=== PATIENT | female | born 1970 ===

== ENCOUNTER 2019-09-08 08:52 | Outpatient (RCR) | payer BC ==
[~2019-09-08] VITALS: Ht 167.4 cm; Wt 115.9 kg
[~2019-09-08 08:52] MED LIST: CETI10TA21 PO; MONT10TA21 PO
[2019-09-14] MEDS ORDERED: IBUP-844 PO (12:52)
[2019-09-14] MEDS ORDERED: DOCU-143 PO (12:52)
[2019-09-14] MEDS ORDERED: TRZ50T PO (12:52)
[2019-09-14] MEDS ORDERED: ACET-93 PO (12:52)
[2019-09-14] MEDS ORDERED: OXYC5TAB96 PO (12:52)
[2019-09-14] MEDS ORDERED: SIME80TA16 PO (12:52)
== END 2019-09-08 14:42 | disposition home or self-care (01) ==
LOC: PREOP 08:52
PROVIDERS: ATTEND Obstetrics & Gynecology
DX: Z01.818 Encounter for other preprocedural examination (principal); Z11.59 Encounter for screening for other viral diseases
CPT/HCPCS: 87635

== ENCOUNTER 2019-09-12 09:15 | Inpatient (IN) | payer BC ==
[~2019-09-12] VITALS: Ht 167 cm; Wt 115.9 kg
[2019-09-12] VITALS (10 sets, daily range): BP systolic 119–156; BP diastolic 79–95
[2019-09-12] MEDS ORDERED: metroNIDAZOLE 500MG/100ML IVPB 100 ML IV ONE (09:30)
[2019-09-12] MEDS ORDERED: ceFAZolin INJECTION 1,000 MG in WATER (STERILE) FOR INJECTION 10 ML IV ONE (09:30)
[2019-09-12 09:41] LABS: BILIRUBIN,URINE NEGATIVE (NEGATIVE); CLARITY,URINE CLEAR; COLOR,URINE YELLOW; GLUCOSE, URINE (UA) NEGATIVE (NEGATIVE); KETONES,URINE 1+ (NEGATIVE); LEUKOCYTE ESTERASE ,URINE NEGATIVE (NEGATIVE); NITRITE,URINE NEGATIVE (NEGATIVE); PROTEIN,URINE NEGATIVE (NEGATIVE)
--- OUTSIDE RECORDS SUMMARY | 2019-09-12 09:47 | XMS REPORT ---
Author Author Ana Pinto Organization [facility] Address [address] [place], [place] [id number] Care Team Providers Care Rehab Assistant Name Role Phone Sondra Pinto PCP Sondra Pinto PreferredProvider Allergies and Adverse Reactions Name Reaction Notes PENICILLINS hives Bactrim DS Plan of Treatment Not available. Medications Active Name Start Date Estimated Completion Date SIG Co mments cetirizine 10 mg oral tablet 03/08/2019 danyelle e 1 tablet (10 mg) by oral route once daily montelukast 10 mg oral tablet 03/08/2019 ta ke 1 tablet (10 mg) by oral route once daily in the evening Symbicort 160-4.5 mcg/actuation inhalation HFA aerosol inhal er 07/10/2019 09/08/2019 inhale1 puffs by inhalation route 4 clara es per day AND RINSE THROAT AFTER USING Name Start Date Expiration Date SIG Comments Keflex 500 mg oral capsule 07/19/2009 07/26/2009 take 1 capsule (500 mg) by oral route every 12 hours for 7 days Flagyl 500 mg oral tablet 09/30/2010 10/05/2010 take 1 tablet (500 mg) by oral route every 8 hours for 5 days Cipro 500 mg oral tablet 09/30/2010 10/05/2010 take 1 tablet (500 mg) by oral route every 12 hours for 5 days Zithromax Z-Javier 250 mg oral tablet 08/07/2011 08/12/2011 take 2 tablets (500 mg) by oral route once daily for 1 day then 1 tablet (250 mg) by oral route once daily for 4 days Levaquin 500 mg oral tablet 08/26/2011 09/09/2011 take 1 tablet (500 mg) by oral route once daily for 7 days benzonatate 200 mg oral capsule 03/01/2012 03/11/2012 TAKE 1 CAPSULE BY MOUTH THREE TIMES DAILY NEEDED Zithromax Z-Javier 250 mg oral tablet 06/01/2012 06/06/2012 take 2 tablets (500 mg) by oral route once daily for 1 day then 1 tablet (250 mg) by oral route once daily for 4 days Cipro 500 mg oral tablet 03/06/2014 03/13/2014 take 1 tablet (500 mg) by oral route every 12 hours for 7 days doxycycline hyclate 100 mg oral capsule 06/04/2014 5 take 1 capsule (100 mg) by oral route 2 times per day for 7 days Zithromax Z-Javier 250 mg oral tablet 10/16/2014 10/26/2014 take 2 tablets (500 mg) by oral route once daily for 1 day then 1 tablet (250 mg) by oral route once daily for 4 days Contrave 8-90 mg oral tablet extended release 10/23/2014 take 2 tablets by oral route 2 times per day in the morning and evening for 30 days azithromycin 250 mg oral tablet 03/28/2016 04/02/2016 take 2 tablets (500 mg) by oral route once daily for 1 day then 1 tablet (250 mg) by oral route once daily for 4 days prednisone 20 mg oral tablet 03/28/2016 04/03/2016 Danyelle e 3 tabs x 2 days; then 2 tabs x 2 days; then 1 tab x 2 days Vibramycin 100 mg oral capsule 05/25/2017 06/04/2017 1 CAP BID FOR 10 DAYS Symbicort 160-4.5 mcg/actuation inhalation HFA aerosol inhal er 05/25/2017 06/24/2017 inhale1 puff by inhalation route 4 times per day AND THEN RINSE THROAT Medrol (Javier) 4 mg oral tablets,dose pack 06/04/2017 take as directed 6<5<4,3<2,>1 Zithromax 250 mg oral tablet 12/23/2017 12/28/2017 danyelle e 2 tablets (500 mg) by oral route once daily for 1 day then 1 tablet (250 mg) by oral route once daily for 4 days Medrol (Javier) 4 mg oral tablets,dose pack 12/23/2017 12/30/19 18 take 6 today then 5>4>3>2>1 lovastatin 10 mg oral tablet 03/07/2018 09/03/2018 danyelle e 1 tablet (10 mg) by oral route once daily with the evening meal ON Wednesday AND WEDNESDAY doxycycline hyclate 100 mg oral capsule 05/05/2018 9 take 1 capsule (100 mg) by oral route 2 times per day for 7 days prednisone 20 mg oral tablet 05/05/2018 danyelle e 2 tablet (40 mg) po x 3 days and then 1 tab (20 MG) po x 4 days Cipro 500 mg oral tablet 07/27/2018 08/06/2018 take 1 tablet (500 mg) by oral route every 12 hours for 10 days Zithromax 250 mg oral tablet 02/08/2019 02/13/2019 danyelle e 2 tablets (500 mg) by oral route once daily for 1 day then 1 tablet (250 mg) by oral route once daily for 4 days Tamiflu 75 mg oral capsule 05/24/2019 06/03/2019 take 1 capsule (75 mg) by oral route once daily for 10 days Zithromax 250 mg oral tablet 06/19/2019 06/30/2019 danyelle e 2 tablets (500 mg) by oral route once daily for 1 day then 1 tablet (250 mg) by oral route once daily for 10 days Discontinued Name Start Date Discontinued Date SIG Comments nystatin 100,000 unit/gram topical cream 011 apply to the affected area(s) by topical route 3 times per day DEJON (28) 3-0.02 mg oral tablet 02/03/2010 02/07/2010 t mehreen 1 tablet by oral route once daily for 28 days Too expensive Microgestin FE 05/08 () 1 mg-20 mcg (21)/75 mg (7) oral tab let 02/07/2010 01/30/2011 take 1 tablet by oral route once daily WelChol 625 mg oral tablet 09/30/2010 01/30/2011 take 3 tablets (1,875 mg) by oral route 2 times per day with meals and liquid Medrol (Javier) 4 mg oral tablets,dose pack 01/30/2011 04/24/2011 take as directed prednisone 20 mg oral tablet 06/04/2014 06/04/2014 Danyelle e 2 tabs PO x 2 days, then 1 tab PO x 2 days Lexapro 10 mg oral tablet 12/05/2015 04/21/2017 take 1 tablet (10 mg) by oral route once daily nystatin 100,000 unit/gram topical powder 07/21/2016 04/21/19 18 apply to the affected area(s) by topical route 3 times per day Zithromax 250 mg oral tablet 04/21/2017 05/04/2017 danyelle e 2 tablets (500 mg) by oral route once daily for 1 day then 1 tablet (250 mg) by oral route once daily for 4 days cyclobenzaprine 10 mg oral tablet 05/04/2017 05/25/201704/20 to 1 tablet at bedtime for muscle spasms and headaches montelukast 10 mg oral tablet 12/29/2017 02/22/2018 ta ke 1 tablet (10 mg) by oral route once daily in the evening for 30 days Skelaxin 800 mg oral tablet 07/22/2018 01/30/2019 take 1 tablet (800 mg) by oral route 3 times per day as needed cyclobenzaprine 5 mg oral tablet 07/22/2018 01/30/2019 take 1 tablet (5 mg) by oral route daily at HS PRN Problem List Description Status Onset Mixed hyperlipidemia Active 03/07/2018 [place] (nonalcoholic steatohepatitis) Active 02/17 Vital Signs Date Time BP-Sys(mm[Hg] BP-Sweta(mm[Hg]) HR(bpm) RR(rpm) Temp WT HT HC BMI BSA BMI Percentile O2 Sat(%) 07/10/2019 2:21:00 PM 144 mm[Hg] 90 mm[Hg] 78 {beats}/min 18 rpm 98.2 F 263 lbs 66 in 42.4489 kg/m2 2.3569 m2 94 % 06/19/2019 10:00:00 AM 132 mm[Hg] 86 mm[Hg] 80 {beats}/min 18 rpm 98.2 F 251 lbs 66 in 40.51 kg/m2 2.30 m2 96 % 06/05/2019 10:05:00 AM 110 mm[Hg] 70 mm[Hg] 72 {beats}/min 18 rpm 98.8 F 254.5 lbs 66 in 41.077 kg/m2 2.3185 m2 96 % 04/18/2019 3:15:00 PM 138 mm[Hg] 88 mm[Hg] 78 {beats}/min 18 rpm 98.8 F 264 lbs 66 in 42.61 kg/m2 2.36 m2 96 % 02/08/2019 10:42:00 AM 142 mm[Hg] 92 mm[Hg] 88 {beats}/min 18 rpm 98.8 F 255 lbs 66 in 41.1577 kg/m2 2.3208 m2 96 % 01/30/2019 8:09:00 AM 138 mm[Hg] 86 mm[Hg] 78 {beats}/min 18 rpm 98.1 F 255 lbs 66 in 41.16 kg/m2 2.32 m2 98 % 08/24/2018 3:27:00 PM 148 mm[Hg] 88 mm[Hg] 93 {beats}/min 18 rpm 97.9 F 248 lbs 66 in 40.0278 kg/m2 2.2887 m2 98 % 08/01/2018 10:13:00 AM 138 mm[Hg] 78 mm[Hg] 104 {beats}/min 18 rpm 241 lbs 66 in 38.90 kg/m2 2.26 m2 96 % 07/27/2018 2:15:00 PM 148 mm[Hg] 80 mm[Hg] 112 {beats}/min 18 rpm 99.5 F 246.375 lbs 66 in 39.77 kg/m2 2.28 m2 94 % 07/22/2018 3:38:00 PM 158 mm[Hg] 96 mm[Hg] 86 {beats}/min 16 rpm 97.9 F 248.125 lbs 66 in 40.048 kg/m2 2.2893 m2 98 % 05/05/2018 2:02:00 PM 160 mm[Hg] 98 mm[Hg] 105 {beats}/min 18 rpm 98.8 F 244 lbs 66 in 39.38 kg/m2 2.27 m2 95 % 03/28/2018 7:56:00 AM 128 mm[Hg] 86 mm[Hg] 82 {beats}/min 18 rpm 98.1 F 241.25 lbs 66 in 38.9384 kg/m2 2.2574 m2 97 % 02/22/2018 3:18:00 PM 128 mm[Hg] 78 mm[Hg] 68 {beats}/min 18 rpm 98.1 F 239 lbs 66 in 38.58 kg/m2 2.25 m2 99 % 12/23/2017 2:00:00 PM 126 mm[Hg] 78 mm[Hg] 88 {beats}/min 18 rpm 98.2 F 242.125 lbs 66 in 39.0796 kg/m2 2.2615 m2 98 % 06/07/2017 9:00:00 AM 124 mm[Hg] 74 mm[Hg] 98 {beats}/min 18 rpm 98.3 F 249 lbs 66 in 40.19 kg/m2 2.29 m2 97 % 05/25/2017 1:44:00 PM 132 mm[Hg] 88 mm[Hg] 104 {beats}/min 18 rpm 98.4 F 257 lbs 66 in 41.4805 kg/m2 2.3299 m2 97 % 05/04/2017 3:44:00 PM 132 mm[Hg] 88 mm[Hg] 82 {beats}/min 18 rpm 98.6 F 258 lbs 66 in 41.64 kg/m2 2.33 m2 97 % 04/21/2017 1:54:00 PM 122 mm[Hg] 84 mm[Hg] 90 {beats}/min 18 rpm 98.8 F 255.375 lbs 66 in 41.2182 kg/m2 2.3225 m2 97 % 05/10/2016 3:45:00 PM 138 mm[Hg] 88 mm[Hg] 99 {beats}/min 18 rpm 96.8 F 255 lbs 66 in 41.16 kg/m2 2.32 m2 97 % 03/28/2016 1:16:00 PM 140 mm[Hg] 84 mm[Hg] 106 {beats}/min 18 rpm 100.9 F 259 lbs 66 in 41.8033 kg/m2 2.339 m2 97 % 12/05/2015 10:20:00 AM 152 mm[Hg] 83 mm[Hg] 87 {beats}/min 98.8 F 259 lbs 66 in 41.80 kg/m2 2.34 m2 04/08/2015 9:19:00 AM 145 mm[Hg] 90 mm[Hg] 83 {beats}/min 16 rpm 97.6 F 256 lbs 66 in 41.3191 kg/m2 2.3254 m2 97 % 03/07/2015 7:36:00 PM 144 mm[Hg] 84 mm[Hg] 79 {beats}/min 18 rpm 98.6 F 257.125 lbs 66 in 41.50 kg/m2 2.33 m2 98 % 10/23/2014 9:09:00 AM 160 mm[Hg] 78 mm[Hg] 96 {beats}/min 16 rpm 98.3 F 251 lbs 66 in 40.512 kg/m2 2.3025 m2 98 % 10/16/2014 10:36:00 AM 140 mm[Hg] 90 mm[Hg] 92 {beats}/min 16 rpm 98.4 F 250 lbs 77 in 29.65 kg/m2 2.48 m2 97 % 06/07/2014 2:50:00 PM 162 mm[Hg] 80 mm[Hg] 78 {beats}/min 18 rpm 98.8 F 252.5 lbs 66 in 40.7541 kg/m2 2.3094 m2 99 % 06/04/2014 2:21:00 PM 150 mm[Hg] 80 mm[Hg] 92 {beats}/min 18 rpm 99.3 F 247 lbs 66 in 39.87 kg/m2 2.28 m2 96 % 05/22/2014 1:36:00 PM 152 mm[Hg] 88 mm[Hg] 64 {beats}/min 16 rpm 98.1 F 250 lbs 66 in 40.3506 kg/m2 2.298 m2 03/06/2014 2:00:00 PM 140 mm[Hg] 80 mm[Hg] 104 {beats}/min 18 rpm 98.2 F 240 lbs 66 in 38.74 kg/m2 2.25 m2 96 % 08/01/2013 8:50:00 AM 155 mm[Hg] 81 mm[Hg] 76 {beats}/min 99.1 F 22 4 lbs 66 in 36.1542 kg/m2 2.1752 m2 06/15/2012 3:17:00 PM 133 mm[Hg] 82 mm[Hg] 94 {beats}/min 97.9 F 24 3 lbs 66 in 39.22 kg/m2 2.27 m2 06/01/2012 11:27:00 AM 132 mm[Hg] 64 mm[Hg] 66 {beats}/min 18 rpm 98 F 239 lbs 66 in 38.5752 kg/m2 2.2468 m2 01/27/2012 1:32:00 PM 124 mm[Hg] 66 mm[Hg] 66 {beats}/min 18 rpm 97 F 236.25 lbs 66 in 38.13 kg/m2 2.23 m2 08/26/2011 9:46:00 AM 120 mm[Hg] 72 mm[Hg] 68 {beats}/min 18 rpm 98.4 F 228 lbs 66 in 36.7998 kg/m2 2.1945 m2 05/08/2011 9:44:00 AM 122 mm[Hg] 64 mm[Hg] 66 {beats}/min 18 rpm 97.5 F 221 lbs 66 in 35.67 kg/m2 2.16 m2 04/24/2011 3:12:00 PM 133 mm[Hg] 88 mm[Hg] 92 {beats}/min 98.8 F 220 lbs 66 in 35.5086 kg/m2 2.1557 m2 01/30/2011 3:00:00 PM 130 mm[Hg] 60 mm[Hg] 84 {beats}/min 18 rpm 98.4 F 221 lbs 98 % 09/30/2010 10:08:00 AM 154 mm[Hg] 84 mm[Hg] 112 {beats}/min 20 rpm 99.5 F 200 lbs 04/16/2010 9:28:00 AM 150 mm[Hg] 90 mm[Hg] 105 {beats}/min 97.4 F 240 lbs 66 in 38.7366 kg/m2 2.2515 m2 02/03/2010 2:48:00 PM 145 mm[Hg] 81 mm[Hg] 85 {beats}/min 97.9 F 238 lbs 66 in 38.41 kg/m2 2.24 m2 07/17/2009 9:09:00 AM 130 mm[Hg] 78 mm[Hg] 88 {beats}/min 20 rpm 98.3 F 249 lbs 66 in 40.1892 kg/m2 2.2934 m2 Social History Name Description Comments denies smoking denies alcohol 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 Tobacco Never smoker History of Procedures Date Ordered Description Order Status 03/13/2015 12:00 AM X-RAY EXAM OF KNEE 3 Reviewed 03/07/2015 12:00 AM TDAP VACCINE 7 YRS/> IM Reviewed 03/07/2015 12:00 AM THER/PROPH/DIAG INJ SC/IM Reviewed 04/08/2015 12:00 AM Employment Physical Reviewed 01/30/2011 12:00 AM X-RAY EXAM SACRUM TAILBONE Reviewed 04/24/2011 12:00 AM CYTOPATH C/V MANUAL Reviewed 04/24/2011 12:00 AM SPECIMEN HANDLING OFFICE-LAB Reviewed 04/24/2011 12:00 AM CHLAMYDIA CULTURE Reviewed 04/24/2011 12:00 AM N.GONORRHOEAE DNA AMP PROB Reviewed 04/24/2011 12:00 AM HIV-1ANTIBODY Reviewed 04/24/2011 12:00 AM HEPATITIS B SURFACE AG EIA Reviewed 04/24/2011 12:00 AM HEPATITIS C AB TEST Reviewed 04/24/2011 12:00 AM SYPHILIS TEST NON-TREP QUAL Reviewed 05/08/2011 12:00 AM THER/PROPH/DIAG INJ SC/IM Reviewed 05/08/2011 12:00 AM Decadron 1 mg ND#[id number] (Eva) Reviewed 05/08/2011 12:00 AM Depo-Medrol 80 mg NDC#[id number] te Reviewed 12/11/2015 12:00 AM Screening mammography, bilateral Reviewe d 12/05/2015 12:00 AM SPECIMEN HANDLING OFFICE-LAB Reviewed 12/05/2015 12:00 AM CYTOPATH C/V THIN LAYER Reviewed 07/17/2009 12:00 AM URINE CULTURE/COLONY COUNT Reviewed 07/17/2009 12:00 AM URINE TEST Reviewed 07/17/2009 12:00 AM URINALYSIS AUTO W/O SCOPE Reviewed 04/21/2017 2:24 PM INFLUENZA A/B AG EIA Reviewed 04/06/2012 12:00 AM MAMMOGRAM SCREENING Reviewed 05/04/2017 12:00 AM THER/PROPH/DIAG INJ SC/IM Reviewed 05/04/2017 12:00 AM Decadron 4mg Injection Reviewed 05/04/2017 12:00 AM Depo-Medrol 40mg Injection Reviewed 04/21/2017 12:00 AM INFLUENZA A/B AG EIA Reviewed 06/07/2017 12:00 AM MAMMOGRAPHY SCREENING, DIGITAL Reviewed 06/24/2017 12:00 AM ROUTINE VENIPUNCTURE Reviewed 06/24/2017 12:00 AM LIPID PANEL Reviewed 06/24/2017 12:00 AM COMPREHEN METABOLIC PANEL Reviewed 06/24/2017 12:00 AM COMPLETE CBC W/AUTO DIFF WBC Reviewed 06/01/2012 12:00 AM INFLUENZA A/B AG EIA Reviewed 06/01/2012 12:00 AM Phenergan, Up to 50 Mg ND#1195-0280-30 Reviewed 06/01/2012 12:00 AM Toradol 60 Mg ND#[id number] Reviewed 06/01/2012 12:00 AM THER/PROPH/DIAG INJ SC/IM Reviewed 06/15/2012 12:00 AM CYTOPATH C/V MANUAL Reviewed 06/15/2012 12:00 AM SPECIMEN HANDLING OFFICE-LAB Reviewed 03/28/2018 12:00 AM ALLERGEN SPECIFIC IGE Reviewed 03/28/2018 12:00 AM ALLERGEN SPECIFIC IGE Reviewed 02/22/2018 12:00 AM COMPLETE CBC W/AUTO DIFF WBC Reviewed 02/22/2018 12:00 AM COMPREHEN METABOLIC PANEL Reviewed 02/22/2018 12:00 AM ASSAY OF AMYLASE Reviewed 02/22/2018 12:00 AM ASSAY OF LIPASE Reviewed 02/22/2018 12:00 AM US EXAM ABDOM COMPLETE Reviewed 07/27/2018 12:00 AM INFLUENZA A/B AG EIA Reviewed 07/27/2018 12:00 AM THER/PROPH/DIAG INJ SC/IM Reviewed 07/27/2018 12:00 AM Decadron 4mg Injection Reviewed 07/27/2018 12:00 AM Depo-Medrol 40mg Injection Reviewed 07/27/2018 2:47 PM INFLUENZA A/B AG EIA Reviewed 08/01/2018 12:00 AM RADEX SPINE CERVICAL 2 OR 3 VIEWS Return ed 08/01/2018 12:00 AM RADEX SPINE THORACIC 2 VIEWS Returned 07/22/2018 12:00 AM ELECTROCARDIOGRAM TRACING Returned 07/22/2018 12:00 AM COMPLETE CBC W/AUTO DIFF WBC Reviewed 07/22/2018 12:00 AM COMPREHEN METABOLIC PANEL Reviewed 07/22/2018 12:00 AM ASSAY OF TROPONIN QUANT Reviewed 07/22/2018 12:00 AM Norflex 60mg Injection Reviewed 02/08/2019 12:00 AM THER/PROPH/DIAG INJ SC/IM Reviewed 02/08/2019 12:00 AM Decadron 4mg Injection Reviewed 02/08/2019 12:00 AM Depo-Medrol 40mg Injection Reviewed 02/08/2019 11:07 AM FALL RISK ASSESSMENT DOCD Reviewed 02/08/2019 11:07 AM SCREEN DEPRESSION PERFORMED Reviewed 01/30/2019 12:00 AM COMPREHEN METABOLIC PANEL Reviewed 01/30/2019 12:00 AM CYTOPATH C/V THIN LAYER Reviewed 01/30/2019 12:00 AM BREAST TOMOSYNTHESIS BI Reviewed 02/08/2019 11:13 AM FALL RISK ASSESSMENT DOCD Reviewed 02/08/2019 11:13 AM SCREEN DEPRESSION PERFORMED Reviewed 08/01/2013 12:00 AM CYTOPATH C/V MANUAL Reviewed 08/01/2013 12:00 AM SPECIMEN HANDLING OFFICE-LAB Reviewed 08/01/2013 12:00 AM MAMMOGRAM BOTH BREASTS Reviewed 04/18/2019 3:47 PM FALL RISK ASSESSMENT DOCD Reviewed 04/18/2019 3:47 PM SCREEN DEPRESSION PERFORMED Reviewed 06/05/2019 12:[address] ABD & PELV W/CONTRAST Reviewed 06/05/2019 8:24 PM FALL RISK ASSESSMENT DOCD Reviewed 06/05/2019 8:24 PM SCREEN DEPRESSION PERFORMED Reviewed 06/19/2019 10:34 AM FALL RISK ASSESSMENT DOCD Reviewed 06/19/2019 10:34 AM SCREEN DEPRESSION PERFORMED Reviewed 07/10/2019 3:42 PM FALL RISK ASSESSMENT DOCD Reviewed 07/10/2019 3:42 PM SCREEN DEPRESSION PERFORMED Reviewed 06/07/2019 12:00 AM Kenalog 40mg Injection Reviewed 06/07/2019 12:00 AM THER/PROPH/DIAG INJ SC/IM Reviewed 06/07/2019 12:00 AM US EXAM PELVIC COMPLETE Reviewed 02/03/2010 12:00 AM CYTOPATH C/V MANUAL Reviewed 02/03/2010 12:00 AM SPECIMEN HANDLING OFFICE-LAB Reviewed 02/03/2010 12:00 AM MAMMOGRAM BOTH BREASTS Reviewed 04/16/2010 12:00 AM BIOPSY OF UTERUS LINING Reviewed 04/16/2010 12:00 AM SPECIMEN HANDLING OFFICE-LAB Reviewed 04/16/2010 12:00 AM CYTOPATH TBS C/V MANUAL Reviewed 03/06/2014 12:00 AM THER/PROPH/DIAG INJ SC/IM Reviewed 03/06/2014 12:00 AM Depo-Medrol 80 mg NDC#[address]-16 Revi ewed 03/06/2014 12:00 AM Decadron, Per 1 Mg NDC# [address]-46 Re viewed 06/04/2014 12:00 AM THER/PROPH/DIAG INJ SC/IM Reviewed 06/04/2014 12:00 AM Depo-Medrol 80 mg NDC#[address]-69 Revi ewed 06/04/2014 12:00 AM Decadron, Per 1 Mg NDC# [address]-36 Re viewed 10/16/2014 12:00 AM THER/PROPH/DIAG INJ SC/IM Reviewed 10/16/2014 12:00 AM Decadron 8 mg NDC# [address]-24 Reviewe d 10/16/2014 12:00 AM Depo-Medrol 80 mg [facility]#[address]-18 Revi ewed 10/23/2014 12:00 AM RADEX SPINE LUMBOSACRAL 2/3 VIEWS Review ed Results Summary Date and Description Results 07/17/2009 9:36 AM TEST UR NEGATIVE P REGNANCY TEST UR NEGATIVE 06/01/2012 12:00 PM INFLUENZA A & B NO INFLUENZA A OR B DETECTED 04/21/2017 2:24 PM Influenza A negative Influen za B negative 06/24/2017 4:13 PM WBC 5.2 RBC 4.96 HGB 13.80 g /dLHCT 42.90 %MCV 87.0 fLMCH 27.80 pgMCHC 32.20 g/dLRDW SD 46 RDW CV 14.60 %MPV 12.40 fLPLT 259 NRBC# 0.00 NRBC% 0.0 %NEUT 54.60 %%LYMP 33.80 %%MONO 8.10 %%EOS 2.90 %%BASO 0.60 %#NEUT 2.82 #LYMP 1.75 #MONO 0.42 #EOS 0.15 #BASO 0.03 MANUAL DIFF NOT IND TRIGLYCERIDES 234.0 mg/dLCHOLESTEROL 221.0 mg/dLHDL 52.0 mg/dLTOT CHOL/HDL 4.3 LDL (CALC) 122.0 mg/dLGLUCOSE 106.0 mg/dLSODIUM 141.0 mmol/LPOTASSIUM 4.10 mmol/LCHLORIDE 107.0 mmol/LCO2 26.0 mmol/LBUN 11.0 mg/dLCREATININE 0.70 mg/dLSGOT/AST 10.0 IU/LSGPT/ALT 18.0 IU/LALK PHOS 84.0 IU/LTOTAL PROTEIN 7.50 g/dLALBUMIN 4.30 g/dLTOTAL BILI 0.40 mg/dLCALCIUM 9.0 mg/dLAGE 46 GFR NonAA 90 GFR AA 109 eGFR >60 mL/min/1.73 m2eGFR AA* >60 02/22/2018 4:00 PM WBC 8.0 RBC 4.94 HGB 13.90 g /dLHCT 43.0 %MCV 87.0 fLMCH 28.10 pgMCHC 32.30 g/dLRDW SD 46 fLRDW CV 14.60 %MPV 10.90 fLPLT 376 NRBC# 0.00 NRBC% 0.0 %NEUT 59.8 %LYMP 28.1 %MONO 8.0 %EOS 3.5 %BASO 0.3 #NEUT 4.77 #LYMP 2.24 #MONO 0.64 #EOS 0.28 #BASO 0.02 MANUAL DIFF NOT IND GLUCOSE 115 SODIUM 140 POTASSIUM 3.8 CHLORIDE 105.0 mmol/LCO2 25 BUN 10.0 mg/dLCREATININE 0.70 mg/dLSGOT/AST 13 SGPT/ALT 14 ALK PHOS 84 TOTAL PROTEIN 8.2 ALBUMIN 4.6 TOTAL BILI 0.4 CALCIUM 9.90 mg/dLAGE 47 GFR NonAA 89 GFR AA 108 eGFR 89 eGFR AA* >60 mL/min/1.73 [id number] IU/LLIPASE 20 03/28/2018 8:30 AM Class Description COMMENT D0 01-IgE D pteronyssinus 6.54 D002- IgE D farinae 3.24 K296-AsL Cat Dander 0.16 C175-JbN Dog Dander 0.10 J759-CsJ [place] Grass <0.10 W424-YaM Bluegrass,[place] healthy <0.10 O095-AxW Immanuel Grass <0.10 N333-WcQ Cockroach,[place]an 0.18 W032-FtO Penicilliumchrysogen <0.10 M002- IgE Cladosporiumherbarum <0.10 J916-JvB Aspergillusfumigatus <0.10 S233-BnU Mucor racemosus <0.10 N792-DmC Alternariaalternata 1.49 G098-QwA Stemphyliumherbarum <0.10 G727-ZaM Maple/[place] <0.10 W538-DjM [place], White <0.10 P472-KlF Elm, [place]an <0.10 A548-NcN [place] <0.10 S669-XgB Magnus, White 0.11 R802-VcN Maple LeafSycamore <0.10 Q430-DaR White [place] <0.10 L246-CiG Ragweed, Short 23.10 V258-KsI [place] 1.43 Y888-InZ Plantain,Turkish 0.11 W011- IgE Thistle, Citizen Of [place] <0.10 U725-QiT Pigweed, Common <0.10 Z445-AoL Sheep [place] <0.10 Class Description COMMENT H425-DlA Milk <0.10 O751-HlA Wheat <0.10 F008- IgE [place] <0.10 O657-SgR Peanut <0.10 V027-DqY Soybean <0.10 X189-EsF Pork <0.10 K014-NlR Beef 0.25 CI24-NwF Food Mix(Seafoods) Negative P626-ThL Egg, Whole <0.10 X938-XvV Chocolate/[place] <0.10 04/15/2018 12:42 PM Falls in last 6 months? No U nsteady or worry about falling? No Fall Risk Assessment Not At Risk During the past month, have you been feeling depressed? No During the past month, have you lost interest in usual activity? No 07/22/2018 5:00 PM WBC 9.2 RBC 4.78 HGB 13.70 g /dLHCT 40.50 %MCV 85.0 fLMCH 28.70 pgMCHC 33.80 g/dLRDW SD 44 fLRDW CV 14.20 %MPV 10.10 fLPLT 322 NRBC# 0.00 NRBC% 0.0 %NEUT 61.0 %LYMP 29.3 %MONO 6.2 %EOS 2.8 %BASO 0.4 #NEUT 5.61 #LYMP 2.70 #MONO 0.57 #EOS 0.26 #BASO 0.04 MANUAL DIFF NOT IND TROPONIN-I AD <0.04 GLUCOSE 89 SODIUM 139 POTASSIUM 3.5 CHLORIDE 107.0 mmol/LCO2 22 BUN 10.0 mg/dLCREATININE 0.70 mg/dLSGOT/AST 10 SGPT/ALT 12 ALK PHOS 90 TOTAL PROTEIN 7.6 ALBUMIN 4.4 TOTAL BILI 0.3 CALCIUM 9.50 mg/dLAGE 47 GFR NonAA 89 GFR AA 108 eGFR 89 eGFR AA* >60 mL/min/1.73 m2 07/27/2018 2:47 PM Falls in last 6 months? No U nsteady or worry about falling? No Fall Risk Assessment Not At Risk During the past month, have you been feeling depressed? No During the past month, have you lost interest in usual activity? No Influenza A NEGATIVE Influenza B NEGATIVE 01/30/2019 8:45 AM GLUCOSE 106 SODIUM 143 POTAS SIUM 4.2 CHLORIDE 106.0 mmol/LCO2 28 BUN 9.0 mg/dLCREATININE 0.690 mg/dLSGOT/AST 15 SGPT/ALT 18 ALK PHOS 81 TOTAL PROTEIN 7.5 ALBUMIN 4.4 TOTAL BILI 0.4 CALCIUM 9.40 mg/dLAGE 48 GFR NonAA 90 GFR AA 109 eGFR 90 mL/min/1.73meGFR AA* >60 mL/min/1.73m 02/08/2019 11:07 AM Falls in last 6 months? No U nsteady or worry about falling? No Fall Risk Assessment Not At Risk During the past month, have you been feeling depressed? No During the past month, have you lost interest in usual activity? No 02/08/2019 11:13 AM Falls in last 6 months? No U nsteady or worry about falling? No Fall Risk Assessment Not At Risk During the past month, have you been feeling depressed? No During the past month, have you lost interest in usual activity? No 04/18/2019 3:47 PM Falls in last 6 months? No U nsteady or worry about falling? No Fall Risk Assessment Not At Risk During the past month, have you been feeling depressed? No During the past month, have you lost interest in usual activity? No 06/05/2019 8:24 PM Falls in last 6 months? No U nsteady or worry about falling? No Fall Risk Assessment Not At Risk During the past month, have you been feeling depressed? No During the past month, have you lost interest in usual activity? No 06/19/2019 10:34 AM Falls in last 6 months? No U nsteady or worry about falling? No Fall Risk Assessment Not At Risk During the past month, have you been feeling depressed? No During the past month, have you lost interest in usual activity? No 07/10/2019 3:42 PM Falls in last 6 months? No U nsteady or worry about falling? No Fall Risk Assessment Not At Risk During the past month, have you been feeling depressed? No During the past month, have you lost interest in usual activity? No History Of Immunizations Name Date Admin Mfg Name Mfg Code Trade Name Lot# Route Inj Vis Given Vis Pub CVX Tdap 03/07/2015 [employer] SKB BOOSTRIX [id number] Intramuscula r Left Deltoid 03/07/2015 08/25/2012 115 History of Past Illness Name Date of Onset Comments NO SIGNIFICANT MEDICAL HX GIVEN Acute cystitis Jul 17 2009 9:16AM Menorrhagia Feb 03 2010 2:55PM Family history of malignant neoplasm; genital organs; other Feb 03 2010 2:55PM Menorrhagia Apr 16 2010 10:07AM Menorrhagia Apr 16 2010 9:31AM Colitis Sep 30 2010 10:10AM Sinusitis Sep 30 2010 10:10AM Coccyx pain Jan 30 2011 2:58PM Mixed hyperlipidemia 03/07/2018 [place] (nonalcoholic steatohepatitis) 03/07/2018 Routine gynecological examination Apr 24 2011 3:16PM Special screening examination for bacter ial and spirochetal diseases; venereal disease Apr 24 2011 3:16PM Sinusitis, Acute May 08 2011 9:46AM Sinusitis Aug 26 2011 9:50AM General Medical Exam, Adult Jan 27 2012 1:37PM Screening Mammogram Apr 06 2012 2:10PM Upper Respiratory Infections Jun 01 2012 11:30AM Sinusitis, Acute Jun 01 2012 11:30AM Routine gynecological examination Jun 15 2012 3:20PM Routine gynecological examination Aug 01 2013 8:55AM Screening Mammogram Aug 01 2013 11:02AM Sinusitis Mar 06 2014 2:02PM General Medical Exam, Adult Jun 07 2014 2:55PM Sinusitis Jun 04 2014 2:23PM Sinusitis Oct 16 2014 10:38AM Low Back Pain Oct 23 2014 9:11AM BMI 40.0-44.9, adult Oct 23 2014 9:11AM Elevated blood pressure Oct 23 2014 9:11AM Knee pain, right Mar 13 2015 12:43PM Right knee pain Mar 07 2015 7:38PM Abrasions of multiple sites Mar 07 2015 7:38PM Pre-employment examination Apr 08 2015 9:21AM Encounter for screening mammogram for breast cancer Dec 04 2 016 10:34AM Routine gynecological examination Dec 05 2015 10:26AM Yeast dermatitis Dec 05 2015 10:26AM Depression Dec 05 2015 10:26AM Upper respiratory infection Mar 28 2016 1:19PM Gastroenteritis May 10 2016 3:47PM Diarrhea May 10 2016 3:47PM Parotiditis Apr 21 2017 1:57PM Lymphadenopathy Apr 21 2017 1:57PM Viral gastroenteritis Apr 21 2017 1:57PM Arthralgia, unspecified joint Apr 21 2017 1:57PM Muscle spasm May 04 2017 3:45PM Torticollis, acute May 04 2017 3:45PM Tension headache May 04 2017 3:45PM Acute pharyngitis, unspecified etiology May 25 2017 1:47PM Acute non-recurrent maxillary sinusitis May 25 2017 1:47PM Pneumonia of both lower lobes due to Mycoplasma pneumoniae F 2017 1:47PM Auditory tube disorder, bilateral May 25 2017 1:47PM General medical examination; routine gen eral medical examination at a health care facility Jun 07 2017 9:03AM Screening Mammogram For High Risk Patient Jun 07 2017 9:03A M Fibrocystic breast determined by biopsy Jun 07 2017 9:03AM Family history of uterine cancer Jun 07 2017 9:03AM Cystocele, midline Jun 07 2017 9:03AM Urinary incontinence, urge Jun 07 2017 9:03AM Adult general medical exam Jun 24 2017 7:56AM Acute suppurative otitis media of left e ar without spontaneous rupture of tympanic membrane, recurrence not specified Dec 23 2017 2:03PM Acute non-recurrent pansinusitis Dec 23 2017 2:03PM Right upper quadrant abdominal pain Feb 22 2018 3:20PM Family history of fatty liver Feb 22 2018 3:20PM Nausea and vomiting, intractability of v omiting not specified, unspecified vomiting type Feb 22 2018 3:20PM Hypertriglyceridemia Feb 22 2018 3:20PM Mixed hyperlipidemia Mar 07 2018 12:35PM [place] (nonalcoholic steatohepatitis) Mar 07 2018 12:35PM Non-seasonal allergic rhinitis, unspecified trigger Mar 28 2 018 7:58AM Fatty liver disease, nonalcoholic Mar 28 2018 7:58AM Nausea Mar 28 2018 7:58AM Acute frontal sinusitis, recurrence not specified May 05 201 9 2:06PM Right arm pain Jul 22 2018 3:41PM Right arm numbness Jul 22 2018 3:41PM Non-seasonal allergic rhinitis, unspecified trigger Jul 27 2 019 2:20PM Acute bronchitis, unspecified organism Jul 27 2018 2:20PM Cough Jul 27 2018 2:20PM Body aches Jul 27 2018 2:20PM Bursitis of right shoulder Jul 27 2018 2:20PM Neck pain Aug 01 2018 10:14AM Thoracic back pain Aug 01 2018 10:14AM Back Pain Aug 01 2018 10:14AM Neck pain Aug 24 2018 3:32PM Thoracic back pain Aug 24 2018 3:32PM Paraspinal muscle spasm Aug 24 2018 3:32PM General medical examination; routine gen eral medical examination at a health care facility Jan 30 2019 8:12AM Screening Mammogram For High Risk Patient Jan 30 2019 8:12A M Pap Smear Jan 30 2019 8:12AM Hyperlipidemia Jan 30 2019 8:12AM Acute non-recurrent pansinusitis Feb 08 2019 10:43AM Purulent rhinitis Feb 08 2019 10:43AM Acute pharyngitis, unspecified etiology Feb 08 2019 10:43AM Obstructive sleep apnea (adult) (pediatric) Apr 18 2019 3:1 7PM Dependence on other enabling machines and devices Apr 18 201 9 3:17PM [place] (nonalcoholic steatohepatitis) Apr 18 2019 3:17PM Left upper quadrant pain Jun 05 2019 10:07AM Fatty liver disease, nonalcoholic Jun 05 2019 10:07AM Nausea and vomiting, intractability of v omiting not specified, unspecified vomiting type Jun 05 2019 10:07AM Left upper quadrant abdominal mass Jun 05 2019 10:07AM Enteritis, bacterial Jun 07 2019 12:17PM Abnormal CT scan, pelvis Jun 07 2019 12:17PM Amenorrhea Jun 07 2019 12:17PM Acute mucoid otitis media of both ears Jun 19 2019 10:02AM Mycoplasma pneumoniae pneumonia Jun 19 2019 10:02AM [place] (nonalcoholic steatohepatitis) Jun 19 2019 10:02AM Allergic asthma Jul 10 2019 2:22PM Cough Jul 10 2019 2:22PM Payers Insurance Name Company Name Plan Name Plan Number Policy Number Henry cy Group Number Start Date BCBS Bcbs [facility] [id number] N/ A [place] Medical [facility] [id number] Friday, 2008 BCBS [place] [id number] [facility] [id number] 2 December [facility] [id number] Wednesday, 2010 [facility] Med Occupational Medicine [id number] Friday, January 27, 2012 BCBS B[place]bs [place] [id number] We April 18, 2014 [employer] [id number] N/A USD 506 [facility] 506 [id number] N/A BCBS [facility] [id number] We February 27, 2015 [facility] [id number] N/ A History of Encounters Visit Date Visit Type Provider 07/10/2019 Office visit Sondra Pinto A PRN 06/19/2019 Office visit Sondra Pinto A PRN 06/07/2019 Office visit Sondra Pinto A PRN 06/05/2019 Office visit Sondra Pinto A PRN 06/03/2019 Hospital Sharon Noriega MD 04/18/2019 Office visit Sondra Pinto A PRN 02/08/2019 Office visit Sondra Pinto A PRN 01/30/2019 Office visit Sondra Pinto A PRN 08/24/2018 Office visit Amna Marion MOLD CAR PUSHER 08/01/2018 Office visit Amna Marion MOLD CAR PUSHER 07/27/2018 Office visit Sondra Pinto A PRN 07/22/2018 Office visit Christal Gamez APR N 07/22/2018 Hospital Sharon Noriega MD 05/05/2018 Office visit Christal Gamez APR N 03/28/2018 Office visit Sondra Pinto A PRN 02/22/2018 Office visit Sondra Pinto A PRN 12/23/2017 Office visit Sondra Pinto A PRN 06/24/2017 Laboratory Sondra Pinto A PRN 06/07/2017 Office visit Sondra Pinto A PRN 05/25/2017 Office visit Sondra Pinto A PRN 05/04/2017 Office visit Sondra Pinto A PRN 04/21/2017 Office visit Sondra Pinto A PRN 05/10/2016 Office visit Alli Iniguez NP 03/28/2016 Office visit Yoli Slade MOLD CAR PUSHER 12/05/2015 Office visit Mica Sloan DO 04/08/2015 Office visit Daniel Acosta APR N 03/07/2015 Office visit Daniel Acosta APR N 10/23/2014 Office visit Reggie Foy MD 10/16/2014 Office visit Reggie Foy MD 06/07/2014 Office visit Reggie Foy MD 06/04/2014 Office visit Daniel Acosta APR N 05/22/2014 Voided Reggie Foy MD 03/06/2014 Office visit Daniel Acosta APR N 08/01/2013 Office visit iLa PowersSally pfeiffer MOLD CAR PUSHER 06/15/2012 Office visit Danilo Cantu MD 06/01/2012 Office visit Amna Marion MOLD CAR PUSHER 01/27/2012 Office visit Amna Marion MOLD CAR PUSHER 08/26/2011 Office visit Reggie Foy MD 05/08/2011 Office visit Amna Marion MOLD CAR PUSHER 04/24/2011 Office visit Danilo Cantu MD 01/30/2011 Office visit Amna Marion MOLD CAR PUSHER 09/30/2010 Office visit Reggie Foy MD 04/16/2010 Office visit Danilo Cantu MD 02/03/2010 Office visit Danilo Cantu MD 07/17/2009 Office visit Ivania MONDRAGON 01/28/2009 Nurse visit Reggie Foy MD 01/10/2009 Office visit Reggie Foy MD 12/26/2008 Office visit Alexys Schultz MD
--- OUTSIDE RECORDS SUMMARY | 2019-09-12 09:48 | XMS REPORT ---
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 Name Role Phone Sondra Pinto PCP Sondra [...] oral route once daily in the evening Name Start Date Expiration Date SIG Comments [...] days cyclobenzaprine 10 mg oral tablet 05/04/2017 05/25/2017 12 to 1 tablet at bedtime for muscle [...] HC BMI BSA BMI Percentile O2 Sat(%) 06/19/2019 10:00:00 AM 132 mm[Hg] 86 mm[Hg] 80 {beats}/min 18 rpm 98.2 F 251 lbs 66 in 40.512 kg/m2 2.3025 m2 96 % 06/05/2019 10:05:00 AM 110 mm[Hg] 70 mm[Hg] 72 {beats}/min 18 rpm 98.8 F 254.5 lbs 66 in 41.08 kg/m2 2.32 m2 96 % 04/18/2019 3:15:00 PM 138 mm[Hg] 88 mm[Hg] 78 {beats}/min 18 rpm 98.8 F 264 lbs 66 in 42.6103 kg/m2 2.3614 m2 96 % 02/08/2019 10:42:00 AM 142 mm[Hg] 92 mm[Hg] 88 {beats}/min 18 rpm 98.8 F 255 lbs 66 in 41.16 kg/m2 2.32 m2 96 % 01/30/2019 8:09:00 AM 138 mm[Hg] 86 mm[Hg] 78 {beats}/min 18 rpm 98.1 F 255 lbs 66 in 41.1577 kg/m2 2.3208 m2 98 % 08/24/2018 3:27:00 PM 148 mm[Hg] 88 mm[Hg] 93 {beats}/min 18 rpm 97.9 F 248 lbs 66 in 40.03 kg/m2 2.29 m2 98 % 08/01/2018 10:13:00 AM 138 mm[Hg] 78 mm[Hg] 104 {beats}/min 18 rpm 241 lbs 66 in 38.898 kg/m2 2.2562 m2 96 % 07/27/2018 2:15:00 PM 148 [...] Comments denies smoking denies alcohol use 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 Alcohol Never Tobacco Never smoker History of [...] Reviewed 05/08/2011 12:00 AM Decadron 1 mg [facility]#[id number] (Eva) Reviewed 05/08/2011 12:00 AM Depo-Medrol 80 mg [facility]#[id number]-Dmpjkw te Reviewed 12/11/2015 12:00 AM Screening mammography, [...] 12:00 AM Phenergan, Up to 50 Mg [facility]#7589-0036-48 Reviewed 06/01/2012 12:00 AM Toradol 60 Mg [facility]#0735-1264-29 Reviewed 06/01/2012 12:00 AM THER/PROPH/DIAG INJ SC/IM [...] 06/05/2019 8:24 PM SCREEN DEPRESSION PERFORMED Reviewed 06/07/2019 12:00 AM Kenalog 40mg Injection Reviewed 06/07/2019 12:00 AM THER/PROPH/DIAG INJ SC/IM Reviewed 06/07/2019 12:00 AM US EXAM PELVIC COMPLETE Returned 06/19/2019 10:34 AM FALL RISK ASSESSMENT DOCD Reviewed 06/19/2019 10:34 AM SCREEN DEPRESSION PERFORMED Reviewed 02/03/2010 12:00 AM CYTOPATH C/V MANUAL Reviewed 02/03/2010 12:00 AM SPECIMEN HANDLING OFFICE-LAB Reviewed 02/03/2010 12:00 AM MAMMOGRAM BOTH BREASTS Reviewed 04/16/2010 12:00 AM BIOPSY OF UTERUS LINING Reviewed 04/16/2010 12:00 AM SPECIMEN HANDLING OFFICE-LAB Reviewed 04/16/2010 12:00 AM CYTOPATH TBS C/V MANUAL Reviewed 03/06/2014 12:00 AM THER/PROPH/DIAG INJ SC/IM Reviewed 03/06/2014 12:00 AM Depo-Medrol 80 mg NDC#[address]-12 Revi ewed 03/06/2014 12:00 AM Decadron, Per 1 Mg NDC# [address]-18 Re viewed 06/04/2014 12:00 AM THER/PROPH/DIAG INJ SC/IM Reviewed 06/04/2014 12:00 AM Depo-Medrol 80 mg NDC#[address]-54 Revi ewed 06/04/2014 12:00 AM Decadron, Per 1 Mg NDC# [address]-68 Re viewed 10/16/2014 12:00 AM THER/PROPH/DIAG INJ SC/IM Reviewed 10/16/2014 12:00 AM Decadron 8 mg NDC# [address]-55 Reviewe d 10/16/2014 12:00 AM Depo-Medrol 80 mg NDC#[address]-08 Revi ewed 10/23/2014 12:00 AM RADEX SPINE [...] 108 eGFR 89 eGFR AA* >60 mL/min/1.73 [id number] 29 IU/LLIPASE 20 03/28/2018 8:30 AM Class Description COMMENT D0 01-IgE D pteronyssinus 6.54 D002- IgE D farinae 3.24 Z083-VcF Cat Dander 0.16 R148-BtI Dog Dander 0.10 O571-BkX Berm[place] Grass <0.10 F782-UyS Bluegrass,[place] <0.10 V932-CeY Immanuel Grass <0.10 W459-KnH Cockroach,Montenegrin 0.18 Z216-RtY Penicilliumchrysogen <0.10 M002- IgE Cladosporiumherbarum <0.10 Y981-OrY Aspergillusfumigatus <0.10 L227-OrV Mucor racemosus <0.10 Z398-BmR Alternariaalternata 1.49 F715-MqR Stemphyliumherbarum <0.10 U279-IbM Maple/[place] <0.10 S543-QrH [place], White <0.10 K489-BiJ Elm, Montenegrin <0.10 W214-AfD [place] <0.10 E604-JxG Magnus, White 0.11 Y797-FjU Maple LeafSycamore <0.10 M793-UfF White [place] <0.10 P779-OyJ Ragweed, Short 23.10 C108-LlK [place] 1.43 G481-EdY Plantain,Saudi Arabian 0.11 W011- IgE Thistle, [place] <0.10 U982-KoI Pigweed, Common <0.10 N235-IiF Sheep [place] <0.10 Class Description COMMENT V821-EvO Milk <0.10 H170-GfG Wheat <0.10 F008- IgE [place] <0.10 Z249-EsD Peanut <0.10 Y348-HdA Soybean <0.10 E222-HpK Pork <0.10 X163-VsW Beef 0.25 YB35-TkK Food Mix(Seafoods) Negative D620-KtN Egg, Whole <0.10 G673-XgL Chocolate/[place] <0.10 04/15/2018 12:42 PM Falls in last [...] Vis Given Vis Pub CVX Tdap 03/07/2015 [employer] H[employer] SKB BOOSTRIX H9P57 Intramuscula r Left Deltoid [...] screening mammogram for breast cancer Dec 04 10:34AM Routine gynecological examination Dec 05 2015 [...] lower lobes due to Mycoplasma pneumoniae F eb 2017 1:47PM Auditory tube disorder, bilateral May [...] frontal sinusitis, recurrence not specified May 05 9 2:06PM Right arm pain Jul 22 [...] [place] (nonalcoholic steatohepatitis) Jun 19 2019 10:02AM Payers Insurance Name Company Name Plan Name Plan Number Policy Number Henry cy Group Number Start Date BCBS [place]bs [place] [id number] N/ A [place] Medical Assistance [facility] [id number] Friday, 2008 BCBS [place] [id number] 2008 [facility] [id number] 2 December [facility] [id number] Wednesday, 2010 [facility] Occupational Medicine [id number] Friday, January 27, 2012 BCBS [place] [id number] We April 18, 2014 [facility] [id number] N/A USD 506 - [facility] USD 506 [id number] N/A BCBS [employer] [place] [id number] We February 27, 2015 BCBS [employer] [place] [id number] N/ A History of Encounters Visit Date Visit Type Provider 06/19/2019 Office visit Sondra Houser PRN 06/07/2019 Office visit Sondra Houser PRN 06/05/2019 Office visit Sondra Houser PRN 06/03/2019 [facility] Sharon Noriega MD 04/18/2019 Office visit Sondra Houser PRN 02/08/2019 Office visit Sondra Houser PRN 01/30/2019 Office visit Sondra Houser PRN 08/24/2018 Office visit Amna Marion STOPE MINER 08/01/2018 Office visit Amna Marion STOPE MINER 07/27/2018 Office visit Sondra Pinto A PRN 07/22/2018 Office visit Christal Gamez APR N 07/22/2018 [facility] Sharon Noriega MD 05/05/2018 Office visit [...] Iniguez NP 03/28/2016 Office visit Yoli Slade STOPE MINER 12/05/2015 Office visit Mica Sloan DO 04/08/2015 Office visit Daniel Acosta APR N 03/07/2015 Office visit Daniel Acosta APR N 10/23/2014 Office visit Reggie Foy MD 10/16/2014 Office visit Reggie Foy MD 06/07/2014 Office visit Reggie Foy MD 06/04/2014 Office visit Daniel Acosta APR N 05/22/2014 Voided Reggie Foy MD 03/06/2014 Office visit Daniel Acosta APR N 08/01/2013 Office visit Lia pfeiffer STOPE MINER 06/15/2012 Office visit Danilo Cantu MD 06/01/2012 Office visit Amna Marion STOPE MINER 01/27/2012 Office visit Amna Marion STOPE MINER 08/26/2011 Office visit Reggie Foy MD 05/08/2011 Office visit Amna Marion STOPE MINER 04/24/2011 Office visit Danilo Cantu MD 01/30/2011 Office visit Amna Marion STOPE MINER 09/30/2010 Office visit Reggie Foy MD 04/16/2010 Office visit Danilo Cantu MD 02/03/2010 Office visit Danilo Cantu MD 07/17/2009 Office visit Ivania MONDRAGON 01/28/2009 Nurse visit Reggie Foy MD 01/10/2009 Office visit Reggie Foy MD 12/26/2008 Office visit Alexys Schultz MD
--- OUTSIDE RECORDS SUMMARY | 2019-09-12 09:48 | XMS REPORT ---
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 Alcohol Never Tobacco Never smoker History of [...] Reviewed 05/08/2011 12:00 AM Decadron 1 mg ND#[id number] (Eva) Reviewed 05/08/2011 12:00 AM Depo-Medrol 80 mg NDC#[id number]-Lwixme te Reviewed 12/11/2015 12:00 AM Screening mammography, [...] 12:00 AM Phenergan, Up to 50 Mg ND#8712-3327-60 Reviewed 06/01/2012 12:00 AM Toradol 60 Mg ND#2231-9902-47 Reviewed 06/01/2012 12:00 AM THER/PROPH/DIAG INJ SC/IM [...] 07/10/2019 3:42 PM SCREEN DEPRESSION PERFORMED Reviewed 02/03/2010 12:00 AM CYTOPATH C/V MANUAL Reviewed 02/03/2010 12:00 AM SPECIMEN HANDLING OFFICE-LAB Reviewed 02/03/2010 12:00 AM MAMMOGRAM BOTH BREASTS Reviewed 04/16/2010 12:00 AM BIOPSY OF UTERUS LINING Reviewed 04/16/2010 12:00 AM SPECIMEN HANDLING OFFICE-LAB Reviewed 04/16/2010 12:00 AM CYTOPATH TBS C/V MANUAL Reviewed 03/06/2014 12:00 AM THER/PROPH/DIAG INJ SC/IM Reviewed 03/06/2014 12:00 AM Depo-Medrol 80 mg NDC#[address]-42 Revi ewed 03/06/2014 12:00 AM Decadron, Per 1 Mg NDC# [address]-45 Re viewed 06/04/2014 12:00 AM THER/PROPH/DIAG INJ SC/IM Reviewed 06/04/2014 12:00 AM Depo-Medrol 80 mg NDC#[address]-10 Revi ewed 06/04/2014 12:00 AM Decadron, Per 1 Mg NDC# [address]-92 Re viewed 10/16/2014 12:00 AM THER/PROPH/DIAG INJ SC/IM Reviewed 10/16/2014 12:00 AM Decadron 8 mg NDC# [address]-68 Reviewe d 10/16/2014 12:00 AM Depo-Medrol 80 mg [facility]#[address]-23 Revi ewed 10/23/2014 12:00 AM RADEX SPINE [...] 108 eGFR 89 eGFR AA* >60 mL/min/1.73 [id number] 29 IU/LLIPASE 20 03/28/2018 8:30 AM Class Description COMMENT D0 01-IgE D pteronyssinus 6.54 D002- IgE D farinae 3.24 U841-SeL Cat Dander 0.16 U699-RvL Dog Dander 0.10 K998-HmQ [place] Grass <0.10 P492-WdY Bluegrass,[facility] <0.10 F744-IsP Immanuel Grass <0.10 Q011-OoK Cockroach,Martiniquais 0.18 C663-TxB Penicilliumchrysogen <0.10 M002- IgE Cladosporiumherbarum <0.10 Q817-FdT Aspergillusfumigatus <0.10 S362-VjF Mucor racemosus <0.10 A582-VnU Alternariaalternata 1.49 H585-HcH Stemphyliumherbarum <0.10 A686-PcT Maple/[place] <0.10 O873-SnG [place], White <0.10 D662-UfT Elm, Martiniquais <0.10 T281-KgP [place] <0.10 P533-MaW Magnus, White 0.11 X491-TtY Maple LeafSycamore <0.10 N783-AmF White [place] <0.10 Y327-OeL Ragweed, Short 23.10 P780-WvC [place] 1.43 S576-YgQ Plantain,Pashto 0.11 W011- IgE Thistle, Algerian <0.10 X353-IuC Pigweed, Common <0.10 W802-RlA Sheep [place] <0.10 Class Description COMMENT W763-IpV Milk <0.10 N934-DhK Wheat <0.10 F008- IgE [place] <0.10 G473-NdV Peanut <0.10 I336-QmO Soybean <0.10 J520-BcV Pork <0.10 A907-FwA Beef 0.25 QI48-MeZ Food Mix(Seafoods) Negative L835-ZhC Egg, Whole <0.10 A043-BbV Chocolate/[place] <0.10 04/15/2018 12:42 PM Falls in last [...] Vis Given Vis Pub CVX Tdap 03/07/2015 [employer] SKB BOOSTRIX H9P57 Intramuscula r Left Deltoid [...] cy Group Number Start Date BCBS Bcbs [facility] [id number] N/ A [place] Medical [facility] [id number] Friday, 2008 BCBS [place]cbs Of [place] [id number] [facility] [id number] 2 December [facility] [id number] Wednesday, [address] [facility] Med Occupational Medicine [id number] Friday, January 27, 2012 BCBS [place]bs [place] [id number] We April 18, 2014 [employer] [id number] N/A USD 506 [facility] [id number] N/A BCBS [facility] [id number] We February 27, 2015 [facility] [id number] N/ A History of Encounters Visit Date [...] A PRN 08/24/2018 Office visit Amna Marion TABLE GAMES SUPERVISOR 08/01/2018 Office visit Amna Marion TABLE GAMES SUPERVISOR 07/27/2018 Office visit Sondra Pinto A PRN 07/22/2018 Office visit Christal Gamez APR N 07/22/2018 Hospital Sharon Noriega MD 05/05/2018 Office visit Christal Gamze APR N 03/28/2018 Office visit Sondra Pinto [...] Iniguez NP 03/28/2016 Office visit Yoli Slade TABLE GAMES SUPERVISOR 12/05/2015 Office visit Mica Sloan DO 04/08/2015 Office visit Daniel Acosta APR N 03/07/2015 Office visit Daniel Acosta APR N 10/23/2014 Office visit Reggie Foy MD 10/16/2014 Office visit Reggie Foy MD 06/07/2014 Office visit Reggie Foy MD 06/04/2014 Office visit Daniel Acosta APR N 05/22/2014 Voided Reggie Foy MD 03/06/2014 Office visit Daniel Acosta APR N 08/01/2013 Office visit Lia PowersSally pfeiffer TABLE GAMES SUPERVISOR 06/15/2012 Office visit Danilo Cantu MD 06/01/2012 Office visit Amna Marion TABLE GAMES SUPERVISOR 01/27/2012 Office visit Amna Marion TABLE GAMES SUPERVISOR 08/26/2011 Office visit Reggie Foy MD 05/08/2011 Office visit Amna Marion TABLE GAMES SUPERVISOR 04/24/2011 Office visit Danilo Cantu MD 01/30/2011 Office visit Amna Marion TABLE GAMES SUPERVISOR 09/30/2010 Office visit Reggie Foy MD 04/16/2010 Office visit Danilo Cantu MD 02/03/2010 Office visit Danilo Cantu MD 07/17/2009 Office visit Ivania MONDRAGON 01/28/2009 Nurse visit Reggie Foy MD 01/10/2009 Office visit Reggie Foy MD 12/26/2008 Office visit Alexys Schultz MD
--- OUTSIDE RECORDS SUMMARY | 2019-09-12 09:49 | XMS REPORT ---
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.] Reviewed 03/06/2014 12:00 AM Depo-Medrol 80 mg NDC#[address]-67 Revi ewed 03/06/2014 12:00 AM Decadron, Per 1 Mg NDC# [address]-62 Re viewed 06/04/2014 12:00 AM THER/PROPH/DIAG INJ SC/IM Reviewed 06/04/2014 12:00 AM Depo-Medrol 80 mg NDC#[address]-42 Revi ewed 06/04/2014 12:00 AM Decadron, Per 1 Mg NDC# [address]-32 Re viewed 10/16/2014 12:00 AM THER/PROPH/DIAG INJ SC/IM Reviewed 10/16/2014 12:00 AM Decadron 8 mg NDC# [address]-78 Reviewe d 10/16/2014 12:00 AM Depo-Medrol 80 mg NDC#[address]-37 Revi ewed 10/23/2014 12:00 AM RADEX SPINE [...] 108 eGFR 89 eGFR AA* >60 mL/min/1.73 [id number] 29 IU/LLIPASE 20 03/28/2018 8:30 AM Class Description COMMENT D0 01-IgE D pteronyssinus 6.54 D002- IgE D farinae 3.24 Q553-NcT Cat Dander 0.16 I672-UrP Dog Dander 0.10 D039-EsT [place] Grass <0.10 Z385-IlP Blue[place] <0.10 J342-VnI Immanuel Grass <0.10 U728-YtV Cockroach,Lao 0.18 O490-TlD Penicilliumchrysogen <0.10 M002- IgE Cladosporiumherbarum <0.10 P352-WnP Aspergillusfumigatus <0.10 B552-ImX Mucor racemosus <0.10 Y672-DwQ Alternariaalternata 1.49 F721-AxV Stemphyliumherbarum <0.10 H302-EjV Maple/[place] <0.10 F027-YlA [place], White <0.10 B730-StH Elm, Lao <0.10 G540-OlQ [place] <0.10 A037-PxG Magnus, White 0.11 L198-YxS Maple LeafSycamore <0.10 T780-BoF [place] <0.10 U584-GsD Ragweed, Short 23.10 Y538-QjX [place] 1.43 A360-QiF Plantain,Norwegian 0.11 W011- IgE Thistle, Nauruan <0.10 L810-EhZ Pigweed, Common <0.10 A136-LkY Sheep [place] <0.10 Class Description COMMENT J351-WaI Milk <0.10 R048-HzI Wheat <0.10 F008- IgE [place] <0.10 T571-WuM Peanut <0.10 B229-QmN Soybean <0.10 Y853-AhZ Pork <0.10 Q431-CmD Beef 0.25 WK64-DoB Food Mix(Seafoods) Negative F215-TbL Egg, Whole <0.10 J458-BzN Chocolate/[place] <0.10 04/15/2018 12:42 PM Falls in last [...] Vis Given Vis Pub CVX Tdap 03/07/2015 GlaxoSm[employer] SKB BOOSTRIX H9P57 Intramuscula r Left Deltoid [...] Group Number Start Date BCBS Bcbs Of [place] [id number] N/ A [place] Medical Assistance [facility] [id number] Friday, 2008 BCBS [place]bs [place] [id number] 2008 [facility] [id number] 2 December [facility] [id number] Wednesday, 2010 [facility] Occupational Medicine [id number] Friday, January 27, 2012 BCBS [place]bs [place] [id number] We April 18, 2014 [facility] [id number] N/A USD 506 - [facility] USD 506 [id number] N/A BCBS [place] [id number] We February 27, 2015 BCBS [employer]bs [place] [id number] N/ A History of Encounters Visit Date Visit Type Provider 06/19/2019 Office visit Sondra Houser PRN 06/07/2019 Office visit Sondra Houser PRN 06/05/2019 Office visit Sondra Houser PRN 06/03/2019 [facility] Sharon Noriega MD 04/18/2019 Office visit Sondra Houser PRN 02/08/2019 Office visit Sondra Houser PRN 01/30/2019 Office visit Sondra Houser PRN 08/24/2018 Office visit Amna Marion DIGITAL FORENSIC EXAMINER 08/01/2018 Office visit Amna Marion DIGITAL FORENSIC EXAMINER 07/27/2018 Office visit Sondra Pinto A PRN 07/22/2018 Office visit Christal Gamez APR N 07/22/2018 [facility] Sharon Noriega MD 05/05/2018 Office visit Christal [...] Iniguez NP 03/28/2016 Office visit Yoli Slade DIGITAL FORENSIC EXAMINER 12/05/2015 Office visit Mica Sloan DO 04/08/2015 Office visit Daniel Acosta APR N 03/07/2015 Office visit Daniel Acosta APR N 10/23/2014 Office visit Reggie Foy MD 10/16/2014 Office visit Reggie Foy MD 06/07/2014 Office visit Reggie Foy MD 06/04/2014 Office visit Daniel Acosta APR N 05/22/2014 Voided Reggie Foy MD 03/06/2014 Office visit Daniel Acosta APR N 08/01/2013 Office visit Lia pfeiffer DIGITAL FORENSIC EXAMINER 06/15/2012 Office visit Danilo Cantu MD 06/01/2012 Office visit Amna Marion DIGITAL FORENSIC EXAMINER 01/27/2012 Office visit Amna Marion DIGITAL FORENSIC EXAMINER 08/26/2011 Office visit Reggie Foy MD 05/08/2011 Office visit Amna Marion DIGITAL FORENSIC EXAMINER 04/24/2011 Office visit Danilo Cantu MD 01/30/2011 Office visit Amna Marion DIGITAL FORENSIC EXAMINER 09/30/2010 Office visit Reggie Foy MD 04/16/2010 Office visit Danilo Cantu MD 02/03/2010 Office visit Danilo Cantu MD 07/17/2009 Office visit Ivania MONDRAGON 01/28/2009 Nurse visit Reggie Foy MD 01/10/2009 Office visit Reggie Foy MD 12/26/2008 Office visit Alexys Schultz MD
--- OUTSIDE RECORDS SUMMARY | 2019-09-12 09:50 | XMS REPORT ---
Author Author Ana Pinto [facility] Physicians oup Address [address] [place], [place] [address] Care Team Providers Care Microfilm Operator Name Role Phone Sondra Pinto PCP Sondra Pinto PreferredProvider Allergies and Adverse Reactions Name Reaction Notes PENICILLINS hives Bactrim DS Plan of Treatment Planned Activity Comments Planned Date Planned Time Plan/Goal US PELVIC NON-OB 06/07/2019 12:00 AM Medications Active Name Start Date Estimated Completion [...] 28 days Too expensive Microgestin FE 05/08 (28) 1 mg-20 mcg (21)/75 mg (7) oral [...] cyclobenzaprine 10 mg oral tablet 05/04/2017 05/25/2017 1/2 to 1 tablet at bedtime for muscle [...] HC BMI BSA BMI Percentile O2 Sat(%) 06/05/2019 10:05:00 AM 110 mm[Hg] 70 mm[Hg] [...] Comments denies smoking denies alcohol use 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 Alcohol Never Tobacco Never smoker History of [...] Reviewed 05/08/2011 12:00 AM Decadron 1 mg ND#[id number] (Eva) Reviewed 05/08/2011 12:00 AM Depo-Medrol 80 mg NDC#[id number]-Tixllo te Reviewed 12/11/2015 12:00 AM Screening mammography, [...] 12:00 AM Phenergan, Up to 50 Mg [facility]#4032-9759-45 Reviewed 06/01/2012 12:00 AM Toradol 60 Mg [facility]#5037-2220-38 Reviewed 06/01/2012 12:00 AM THER/PROPH/DIAG INJ SC/IM [...] 06/07/2019 12:00 AM THER/PROPH/DIAG INJ SC/IM Reviewed 02/03/2010 12:00 AM CYTOPATH C/V MANUAL Reviewed 02/03/2010 12:00 AM SPECIMEN HANDLING OFFICE-LAB Reviewed 02/03/2010 12:00 AM MAMMOGRAM BOTH BREASTS Reviewed 04/16/2010 12:00 AM BIOPSY OF UTERUS LINING Reviewed 04/16/2010 12:00 AM SPECIMEN HANDLING OFFICE-LAB Reviewed 04/16/2010 12:00 AM CYTOPATH TBS C/V MANUAL Reviewed 03/06/2014 12:00 AM THER/PROPH/DIAG INJ SC/IM Reviewed 03/06/2014 12:00 AM Depo-Medrol 80 mg NDC#[address]-76 Revi ewed 03/06/2014 12:00 AM Decadron, Per 1 Mg NDC# [address]-54 Re viewed 06/04/2014 12:00 AM THER/PROPH/DIAG INJ SC/IM Reviewed 06/04/2014 12:00 AM Depo-Medrol 80 mg NDC#[address]-83 Revi ewed 06/04/2014 12:00 AM Decadron, Per 1 Mg NDC# [address]-50 Re viewed 10/16/2014 12:00 AM THER/PROPH/DIAG INJ SC/IM Reviewed 10/16/2014 12:00 AM Decadron 8 mg NDC# [address]-22 Reviewe d 10/16/2014 12:00 AM Depo-Medrol 80 mg NDC#[address]-74 Revi ewed 10/23/2014 12:00 AM RADEX SPINE [...] 108 eGFR 89 eGFR AA* >60 mL/min/1.73 [id number] 29 IU/LLIPASE 20 03/28/2018 8:30 AM Class Description COMMENT D0 01-IgE D pteronyssinus 6.54 D002- IgE D farinae 3.24 J358-DjM Cat Dander 0.16 K481-FdT Dog Dander 0.10 S125-AfO [place] Grass <0.10 B899-KeL Bluegrass,[place] <0.10 C622-QvV Immanuel Grass <0.10 J126-OhY Cockroach,Portuguese 0.18 B651-GlX Penicilliumchrysogen <0.10 M002- IgE Cladosporiumherbarum <0.10 M478-KoZ Aspergillusfumigatus <0.10 Z139-JcH Mucor racemosus <0.10 C740-WcB Alternariaalternata 1.49 X424-LkG Stemphyliumherbarum <0.10 X439-RfN Maple/[place] <0.10 X665-DaM [place], White <0.10 B551-ArS Elm, Portuguese <0.10 P136-WxF [place] <0.10 R367-RpW Magnus, White 0.11 O607-HkO Maple LeafSycamore <0.10 K900-MbC [place] <0.10 B040-SxY Ragweed, Short 23.10 T504-TvL [place] 1.43 N163-WlQ Plantain,Danish 0.11 W011- IgE Thistle, Cambodian <0.10 J461-JcE Pigweed, Common <0.10 D346-PbX Sheep [place] <0.10 Class Description COMMENT A614-YtC Milk <0.10 P168-VkD Wheat <0.10 F008- IgE [place] <0.10 A238-OsK Peanut <0.10 G857-ZeA Soybean <0.10 U880-EuZ Pork <0.10 G167-JlG Beef 0.25 FE22-NwI Food Mix(Seafoods) Negative F753-DtD Egg, Whole <0.10 E408-LaS Chocolate/[place] <0.10 04/15/2018 12:42 PM Falls in last [...] Vis Given Vis Pub CVX Tdap 03/07/2015 [employer] SKB BOOSTRIX H9P57 Intramuscula r Left Deltoid [...] screening mammogram for breast cancer Dec 04 016 10:34AM Routine gynecological examination Dec 05 [...] 7:58AM Acute frontal sinusitis, recurrence not specified Jitendra 17 201 9 2:06PM Right arm pain Jul 22 2018 3:41PM Right arm numbness Jul 22 2018 3:41PM Non-seasonal allergic rhinitis, unspecified trigger Jul 27 019 2:20PM Acute bronchitis, unspecified organism Jul [...] other enabling machines and devices Apr 18 9 3:17PM [place] (nonalcoholic steatohepatitis) Apr 18 [...] 2019 12:17PM Amenorrhea Jun 07 2019 12:17PM Payers Insurance Name Company Name Plan Name Plan Number Policy Number Henry cy Group Number Start Date BCBS B[place]bs Of [place] [id number] N/ A [place] Medical Assistance Program [facility] Anyi Velasquez [id number] Friday, 2008 BCBS [employer] [place] [id number] 2008 [facility] [id number] 2 December [facility] [id number] Wednesday, 2010 [facility] Occupational Medicine [id number] Friday, January 27, 2012 BCBS Bcbs [facility] [id number] We April 18, 2014 [place] [employer] Work [employer] [facility] [id number] N/A USD 506 - [facility] USD 506 [id number] N/A BCBS Bcbs [facility] [id number] We dnFebruary 27, 2015 BCBS Bcbs [facility] [id number] N/ A History of Encounters Visit Date Visit Type Provider 06/07/2019 Office visit Sondra Mianatorie Mik PRN 06/05/2019 Office visit Sondra Pinto A PRN 04/18/2019 Office visit Sondra Pinto A PRN 02/08/2019 Office visit Sondra Pinto A PRN 01/30/2019 Office visit Sondra Pinto A PRN 08/24/2018 Office visit Amna Marion GRADE RECORDER 08/01/2018 Office visit Amna Marion GRADE RECORDER 07/27/2018 Office visit Sondra Pinto A PRN 07/22/2018 Office visit Christal Gamez APR N 07/22/2018 [facility] Sharon Noriega MD 05/05/2018 Office visit Christal [...] Iniguez NP 03/28/2016 Office visit Yoli Slade GRADE RECORDER 12/05/2015 Office visit Mica Sloan DO 04/08/2015 Office visit Daniel Acosta APR N 03/07/2015 Office visit Daniel Vizcainoran APR N 10/23/2014 Office visit Reggie Foy MD 10/16/2014 Office visit Reggie Foy MD 06/07/2014 Office visit Reggie Foy MD 06/04/2014 Office visit Daniel Acosta APR N 05/22/2014 Voided Reggie Foy MD 03/06/2014 Office visit Daniel Acosta APR N 08/01/2013 Office visit Lia pfeiffer GRADE RECORDER 06/15/2012 Office visit Danilo Cantu MD 06/01/2012 Office visit Amna Marion GRADE RECORDER 01/27/2012 Office visit Amna Marion GRADE RECORDER 08/26/2011 Office visit Reggie Foy MD 05/08/2011 Office visit Amna Marion GRADE RECORDER 04/24/2011 Office visit Danilo Cantu MD 01/30/2011 Office visit Amna Marion GRADE RECORDER 09/30/2010 Office visit Reggie Foy MD 04/16/2010 Office visit Danilo Cantu MD 02/03/2010 Office visit Danilo Cantu MD 07/17/2009 Office visit Ivania MONDRAGON 01/28/2009 Nurse visit Reggie Foy MD 01/10/2009 Office visit Reggie Foy MD 12/26/2008 Office visit Alexys Schultz MD
--- OUTSIDE RECORDS SUMMARY | 2019-09-12 09:50 | XMS REPORT ---
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 Alcohol Never Tobacco Never smoker History of [...] Reviewed 05/08/2011 12:00 AM Decadron 1 mg [facility]#[id number] (Eva) Reviewed 05/08/2011 12:00 AM Depo-Medrol 80 mg NDC#[id number]-Grjlok te Reviewed 12/11/2015 12:00 AM Screening mammography, [...] 12:00 AM Phenergan, Up to 50 Mg [facility]#9854-7830-06 Reviewed 06/01/2012 12:00 AM Toradol 60 Mg [facility]#4301-9614-66 Reviewed 06/01/2012 12:00 AM THER/PROPH/DIAG INJ SC/IM [...] 12:[address] ABD & PELV W/CONTRAST Returned 06/05/2019 8:24 PM FALL RISK ASSESSMENT DOCD [...] Reviewed 03/06/2014 12:00 AM Depo-Medrol 80 mg NDC#[address]-51 Revi ewed 03/06/2014 12:00 AM Decadron, Per 1 Mg NDC# [address]-40 Re viewed 06/04/2014 12:00 AM THER/PROPH/DIAG INJ SC/IM Reviewed 06/04/2014 12:00 AM Depo-Medrol 80 mg NDC#[address]-06 Revi ewed 06/04/2014 12:00 AM Decadron, Per 1 Mg NDC# [address]-92 Re viewed 10/16/2014 12:00 AM THER/PROPH/DIAG INJ SC/IM Reviewed 10/16/2014 12:00 AM Decadron 8 mg NDC# [address]-13 Reviewe d 10/16/2014 12:00 AM Depo-Medrol 80 mg NDC#[address]-67 Revi ewed 10/23/2014 12:00 AM RADEX SPINE [...] 108 eGFR 89 eGFR AA* >60 mL/min/1.73 [id number] 29 IU/LLIPASE 20 03/28/2018 8:30 AM Class Description COMMENT D0 01-IgE D pteronyssinus 6.54 D002- IgE D farinae 3.24 J934-RvT Cat Dander 0.16 A758-WmM Dog Dander 0.10 H056-MkE [place] Grass <0.10 X304-SaR Bluegrass,[place] <0.10 R685-NbY Immanuel Grass <0.10 H089-LqL Cockroach,Japanese 0.18 D369-IhS Penicilliumchrysogen <0.10 M002- IgE Cladosporiumherbarum <0.10 S512-DuZ Aspergillusfumigatus <0.10 Y142-CjS Mucor racemosus <0.10 N077-WpS Alternariaalternata 1.49 V983-KeZ Stemphyliumherbarum <0.10 M944-KsH Maple/[place] <0.10 G943-BaY [place], White <0.10 X683-MyZ Elm, Japanese <0.10 W367-IsO [place] <0.10 R541-BgY Magnus, White 0.11 M283-QbU Maple LeafSycamore <0.10 U765-LiH White [place] <0.10 I432-QxR Ragweed, Short 23.10 T937-YkJ [place] 1.43 D950-RqL Plantain,French 0.11 W011- IgE Thistle, German <0.10 A661-MbA Pigweed, Common <0.10 Q401-KeD Sheep [place] <0.10 Class Description COMMENT F060-UcI Milk <0.10 P206-QgG Wheat <0.10 F008- IgE [place] <0.10 R111-UtR Peanut <0.10 X737-YoL Soybean <0.10 R330-VlG Pork <0.10 E564-PjN Beef 0.25 LF87-JaQ Food Mix(Seafoods) Negative Y841-ZiQ Egg, Whole <0.10 O357-MlZ Chocolate/[place] <0.10 04/15/2018 12:42 PM Falls in last [...] Vis Given Vis Pub CVX Tdap 03/07/2015 [employer] SKB BOOSTRIX H9P57 Intramuscula r Left [...] Group Number Start Date BCBS [place]bs [place] [id number] N/ A [place] Medical Assistance Program [facility] Anyi Velasquez [id number] Friday, 2008 BCBS [place] [id number] 2008 [facility] [id number] 2 December [facility] [id number] Wednesday, 2010 [facility] Occupational Medicine [id number] Friday, January 27, 2012 BCBS Bcbs [facility] [id number] We April 18, 2014 [place] [employer] Work [employer] [facility] [id number] N/A USD 506 - [facility] USD 506 [id number] N/A BCBS Bcbs [facility] [id number] We dnFebruary 27, 2015 BCBS Bcbs [facility] [id number] N/ A History of Encounters Visit Date Visit Type Provider 06/07/2019 Office visit Sondra Mianatorie Mik PRN 06/05/2019 Office visit Sondra Pinto A PRN 04/18/2019 Office visit Sondra Pinto A PRN 02/08/2019 Office visit Sondra Pinto A PRN 01/30/2019 Office visit Sondra Pinto A PRN 08/24/2018 Office visit Amna Marion STATION MECHANIC 08/01/2018 Office visit Amna Marion STATION MECHANIC 07/27/2018 Office visit Sondra Pinto A PRN 07/22/2018 Office visit Christal Gamez APR N 07/22/2018 [facility] Sharon Noriega MD 05/05/2018 Office [...] Iniguez NP 03/28/2016 Office visit Yoli Slade STATION MECHANIC 12/05/2015 Office visit Mica Sloan DO 04/08/2015 Office visit Daniel Acosta APR N 03/07/2015 Office visit Daniel Vizcainoran APR N 10/23/2014 Office visit Reggie Foy MD 10/16/2014 Office visit Reggie Foy MD 06/07/2014 Office visit Reggie Foy MD 06/04/2014 Office visit Daniel Acosta APR N 05/22/2014 Voided Reggie Foy MD 03/06/2014 Office visit Daniel Acosta APR N 08/01/2013 Office visit Lia pfeiffer STATION MECHANIC 06/15/2012 Office visit Danilo Cantu MD 06/01/2012 Office visit Amna Marion STATION MECHANIC 01/27/2012 Office visit Amna Marion STATION MECHANIC 08/26/2011 Office visit Reggie Foy MD 05/08/2011 Office visit Amna Marion STATION MECHANIC 04/24/2011 Office visit Danilo Cantu MD 01/30/2011 Office visit Amna Marion STATION MECHANIC 09/30/2010 Office visit Reggie Foy MD 04/16/2010 Office visit Danilo Cantu MD 02/03/2010 Office visit Danilo Cantu MD 07/17/2009 Office visit Ivania MONDRAGON 01/28/2009 Nurse visit Reggie Foy MD 01/10/2009 Office visit Reggie Foy MD 12/26/2008 Office visit Alexys Schultz MD
--- OUTSIDE RECORDS SUMMARY | 2019-09-12 09:51 | XMS REPORT ---
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#[id number] (Eva) Reviewed 05/08/2011 12:00 AM Depo-Medrol 80 mg NDC#[id number]-Fqeccp te Reviewed 12/11/2015 12:00 AM Screening mammography, [...] AM Phenergan, Up to [address] [facility]#4577-1024-26 Reviewed 06/01/2012 12:00 AM Toradol [address] [facility]#0466-6365-15 Reviewed 06/01/2012 12:00 AM THER/PROPH/DIAG INJ SC/IM [...] 04/18/2019 3:47 PM SCREEN DEPRESSION PERFORMED Reviewed 02/03/2010 12:00 AM CYTOPATH C/V MANUAL Reviewed 02/03/2010 12:00 AM SPECIMEN HANDLING OFFICE-LAB Reviewed 02/03/2010 12:00 AM MAMMOGRAM BOTH BREASTS Reviewed 04/16/2010 12:00 AM BIOPSY OF UTERUS LINING Reviewed 04/16/2010 12:00 AM SPECIMEN HANDLING OFFICE-LAB Reviewed 04/16/2010 12:00 AM CYTOPATH TBS C/V MANUAL Reviewed 03/06/2014 12:00 AM THER/PROPH/DIAG INJ SC/IM Reviewed 03/06/2014 12:00 AM Depo-Medrol 80 mg NDC#[address]-93 Revi ewed 03/06/2014 12:00 AM Decadron, Per [address] [facility]# [address]-08 Re viewed 06/04/2014 12:00 AM THER/PROPH/DIAG INJ SC/IM Reviewed 06/04/2014 12:00 AM Depo-Medrol 80 mg NDC#[address]-32 Revi ewed 06/04/2014 12:00 AM Decadron, Per [address] [facility]# [address]-49 Re viewed 10/16/2014 12:00 AM THER/PROPH/DIAG INJ SC/IM Reviewed 10/16/2014 12:00 AM Decadron [address] [facility]# [address]-74 Reviewe d 10/16/2014 12:00 AM Depo-Medrol 80 mg NDC#[address]-42 Revi ewed 10/23/2014 12:00 AM RADEX SPINE [...] 108 eGFR 89 eGFR AA* >60 mL/min/1.73 [id number] 29 IU/LLIPASE 20 03/28/2018 8:30 AM Class Description COMMENT D0 01-IgE D pteronyssinus 6.54 D002- IgE D farinae 3.24 O210-GsH Cat Dander 0.16 F269-QsJ Dog Dander 0.10 X860-IxS [place] Grass <0.10 L317-SjA Bluegrass,[place] <0.10 T578-HsN Immanuel Grass <0.10 B189-VdX Cockroach,Portuguese 0.18 H090-MrK Penicilliumchrysogen <0.10 M002- IgE Cladosporiumherbarum <0.10 T969-KxM Aspergillusfumigatus <0.10 U876-TuW Mucor racemosus <0.10 Q812-YdV Alternariaalternata 1.49 H848-YqF Stemphyliumherbarum <0.10 Q330-FkJ Maple/[place] <0.10 L076-VsH [place], White <0.10 B157-ZwL Elm, Portuguese <0.10 J225-SsX [place] <0.10 F664-VfB Magnus, White 0.11 O268-UmT Maple LeafSycamore <0.10 O249-KcV [place] <0.10 C184-WyR Ragweed, Short 23.10 K955-YnF [place] 1.43 S803-YmQ Plantain,Turkish 0.11 W011- IgE Thistle, Bulgarian <0.10 D743-ApY Pigweed, Common <0.10 F822-EdL Sheep [place] <0.10 Class Description COMMENT O552-GrI Milk <0.10 J753-JfX Wheat <0.10 F008- IgE [place] <0.10 B052-GcE Peanut <0.10 I353-RqW Soybean <0.10 J586-KvJ Pork <0.10 R587-XiM Beef 0.25 YP47-XmN Food Mix(Seafoods) Negative H085-XjM Egg, Whole <0.10 W588-YhC Chocolate/[place] <0.10 04/15/2018 12:42 PM Falls in last [...] Vis Given Vis Pub CVX Tdap 03/07/2015 [employer] SKB BOOSTRIX H9P57 Intramuscula r Left Deltoid [...] [place] (nonalcoholic steatohepatitis) Apr 18 2019 3:17PM Payers Insurance Name Company Name Plan Name Plan Number Policy Number Henry cy Group Number Start Date BCBS [place]bs [place] [id number] N/ A [place] Medical Assistance [facility] [id number] Friday, 2008 [employer] [place] [id number] 2008 [facility] [id number] 2 December [facility] [id number] Wednesday, 2010 [facility] Occupational Medicine [id number] Friday, January 27, 2012 BCBS [place] [place] [id number] We April 18, 2014 [facility] [id number] N/A USD 506 - [facility] USD 506 [id number] N/A BCBS [employer] [place] [id number] We February 27, 2015 [employer]BS [employer] [place] [id number] N/ A History of Encounters Visit Date Visit Type Provider 04/18/2019 Office visit Sondra Houser PRN 02/08/2019 Office visit Sondra Houser PRN 01/30/2019 Office visit Sondra Houser PRN 08/24/2018 Office visit Amna Marion QUARTZ CUTTER 08/01/2018 Office visit Amna Marion QUARTZ CUTTER 07/27/2018 Office visit Sondra Houser PRN 07/22/2018 Office visit Christal Gamez APR N 07/22/2018 [facility] Sharon Noriega MD 05/05/2018 Office visit Christal Gamez APR N 03/28/2018 Office visit Sondra Houser PRN 02/22/2018 Office visit Sondra Houser PRN 12/23/2017 Office visit Sondra Pinto A PRN 06/24/2017 Laboratory Sondra Pinto A PRN 06/07/2017 Office visit Sondra Pinto A PRN 05/25/2017 Office visit Sondra Pinto A PRN 05/04/2017 Office visit Sondra Pinto A PRN 04/21/2017 Office visit Sondra Pinto A PRN 05/10/2016 Office visit Alli Iniguez GEODETIC SURVEYOR TECHNOLOGIST 03/28/2016 Office visit Yoli Berlin QUARTZ CUTTER 12/05/2015 Office visit Mica Luther DO 04/08/2015 Office visit Daniel Vizcainoran APR N 03/07/2015 Office visit Daniel Acosta APR N 10/23/2014 Office visit Reggie Foy MD 10/16/2014 Office visit Reggie Foy MD 06/07/2014 Office visit Reggie Foy MD 06/04/2014 Office visit Daniel Acosta APR N 05/22/2014 Voided Reggie Foy MD 03/06/2014 Office visit Daniel Vizcainoran APR N 08/01/2013 Office visit Lia Franks n QUARTZ CUTTER 06/15/2012 Office visit Danilo Cantu MD 06/01/2012 Office visit Amna Marion QUARTZ CUTTER 01/27/2012 Office visit Amna Marion QUARTZ CUTTER 08/26/2011 Office visit Reggie Foy MD 05/08/2011 Office visit Amna Marion QUARTZ CUTTER 04/24/2011 Office visit Danilo Cantu MD 01/30/2011 Office visit Amna Marion QUARTZ CUTTER 09/30/2010 Office visit Reggie Foy MD 04/16/2010 Office visit Danilo Cantu MD 02/03/2010 Office visit Danilo Cantu MD 07/17/2009 Office visit Ivania MONDRAGON 01/28/2009 Nurse visit Reggie Foy MD 01/10/2009 Office visit Reggie Foy MD 12/26/2008 Office visit Alexys Schultz MD
--- OUTSIDE RECORDS SUMMARY | 2019-09-12 09:51 | XMS REPORT ---
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 Alcohol Never Tobacco Never smoker History of [...] Reviewed 05/08/2011 12:00 AM Decadron 1 mg NDC#[id number] (Eva) Reviewed 05/08/2011 12:00 AM Depo-Medrol 80 mg NDC#[id number]-Qbfnjh te Reviewed 12/11/2015 12:00 AM Screening mammography, [...] 12:00 AM Phenergan, Up to 50 Mg [facility]#2639-2989-82 Reviewed 06/01/2012 12:00 AM Toradol 60 Mg [facility]#5740-6962-73 Reviewed 06/01/2012 12:00 AM THER/PROPH/DIAG INJ SC/IM [...] 3:47 PM SCREEN DEPRESSION PERFORMED Reviewed 06/05/2019 8:24 PM FALL RISK ASSESSMENT DOCD Reviewed 06/05/2019 8:24 PM SCREEN DEPRESSION PERFORMED Reviewed 02/03/2010 12:00 AM CYTOPATH C/V MANUAL Reviewed 02/03/2010 12:00 AM SPECIMEN HANDLING OFFICE-LAB Reviewed 02/03/2010 12:00 AM MAMMOGRAM BOTH BREASTS Reviewed 04/16/2010 12:00 AM BIOPSY OF UTERUS LINING Reviewed 04/16/2010 12:00 AM SPECIMEN HANDLING OFFICE-LAB Reviewed 04/16/2010 12:00 AM CYTOPATH TBS C/V MANUAL Reviewed 03/06/2014 12:00 AM THER/PROPH/DIAG INJ SC/IM Reviewed 03/06/2014 12:00 AM Depo-Medrol 80 mg NDC#[address]-19 Revi ewed 03/06/2014 12:00 AM Decadron, Per 1 Mg NDC# [address]-73 Re viewed 06/04/2014 12:00 AM THER/PROPH/DIAG INJ SC/IM Reviewed 06/04/2014 12:00 AM Depo-Medrol 80 mg NDC#[address]-30 Revi ewed 06/04/2014 12:00 AM Decadron, Per 1 Mg NDC# [address]-87 Re viewed 10/16/2014 12:00 AM THER/PROPH/DIAG INJ SC/IM Reviewed 10/16/2014 12:00 AM Decadron 8 mg NDC# [address]-92 Reviewe d 10/16/2014 12:00 AM Depo-Medrol 80 mg NDC#[address]-75 Revi ewed 10/23/2014 12:00 AM RADEX SPINE [...] 108 eGFR 89 eGFR AA* >60 mL/min/1.73 [id number] 29 IU/LLIPASE 20 03/28/2018 8:30 AM Class Description COMMENT D0 01-IgE D pteronyssinus 6.54 D002- IgE D farinae 3.24 N663-PmW Cat Dander 0.16 I382-JrC Dog Dander 0.10 Q351-NgD [place] Grass <0.10 R626-ZxG Blue[place] <0.10 Q274-ZvV Immanuel Grass <0.10 L307-LqS Cockroach,Eritrean 0.18 S346-VzD Penicilliumchrysogen <0.10 M002- IgE Cladosporiumherbarum <0.10 O400-WvT Aspergillusfumigatus <0.10 C877-VnV Mucor racemosus <0.10 V761-LrL Alternariaalternata 1.49 M102-YbX Stemphyliumherbarum <0.10 L153-EuV Maple/[place] <0.10 Y845-SeR [place], White <0.10 P015-QfS Elm, Eritrean <0.10 W211-YpT [place] <0.10 H630-BlI Magnus, White 0.11 M499-SmV Maple LeafSycamore <0.10 I534-MaG [place] <0.10 I792-TpG Ragweed, Short 23.10 P788-RkP [place] 1.43 O089-ApZ Plantain,Liberian 0.11 W011- IgE Thistle, Filipino <0.10 E941-MsV Pigweed, Common <0.10 V113-ZcP Sheep [place] <0.10 Class Description COMMENT K611-JpT Milk <0.10 D834-KuU Wheat <0.10 F008- IgE [place] <0.10 M090-EmC Peanut <0.10 I541-JbN Soybean <0.10 O937-MkV Pork <0.10 L944-UaH Beef 0.25 JZ63-UoN Food Mix(Seafoods) Negative R056-PsK Egg, Whole <0.10 E753-PrK Chocolate/[place] <0.10 04/15/2018 12:42 PM Falls in last [...] Vis Given Vis Pub CVX Tdap 03/07/2015 [employer] SKB BOOSTRIX [id number] Intramuscula r Left Deltoid [...] mammogram for breast cancer Dec 04 2 10:34AM Routine gynecological examination Dec 05 2015 [...] quadrant abdominal mass Jun 05 2019 10:07AM Payers Insurance Name Company Name Plan Name Plan Number Policy Number Henry cy Group Number Start Date BCBS [employer]bs [employer] [place] [id number] N/ A [place] [facility] [id number] Friday, 2008 BC[employer] [place] [id number] 2008 [facility] [id number] 2 December [facility] [id number] Wednesday, 2010 [facility] Occupational Medicine [id number] Friday, January 27, 2012 BCBS [employer] [place] [id number] April 18, 2014 [employer] [facility] Ge[employer]ama [id number] N/A [address] USD 506 [id number] N/A BCBS Bcbs [facility] [id number] We February 27, 2015 BC Bc Of [place] [id number] N/ A History of Encounters Visit Date Visit Type Provider 06/05/2019 Office visit Sondra Houser PRN 04/18/2019 Office visit Sondra Houser PRN 02/08/2019 Office visit Sondra Pinto A PRN 01/30/2019 Office visit Sondra Pinto A PRN 08/24/2018 Office visit Amna Marion SENIOR SHAREPOINT ARCHITECT 08/01/2018 Office visit Amna Marion SENIOR SHAREPOINT ARCHITECT 07/27/2018 Office visit Sondra Houser PRN 07/22/2018 Office visit Christal TinsleySally Franco APR N 07/22/2018 [facility] Sharon Noriega MD 05/05/2018 Office visit Christal Gamez APR N 03/28/2018 Office visit Sondra Houser PRN 02/22/2018 Office visit Sondra Houser PRN 12/23/2017 Office visit Sondra Houser PRN 06/24/2017 Laboratory Sondra Pinto A PRN 06/07/2017 Office visit Sondra Houser PRN 05/25/2017 Office visit Sondra Houser PRN 05/04/2017 Office visit Sondra Houser PRN 04/21/2017 Office visit Sondra Houser PRN 05/10/2016 Office visit Alli Iniguez NP 03/28/2016 Office visit Yoli Slade SENIOR SHAREPOINT ARCHITECT 12/05/2015 Office visit Mica Sloan DO 04/08/2015 Office visit Daniel Acosta APR N 03/07/2015 Office visit Daniel Acosta APR N 10/23/2014 Office visit Reggie Foy MD 10/16/2014 Office visit Reggie Foy MD 06/07/2014 Office visit Reggie Foy MD 06/04/2014 Office visit Daniel Acosta APR N 05/22/2014 Voided Reggie Foy MD 03/06/2014 Office visit Daniel Acosta APR N 08/01/2013 Office visit Lia Franks n SENIOR SHAREPOINT ARCHITECT 06/15/2012 Office visit Danilo Cantu MD 06/01/2012 Office visit Amna Marion SENIOR SHAREPOINT ARCHITECT 01/27/2012 Office visit Amna Marion SENIOR SHAREPOINT ARCHITECT 08/26/2011 Office visit Reggie Foy MD 05/08/2011 Office visit Amna Marion SENIOR SHAREPOINT ARCHITECT 04/24/2011 Office visit Danilo Cantu MD 01/30/2011 Office visit Amna Marion SENIOR SHAREPOINT ARCHITECT 09/30/2010 Office visit Reggie Foy MD 04/16/2010 Office visit Danilo Cantu MD 02/03/2010 Office visit Danilo Cantu MD 07/17/2009 Office visit Ivania MONDRAGON 01/28/2009 Nurse visit Reggie Foy MD 01/10/2009 Office visit Reggie Foy MD 12/26/2008 Office visit Alexys Schultz MD
[2019-09-12 09:52] LABS: BACTERIA,URINE TRACE /HPF; WBC,URINE 0-2 /HPF
--- OUTSIDE RECORDS SUMMARY | 2019-09-12 09:52 | XMS REPORT ---
Author Author Ana Marion Organization [facility] Address [address] [place], [place] [address] Care Team Providers Care Pipe Out Worker Name Role Phone Amna Marion PCP Sondra Pinto PreferredProvider Allergies and Adverse Reactions Name Reaction Notes PENICILLINS hives Bactrim DS Plan of Treatment Planned Activity Comments Planned Date Planned Time Plan/Goal INFLUENZA A & B 07/27/2018 12:00 AM Medications Active Name Start Date Estimated Completion Date SIG Co mments Skelaxin 800 mg oral tablet 07/22/2018 take 1 tablet (800 mg) by oral route 3 times per day as needed cyclobenzaprine 5 mg oral tablet 07/22/2018 take 1 tablet (5 mg) by oral route daily at HS PRN Cipro 500 mg oral tablet 07/27/2018 08/06/2018 take 1 tablet (500 mg) by oral route every 12 hours for 10 days Name Start Date Expiration [...] tab (20 MG) po x 4 days Discontinued Name Start Date Discontinued [...] daily in the evening for 30 days Problem List Description Status Onset Mixed hyperlipidemia Active 03/07/2018 [place] (nonalcoholic steatohepatitis) Active 02/17 Vital Signs Date Time BP-Sys(mm[Hg] BP-Sweta(mm[Hg]) HR(bpm) RR(rpm) Temp WT HT HC BMI BSA BMI Percentile O2 Sat(%) 08/01/2018 10:13:00 AM 138 mmHg 78 mmHg 104 bpm 18 rpm 241 lbs 66 in 38.898 kg/m 2.2562 m 96 % 07/27/2018 2:15:00 PM 148 mmHg 80 mmHg 112 bpm 18 rpm 99.5 F 246.375 lbs 66 in 39.77 kg/m2 2.28 m2 94 % 07/22/2018 3:38:00 PM 158 mmHg 96 mmHg 86 bpm 16 rpm 97.9 F 248.125 lbs 66 i n 40.048 kg/m 2.2893 m 98 % 05/05/2018 2:02:00 PM 160 mmHg 98 mmHg 105 bpm 18 rpm 98.8 F 244 lbs 66 in 39.38 kg/m2 2.27 m2 95 % 03/28/2018 7:56:00 AM 128 mmHg 86 mmHg 82 bpm 18 rpm 98.1 F 241.25 lbs 66 in 38.9384 kg/m 2.2574 m 97 % 02/22/2018 3:18:00 PM 128 mmHg 78 mmHg 68 bpm 18 rpm 98.1 F 239 lbs 66 in 38.58 kg/m2 2.25 m2 99 % 12/23/2017 2:00:00 PM 126 mmHg 78 mmHg 88 bpm 18 rpm 98.2 F 242.125 lbs 66 i n 39.0796 kg/m 2.2615 m 98 % 06/07/2017 9:00:00 AM 124 mmHg 74 mmHg 98 bpm 18 rpm 98.3 F 249 lbs 66 in 40.19 kg/m2 2.29 m2 97 % 05/25/2017 1:44:00 PM 132 mmHg 88 mmHg 104 bpm 18 rpm 98.4 F 257 lbs 66 in 41.4805 kg/m 2.3299 m 97 % 05/04/2017 3:44:00 PM 132 mmHg 88 mmHg 82 bpm 18 rpm 98.6 F 258 lbs 66 in 41.64 kg/m2 2.33 m2 97 % 04/21/2017 1:54:00 PM 122 mmHg 84 mmHg 90 bpm 18 rpm 98.8 F 255.375 lbs 66 i n 41.2182 kg/m 2.3225 m 97 % 05/10/2016 3:45:00 PM 138 mmHg 88 mmHg 99 bpm 18 rpm 96.8 F 255 lbs 66 in 41.16 kg/m2 2.32 m2 97 % 03/28/2016 1:16:00 PM 140 mmHg 84 mmHg 106 bpm 18 rpm 100.9 F 259 lbs 66 i n 41.8033 kg/m 2.339 m 97 % 12/05/2015 10:20:00 AM 152 mmHg 83 mmHg 87 bpm 98.8 F 259 lbs 66 in 41.80 kg/m2 2.34 m2 04/08/2015 9:19:00 AM 145 mmHg 90 mmHg 83 bpm 16 rpm 97.6 F 256 lbs 66 in 41.3191 kg/m 2.3254 m 97 % 03/07/2015 7:36:00 PM 144 mmHg 84 mmHg 79 bpm 18 rpm 98.6 F 257.125 lbs 66 in 41.50 kg/m2 2.33 m2 98 % 10/23/2014 9:09:00 AM 160 mmHg 78 mmHg 96 bpm 16 rpm 98.3 F 251 lbs 66 in 40.512 kg/m 2.3025 m 98 % 10/16/2014 10:36:00 AM 140 mmHg 90 mmHg 92 bpm 16 rpm 98.4 F 250 lbs 77 in 29.65 kg/m2 2.48 m2 97 % 06/07/2014 2:50:00 PM 162 mmHg 80 mmHg 78 bpm 18 rpm 98.8 F 252.5 lbs 66 in 40.7541 kg/m 2.3094 m 99 % 06/04/2014 2:21:00 PM 150 mmHg 80 mmHg 92 bpm 18 rpm 99.3 F 247 lbs 66 in 39.87 kg/m2 2.28 m2 96 % 05/22/2014 1:36:00 PM 152 mmHg 88 mmHg 64 bpm 16 rpm 98.1 F 250 lbs 66 in 40.3506 kg/m 2.298 m 03/06/2014 2:00:00 PM 140 mmHg 80 mmHg 104 bpm 18 rpm 98.2 F 240 lbs 66 in 38.74 kg/m2 2.25 m2 96 % 08/01/2013 8:50:00 AM 155 mmHg 81 mmHg 76 bpm 99.1 F 224 lbs 66 in 36.1542 kg/m 2.1752 m 06/15/2012 3:17:00 PM 133 mmHg 82 mmHg 94 bpm 97.9 F 243 lbs 66 in 39.22 kg/m2 2.27 m2 06/01/2012 11:27:00 AM 132 mmHg 64 mmHg 66 bpm 18 rpm 98 F 239 lbs 66 in 38.5752 kg/m 2.2468 m 01/27/2012 1:32:00 PM 124 mmHg 66 mmHg 66 bpm 18 rpm 97 F 236.25 lbs 66 i n 38.13 kg/m2 2.23 m2 08/26/2011 9:46:00 AM 120 mmHg 72 mmHg 68 bpm 18 rpm 98.4 F 228 lbs 66 in 36.7998 kg/m 2.1945 m 05/08/2011 9:44:00 AM 122 mmHg 64 mmHg 66 bpm 18 rpm 97.5 F 221 lbs 66 in 35.67 kg/m2 2.16 m2 04/24/2011 3:12:00 PM 133 mmHg 88 mmHg 92 bpm 98.8 F 220 lbs 66 in 35.5086 kg/m 2.1557 m 01/30/2011 3:00:00 PM 130 mmHg 60 mmHg 84 bpm 18 rpm 98.4 F 221 lbs 98 % 09/30/2010 10:08:00 AM 154 mmHg 84 mmHg 112 bpm 20 rpm 99.5 F 200 lbs 04/16/2010 9:28:00 AM 150 mmHg 90 mmHg 105 bpm 97.4 F 240 lbs 66 in 38.7366 kg/m 2.2515 m 02/03/2010 2:48:00 PM 145 mmHg 81 mmHg 85 bpm 97.9 F 238 lbs 66 in 38.41 kg/m2 2.24 m2 07/17/2009 9:09:00 AM 130 mmHg 78 mmHg 88 bpm 20 rpm 98.3 F 249 lbs 66 in 40.1892 kg/m 2.2934 m Social History Name Description Comments denies smoking denies alcohol use 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 Never Tobacco Never smoker History of [...] Reviewed 05/08/2011 12:00 AM Decadron 1 mg NDC#[id number] (Eva) Reviewed 05/08/2011 12:00 AM Depo-Medrol 80 mg NDC#84128705003-Umrzty te Reviewed 12/11/2015 12:00 AM Screening mammography, [...] 12:00 AM Phenergan, Up to 50 Mg [facility]#8651-6688-83 Reviewed 06/01/2012 12:00 AM Toradol 60 Mg [facility]#3011-2757-76 Reviewed 06/01/2012 12:00 AM THER/PROPH/DIAG INJ SC/IM [...] 12:00 AM US EXAM ABDOM COMPLETE Reviewed 07/22/2018 12:00 AM ELECTROCARDIOGRAM TRACING Returned 07/22/2018 12:00 AM COMPLETE CBC W/AUTO DIFF WBC Reviewed 07/22/2018 12:00 AM COMPREHEN METABOLIC PANEL Reviewed 07/22/2018 12:00 AM ASSAY OF TROPONIN QUANT Reviewed 07/22/2018 12:00 AM Norflex 60mg Injection Reviewed 07/27/2018 12:00 AM THER/PROPH/DIAG INJ SC/IM Reviewed 07/27/2018 12:00 AM Decadron 4mg Injection Reviewed 07/27/2018 12:00 AM Depo-Medrol 40mg Injection Reviewed 07/27/2018 2:47 PM INFLUENZA A/B AG EIA Reviewed 08/01/2018 12:00 AM RADEX SPINE CERVICAL 2 OR 3 VIEWS Return ed 08/01/2018 12:00 AM RADEX SPINE THORACIC 2 VIEWS Returned 08/01/2013 12:00 AM CYTOPATH C/V MANUAL Reviewed 08/01/2013 12:00 AM SPECIMEN HANDLING OFFICE-LAB Reviewed 08/01/2013 12:00 AM MAMMOGRAM BOTH BREASTS Reviewed 02/03/2010 12:00 AM CYTOPATH C/V MANUAL Reviewed 02/03/2010 12:00 AM SPECIMEN HANDLING OFFICE-LAB Reviewed 02/03/2010 12:00 AM MAMMOGRAM BOTH BREASTS Reviewed 04/16/2010 12:00 AM BIOPSY OF UTERUS LINING Reviewed 04/16/2010 12:00 AM SPECIMEN HANDLING OFFICE-LAB Reviewed 04/16/2010 12:00 AM CYTOPATH TBS C/V MANUAL Reviewed 03/06/2014 12:00 AM THER/PROPH/DIAG INJ SC/IM Reviewed 03/06/2014 12:00 AM Depo-Medrol 80 mg NDC#[address]-89 Revi ewed 03/06/2014 12:00 AM Decadron, Per 1 Mg NDC# [address]-44 Re viewed 06/04/2014 12:00 AM THER/PROPH/DIAG INJ SC/IM Reviewed 06/04/2014 12:00 AM Depo-Medrol 80 mg NDC#[address]-19 Revi ewed 06/04/2014 12:00 AM Decadron, Per 1 Mg NDC# [address]-24 Re viewed 10/16/2014 12:00 AM THER/PROPH/DIAG INJ SC/IM Reviewed 10/16/2014 12:00 AM Decadron 8 mg NDC# [address]-59 Reviewe d 10/16/2014 12:00 AM Depo-Medrol 80 mg NDC#[address]-26 Revi ewed 10/23/2014 12:00 AM RADEX SPINE [...] NonAA 90 GFR AA 109 eGFR >60 mL/min/1.73meGFR AA* >60 02/22/2018 4:00 PM WBC 8.0 RBC 4.94 HGB 13.9 HC T 43.0 MCV 87 MCH 28.1 MCHC 32.3 RDW SD 46 RDW CV 14.6 MPV 10.9 PLT 376 NRBC# 0.00 NRBC% 0.0 %NEUT 59.8 %LYMP 28.1 %MONO 8.0 %EOS 3.5 %BASO 0.3 #NEUT 4.77 #LYMP 2.24 #MONO 0.64 #EOS 0.28 #BASO 0.02 MANUAL DIFF NOT IND GLUCOSE 115 SODIUM 140 POTASSIUM 3.8 CHLORIDE 105 CO2 25 BUN 10 CREATININE 0.7 SGOT/AST 13 SGPT/ALT 14 ALK PHOS 84 TOTAL PROTEIN 8.2 ALBUMIN 4.6 TOTAL BILI 0.4 CALCIUM 9.9 AGE 47 GFR NonAA 89 GFR AA 108 eGFR 89 eGFR AA* >60 AMYLASE 29 LIPASE 20 03/28/2018 8:30 AM Class Description COMMENT D0 01-IgE D pteronyssinus 6.54 D002- IgE D farinae 3.24 R629-GuD Cat Dander 0.16 N202-WaV Dog Dander 0.10 R481-ItD [place] Grass <0.10 F405-MwI [place] <0.10 U296-AnO Immanuel Grass <0.10 J586-DkY Cockroach,Congolese 0.18 S720-MaK Penicilliumchrysogen <0.10 M002- IgE Cladosporiumherbarum <0.10 D852-ScG Aspergillusfumigatus <0.10 A344-QwS Mucor racemosus <0.10 N603-JbU Alternariaalternata 1.49 V155-YyU Stemphyliumherbarum <0.10 H299-FaY Maple/[place] <0.10 M071-TiR [place], White <0.10 V865-HwT Elm, Congolese <0.10 L200-CgC [place] <0.10 R489-WhK Magnus, White 0.11 B214-QxF Maple LeafSycamore <0.10 S845-YoJ [place] <0.10 H400-XwM Ragweed, Short 23.10 E154-EoJ [place] 1.43 W483-UiK Plantain,Georgian 0.11 W011- IgE Thistle, Citizen Of [place] <0.10 F291-RcK Pigweed, Common <0.10 F626-QzI Sheep [place] <0.10 Class Description COMMENT V901-AtY Milk <0.10 G001-FdW Wheat <0.10 F008- IgE Painter <0.10 S831-BnK Peanut <0.10 L481-XzO Soybean <0.10 V823-JwA Pork <0.10 I741-NfD Beef 0.25 YB34-ZrL Food Mix(Seafoods) Negative Y564-MqI Egg, Whole <0.10 U922-NfI Chocolate/[place] <0.10 04/15/2018 12:42 PM Falls in last 6 months? No U nsteady or worry about falling? No Fall Risk Assessment Not At Risk During the past month, have you been feeling depressed? No During the past month, have you lost interest in usual activity? No 07/22/2018 5:00 PM WBC 9.2 RBC 4.78 HGB 13.7 HC T 40.5 MCV 85 MCH 28.7 MCHC 33.8 RDW SD 44 RDW CV 14.2 MPV 10.1 PLT 322 NRBC# 0.00 NRBC% 0.0 %NEUT 61.0 %LYMP 29.3 %MONO 6.2 %EOS 2.8 %BASO 0.4 #NEUT 5.61 #LYMP 2.70 #MONO 0.57 #EOS 0.26 #BASO 0.04 MANUAL DIFF NOT IND TROPONIN-I AD <0.04 GLUCOSE 89 SODIUM 139 POTASSIUM 3.5 CHLORIDE 107 CO2 22 BUN 10 CREATININE 0.7 SGOT/AST 10 SGPT/ALT 12 ALK PHOS 90 TOTAL PROTEIN 7.6 ALBUMIN 4.4 TOTAL BILI 0.3 CALCIUM 9.5 AGE 47 GFR NonAA 89 GFR AA 108 eGFR 89 eGFR AA* >60 07/27/2018 2:47 PM Falls in last 6 months? No U nsteady or worry about falling? No Fall Risk Assessment Not At Risk During the past month, have you been feeling depressed? No During the past month, have you lost interest in usual activity? No Influenza A NEGATIVE Influenza B NEGATIVE History Of Immunizations Name Date Admin Mfg Name Mfg Code Trade Name Lot# Route Inj Vis Given Vis Pub CVX Tdap 03/07/2015 [employer] SKB BOOSTRIX [id number] Intramuscula r Left Deltoid [...] 2018 12:35PM Non-seasonal allergic rhinitis, unspecified trigger Dec 10 2 018 7:58AM Fatty liver disease, nonalcoholic [...] 10:14AM Back Pain Aug 01 2018 10:14AM Payers Insurance Name Company Name Plan Name Plan Number Policy Number Henry cy Group Number Start Date BCBS [employer]bs [employer] [place] [id number] N/ A [place] Medical Assistance [facility] [id number] Friday, 2008 [employer] [place] [id number] 2008 [facility] [id number] 2 December [facility] [id number] Wednesday, 2010 [facility] Med Occupational Medicine [id number] Friday, January 27, 2012 [employer] [place] [id number] We April 18, 2014 [employer] [id number] N/A Usd 506 USD 506 [id number] N/A [employer] [place] [id number] We February 27, 2015 [employer] [place] [id number] N/ A History of Encounters Visit Date Visit Type Provider 08/01/2018 Office visit Amna Marion REFUSE DRIVER 07/27/2018 Office visit Sondra Houser PRN 07/22/2018 Office visit Christal Gamez APR N 05/05/2018 Office visit Christal Gamez APR N [...] A PRN 05/10/2016 Office visit Alli Iniguez PROGRAM PROFESSIONAL 03/28/2016 Office visit Yoli Berlin REFUSE DRIVER 12/05/2015 Office visit Mica Luther DO 04/08/2015 Office visit Daniel Vizcainoran APR N 03/07/2015 Office visit Daniel Vizcainoran APR N 10/23/2014 Office visit Reggie Foy MD 10/16/2014 Office visit Reggie Foy MD 06/07/2014 Office visit Reggie Foy MD 06/04/2014 Office visit Daniel Vizcainoran APR N 05/22/2014 Voided Reggie Foy MD 03/06/2014 Office visit Daniel Vizcainoran APR N 08/01/2013 Office visit Lia pfeiffer REFUSE DRIVER 06/15/2012 Office visit Danilo Cantu MD 06/01/2012 Office visit Amna Marion REFUSE DRIVER 01/27/2012 Office visit Amna Marion REFUSE DRIVER 08/26/2011 Office visit Reggie Foy MD 05/08/2011 Office visit Amna Marion REFUSE DRIVER 04/24/2011 Office visit Danilo Cantu MD 01/30/2011 Office visit Amna Marion REFUSE DRIVER 09/30/2010 Office visit Reggie Foy MD 04/16/2010 Office visit Danilo Cantu MD 02/03/2010 Office visit Danilo Cantu MD 07/17/2009 Office visit Ivania MONDRAGON 01/28/2009 Nurse visit Reggie Foy MD 01/10/2009 Office visit Reggie Foy MD 12/26/2008 Office visit Alexys Schultz MD
--- OUTSIDE RECORDS SUMMARY | 2019-09-12 09:52 | XMS REPORT ---
Author Author Ana Marion Organization [facility] Address [address] [place], [place] [address] Care Team Providers Care Fuel Management Handler Name Role Phone Amna Marion PCP Sondra [...] (5 mg) by oral route daily at PRN Name Start Date Expiration Date SIG Comments [...] route every 12 hours for 10 days Discontinued Name Start Date [...] HC BMI BSA BMI Percentile O2 Sat(%) 08/24/2018 3:27:00 PM 148 mmHg 88 mmHg 93 bpm 18 rpm 97.9 F 248 lbs 66 in 40.0278 kg/m 2.2887 m 98 % 08/01/2018 10:13:00 AM 138 mmHg 78 mmHg 104 bpm 18 rpm 241 lbs 66 in 38.90 kg/m2 2.26 m2 96 % 07/27/2018 2:15:00 PM 148 mmHg [...] Comments denies smoking denies alcohol use 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 Never Tobacco Never smoker History of [...] Reviewed 05/08/2011 12:00 AM Decadron 1 mg NDC#[id number] (Eva) Reviewed 05/08/2011 12:00 AM Depo-Medrol 80 mg NDC#12436751967-Pyttub te Reviewed 12/11/2015 12:00 AM Screening mammography, [...] 12:00 AM Phenergan, Up to 50 Mg [facility]#4679-5503-03 Reviewed 06/01/2012 12:00 AM Toradol 60 Mg [facility]#7440-0932-35 Reviewed 06/01/2012 12:00 AM THER/PROPH/DIAG INJ SC/IM [...] 07/22/2018 12:00 AM Norflex 60mg Injection Reviewed 08/01/2013 12:00 AM CYTOPATH C/V MANUAL [...] Reviewed 03/06/2014 12:00 AM Depo-Medrol 80 mg NDC#[address]-15 Revi ewed 03/06/2014 12:00 AM Decadron, Per 1 Mg NDC# [address]-40 Re viewed 06/04/2014 12:00 AM THER/PROPH/DIAG INJ SC/IM Reviewed 06/04/2014 12:00 AM Depo-Medrol 80 mg NDC#[address]-84 Revi ewed 06/04/2014 12:00 AM Decadron, Per 1 Mg NDC# [address]-37 Re viewed 10/16/2014 12:00 AM THER/PROPH/DIAG INJ SC/IM Reviewed 10/16/2014 12:00 AM Decadron 8 mg NDC# [address]-21 Reviewe d 10/16/2014 12:00 AM Depo-Medrol 80 mg NDC#[address]-17 Revi ewed 10/23/2014 12:00 AM RADEX SPINE [...] pteronyssinus 6.54 D002- IgE D farinae 3.24 E283-GaW Cat Dander 0.16 T545-LvJ Dog Dander 0.10 G291-AtU [place] Grass <0.10 O238-NmU Bluegrass,[place] <0.10 F861-XxA Immanuel Grass <0.10 E113-JzT Cockroach,[place] 0.18 M521-CiJ Penicilliumchrysogen <0.10 M002- IgE Cladosporiumherbarum <0.10 P375-RzB Aspergillusfumigatus <0.10 F952-OgR Mucor racemosus <0.10 B525-FjV Alternariaalternata 1.49 A640-YfL Stemphyliumherbarum <0.10 L327-PpL Maple/[place] <0.10 R756-UyZ [place], White <0.10 U509-MpP Elm, [place]an <0.10 X798-JhA [place]ascade <0.10 F653-XpP Magnus, White 0.11 D076-CvB Maple LeafSycamore <0.10 X123-YpW [place] <0.10 R625-LwS Ragweed, Short 23.10 M675-WyV [place] 1.43 B469-BjG Plantain,American 0.11 W011- IgE Thistle, [place] <0.10 N436-CuZ Pigweed, Common <0.10 L675-DvM Sheep [place] <0.10 Class Description COMMENT N927-HkC Milk <0.10 T277-QdI Wheat <0.10 F008- IgE [place] <0.10 V434-EcP Peanut <0.10 X839-DfZ Soybean <0.10 E464-BrN Pork <0.10 S896-ElU Beef 0.25 PM50-SuG Food Mix(Seafoods) Negative F682-XlB Egg, Whole <0.10 P276-VzR Chocolate/[place] <0.10 04/15/2018 12:42 PM Falls in last [...] Vis Given Vis Pub CVX Tdap 03/07/2015 [employer] SKB BOOSTRIX [id number] Intramuscula r Left Deltoid [...] Paraspinal muscle spasm Aug 24 2018 3:32PM Payers Insurance Name Company Name Plan Name Plan Number Policy Number Henry cy Group Number Start Date BCBS [employer]bs [employer] [place] [id number] N/ A [place] Medical Assistance [facility] [id number] Friday, 2008 [employer]BS [employer] [place] [id number] 2008 [facility] [id number] 2 December [facility] [id number] Wednesday, 2010 [facility] Med Occupational Medicine [id number] Friday, January 27, 2012 [employer] [place] [id number] We April 18, 2014 [facility] [id number] N/A Usd [id number] N/A [employer] [place] [id number] We February 27, 2015 [employer] [place] [id number] N/ A History of Encounters Visit Date Visit Type Provider 08/24/2018 Office visit Amna Marion PHARMACIST TECHNICIAN 08/01/2018 Office visit Amna Marion PHARMACIST TECHNICIAN 07/27/2018 Office visit Sondra Pinto A PRN [...] visit Alli Iniguez NP 03/28/2016 Office visit Yolimarc Slade PHARMACIST TECHNICIAN 12/05/2015 Office visit Mica Sloan DO 04/08/2015 Office visit Daniel Acosta APR N 03/07/2015 Office visit Daniel Acosta APR N 10/23/2014 Office visit Reggie Foy MD 10/16/2014 Office visit Reggie Foy MD 06/07/2014 Office visit Reggie Foy MD 06/04/2014 Office visit Daniel Acosta APR N 05/22/2014 Voided Reggie Foy MD 03/06/2014 Office visit Daniel Acosta APR N 08/01/2013 Office visit Lia pfeiffer PHARMACIST TECHNICIAN 06/15/2012 Office visit Danilo Cantu MD 06/01/2012 Office visit Amna Marion PHARMACIST TECHNICIAN 01/27/2012 Office visit Amna Marion PHARMACIST TECHNICIAN 08/26/2011 Office visit Reggie Foy MD 05/08/2011 Office visit Amna Marion PHARMACIST TECHNICIAN 04/24/2011 Office visit Danilo Cantu MD 01/30/2011 Office visit Amna Marion PHARMACIST TECHNICIAN 09/30/2010 Office visit Reggie Foy MD 04/16/2010 Office visit Danilo Cantu MD 02/03/2010 Office visit Danilo Cantu MD 07/17/2009 Office visit Ivania MONDRAGON 01/28/2009 Nurse visit Reggie Foy MD 01/10/2009 Office visit Reggie Foy MD 12/26/2008 Office visit Alexys Schultz MD
--- OUTSIDE RECORDS SUMMARY | 2019-09-12 09:52 | XMS REPORT ---
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 Alcohol Never Tobacco Never smoker History of [...] Reviewed 05/08/2011 12:00 AM Decadron 1 mg NDC#[id number] (Eva) Reviewed 05/08/2011 12:00 AM Depo-Medrol 80 mg NDC#[id number]-Ruvqnt te Reviewed 12/11/2015 12:00 AM Screening mammography, [...] 12:00 AM Phenergan, Up to 50 Mg NDC#2742-5156-93 Reviewed 06/01/2012 12:00 AM Toradol 60 Mg [facility]#9087-4775-46 Reviewed 06/01/2012 12:00 AM THER/PROPH/DIAG INJ SC/IM [...] Reviewed 03/06/2014 12:00 AM Depo-Medrol 80 mg NDC#[address]-98 Revi ewed 03/06/2014 12:00 AM Decadron, Per 1 Mg NDC# [address]-71 Re viewed 06/04/2014 12:00 AM THER/PROPH/DIAG INJ SC/IM Reviewed 06/04/2014 12:00 AM Depo-Medrol 80 mg NDC#[address]-82 Revi ewed 06/04/2014 12:00 AM Decadron, Per 1 Mg NDC# [address]-93 Re viewed 10/16/2014 12:00 AM THER/PROPH/DIAG INJ SC/IM Reviewed 10/16/2014 12:00 AM Decadron 8 mg NDC# [address]-48 Reviewe d 10/16/2014 12:00 AM Depo-Medrol 80 mg NDC#[address]-77 Revi ewed 10/23/2014 12:00 AM RADEX SPINE [...] pteronyssinus 6.54 D002- IgE D farinae 3.24 S433-FoF Cat Dander 0.16 U008-WdD Dog Dander 0.10 R920-VgE [place] Grass <0.10 S568-MyT Bluegrass,[place] <0.10 Z174-EaP Immanuel Grass <0.10 G593-BnY Cockroach,Peruvian 0.18 Z431-GeU Penicilliumchrysogen <0.10 M002- IgE Cladosporiumherbarum <0.10 N016-AcI Aspergillusfumigatus <0.10 E199-WeO Mucor racemosus <0.10 J433-HjY Alternariaalternata 1.49 Q077-ZdJ Stemphyliumherbarum <0.10 I292-PeB Maple/[place] <0.10 K663-DnD [place], White <0.10 E026-MpT Elm, Peruvian <0.10 I408-JgX [place] <0.10 I201-MeN Magnus, White 0.11 N211-UmQ Maple LeafSycamore <0.10 D728-SgP White [place] <0.10 X057-OaQ Ragweed, Short 23.10 T830-MoZ [place] 1.43 G733-FmO Plantain,Slovenian 0.11 W011- IgE Thistle, Ugandan <0.10 B998-IoH Pigweed, Common <0.10 Y340-OpK Sheep [place] <0.10 Class Description COMMENT Z456-PyO Milk <0.10 G113-IlW Wheat <0.10 F008- IgE [place] <0.10 L467-XkG Peanut <0.10 F439-EnG Soybean <0.10 M854-QgE Pork <0.10 T806-TjQ Beef 0.25 LV24-WzN Food Mix(Seafoods) Negative M163-TeW Egg, Whole <0.10 X045-ZmG Chocolate/[place] <0.10 04/15/2018 12:42 PM Falls in last [...] Vis Given Vis Pub CVX Tdap 03/07/2015 [employer] SKB BOOSTRIX [id number] Intramuscula r Left [...] Non-seasonal allergic rhinitis, unspecified trigger Mar 28 7:58AM Fatty liver disease, nonalcoholic Mar 28 [...] Group Number Start Date BCBS [employer] Of [place] [id number] N/ A [place] Medical Assistance [facility] [id number] Friday, 2008 [employer] [place] [place] [id number] [address] [facility] [id number] 2 December [facility] [id number] Wednesday, 2010 [facility] [id number] Friday, January 27, 2012 BCBS [place] [id number] We April 18, 2014 Medium Work Comp Medium [id number] N/A Usd 506 USD 506 [id number] N/A BCBS [employer] [place] [id number] We February 27, 2015 BCBS [place] [id number] N/ A History of Encounters Visit Date Visit Type Provider 08/01/2018 Office visit Amna Marion FINISH FILER 07/27/2018 Office visit Sondra Houser PRN 07/22/2018 Office visit Christal Gamez APR N 05/05/2018 Office visit Christal Gamez APR N 03/28/2018 Office visit Sondra Houser PRN 02/22/2018 Office visit Sondra Houser PRN 12/23/2017 Office visit Sondra Houser PRN 06/24/2017 Laboratory Sondra Pinto A PRN 06/07/2017 Office visit Sondra Houser PRN 05/25/2017 Office visit Sonrda Pinto A PRN 05/04/2017 Office visit Sondra Pinto A PRN 04/21/2017 Office visit Sondra Pinto A PRN 05/10/2016 Office visit Alli Iniguez STOCK SPECULATOR 03/28/2016 Office visit Yoli Berlin FINISH FILER 12/05/2015 Office visit Mica Luther DO 04/08/2015 Office visit Daniel Vizcainoran APR N 03/07/2015 Office visit Daniel Vizcainoran APR N 10/23/2014 Office visit Reggie Foy MD 10/16/2014 Office visit Reggie Foy MD 06/07/2014 Office visit Reggie Foy MD 06/04/2014 Office visit Daniel Vizcainoran APR N 05/22/2014 Voided Reggie Foy MD 03/06/2014 Office visit Daniel Vizcainoran APR N 08/01/2013 Office visit Lia Franks n FINISH FILER 06/15/2012 Office visit Danilo Cantu MD 06/01/2012 Office visit Amna Marion FINISH FILER 01/27/2012 Office visit Amna Marion FINISH FILER 08/26/2011 Office visit Reggie Foy MD 05/08/2011 Office visit Amna Marion FINISH FILER 04/24/2011 Office visit Danilo Cantu MD 01/30/2011 Office visit Amna Marion FINISH FILER 09/30/2010 Office visit Reggie Foy MD 04/16/2010 Office visit Danilo Cantu MD 02/03/2010 Office visit Danilo Cantu MD 07/17/2009 Office visit Ivania MONDRAGON 01/28/2009 Nurse visit Reggie Foy MD 01/10/2009 Office visit Reggie Foy MD 12/26/2008 Office visit Alexys Schultz MD
--- OUTSIDE RECORDS SUMMARY | 2019-09-12 09:53 | XMS REPORT ---
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 Alcohol Never Tobacco Never smoker History of [...] Reviewed 05/08/2011 12:00 AM Decadron 1 mg NDC#[id number] (Eva) Reviewed 05/08/2011 12:00 AM Depo-Medrol 80 mg NDC#[id number]-Slywfb te Reviewed 12/11/2015 12:00 AM Screening mammography, [...] 12:00 AM Phenergan, Up to 50 Mg [facility]#5141-6806-35 Reviewed 06/01/2012 12:00 AM Toradol 60 Mg [facility]#4786-4317-60 Reviewed 06/01/2012 12:00 AM THER/PROPH/DIAG INJ SC/IM [...] Reviewed 03/06/2014 12:00 AM Depo-Medrol 80 mg NDC#[address]-81 Revi ewed 03/06/2014 12:00 AM Decadron, Per 1 Mg NDC# [address]-39 Re viewed 06/04/2014 12:00 AM THER/PROPH/DIAG INJ SC/IM Reviewed 06/04/2014 12:00 AM Depo-Medrol 80 mg NDC#[address]-14 Revi ewed 06/04/2014 12:00 AM Decadron, Per 1 Mg NDC# [address]-01 Re viewed 10/16/2014 12:00 AM THER/PROPH/DIAG INJ SC/IM Reviewed 10/16/2014 12:00 AM Decadron 8 mg NDC# [address]-82 Reviewe d 10/16/2014 12:00 AM Depo-Medrol 80 mg NDC#[address]-84 Revi ewed 10/23/2014 12:00 AM RADEX SPINE [...] pteronyssinus 6.54 D002- IgE D farinae 3.24 X479-YwR Cat Dander 0.16 H022-UvV Dog Dander 0.10 Z071-QeR [place] Grass <0.10 D421-XuJ Bluegrass,[place] <0.10 W912-OhF Immanuel Grass <0.10 G760-JsI Cockroach,Honduran 0.18 W368-NnT Penicilliumchrysogen <0.10 M002- IgE Cladosporiumherbarum <0.10 I531-AzD Aspergillusfumigatus <0.10 D664-YvT Mucor racemosus <0.10 V584-HhW Alternariaalternata 1.49 I410-RhF Stemphyliumherbarum <0.10 X448-GmU Maple/[place] <0.10 P192-UfH [place], White <0.10 N463-SyP Elm, Honduran <0.10 F687-XvY [place] <0.10 J047-OfD Magnus, White 0.11 T620-HeM Maple LeafSycamore <0.10 N046-EeJ White [place] <0.10 W226-SgI Ragweed, Short 23.10 G845-FzI [place] 1.43 R948-ZjF Plantain,Taiwanese 0.11 W011- IgE Thistle, Nepalese <0.10 M134-MrY Pigweed, Common <0.10 B159-CiM Sheep [place] <0.10 Class Description COMMENT P478-QcX Milk <0.10 X124-CfQ Wheat <0.10 F008- IgE [place] <0.10 V352-BdA Peanut <0.10 A471-QrK Soybean <0.10 K441-MoO Pork <0.10 I179-VxB Beef 0.25 TD06-MhY Food Mix(Seafoods) Negative Y894-TfL Egg, Whole <0.10 N175-XxR Chocolate/[place] <0.10 04/15/2018 12:42 PM Falls in last [...] Vis Given Vis Pub CVX Tdap 03/07/2015 [employer] SKB BOOSTRIX H9P57 Intramuscula r Left Deltoid [...] Thoracic back pain Aug 01 2018 10:14AM Payers Insurance Name Company Name Plan Name Plan Number Policy Number Henry cy Group Number Start Date BCBS [place]bs [place] [id number] N/ A [place] Medical Assistance [facility] [id number] Friday, 2008 BCBS [place] [id number] 2008 [facility] [id number] 2 December [facility] [id number] Wednesday, 2010 [facility] Med Occupational Medicine [id number] Friday, January 27, 2012 BCBS [place] [id number] We April 18, 2014 Mgv Work Comp Mgv [id number] N/A Usd 506 USD 506 [id number] N/A BCBS [place] [id number] We February 27, 2015 BCBS [place] [id number] N/ A History of Encounters Visit Date Visit Type Provider 08/01/2018 Office visit Amna Marion SUPERVISOR TYPE BAR AND SEGMENT 07/27/2018 Office visit Sondra Houser PRN 07/22/2018 [...] A PRN 05/10/2016 Office visit Alli Iniguez ENGRAVING PRESS OPERATOR 03/28/2016 Office visit Yoli Berlin SUPERVISOR TYPE BAR AND SEGMENT 12/05/2015 Office visit Mica Sloan DO 04/08/2015 Office visit Daniel Vizcainoran APR N 03/07/2015 Office visit Daniel Vizcainoran APR N 10/23/2014 Office visit Reggie Foy MD 10/16/2014 Office visit Reggie Foy MD 06/07/2014 Office visit Reggie Foy MD 06/04/2014 Office visit Daniel Vizcainoran APR N 05/22/2014 Voided Reggie Foy MD 03/06/2014 Office visit Daniel Vizcainoran APR N 08/01/2013 Office visit Lia pfeiffer SUPERVISOR TYPE BAR AND SEGMENT 06/15/2012 Office visit Danilo Cantu MD 06/01/2012 Office visit Amna Marion SUPERVISOR TYPE BAR AND SEGMENT 01/27/2012 Office visit Amna Marion SUPERVISOR TYPE BAR AND SEGMENT 08/26/2011 Office visit Reggie Foy MD 05/08/2011 Office visit Amna Marion SUPERVISOR TYPE BAR AND SEGMENT 04/24/2011 Office visit Danilo Cantu MD 01/30/2011 Office visit Amna Marion SUPERVISOR TYPE BAR AND SEGMENT 09/30/2010 Office visit Reggie Foy MD 04/16/2010 Office visit Danilo Cantu MD 02/03/2010 Office visit Danilo Cantu MD 07/17/2009 Office visit Ivania MONDRAGON 01/28/2009 Nurse visit Reggie Foy MD 01/10/2009 Office visit Reggie Foy MD 12/26/2008 Office visit Alexys Schultz MD
--- OUTSIDE RECORDS SUMMARY | 2019-09-12 09:53 | XMS REPORT ---
Author Author Ana Pinto [facility] Address [address] [place], [place] [address] Care Team Providers Care Hyperbaric Technician Name Role Phone Sondra Pinto PCP Sondra Pinto PreferredProvider Allergies and Adverse Reactions Name Reaction Notes PENICILLINS hives Bactrim DS Plan of Treatment Planned Activity Comments Planned Date Planned Time Plan/Goal INFLUENZA A & B 07/27/2018 12:00 AM Injection, Subcutaneous/IM 07/27/2018 12:00 AM Medications Active Name Start [...] (Javier) 4 mg oral tablets,dose pack 12/23/2017 9/12/20 18 take 6 today then 5>4>3>2>1 lovastatin [...] HC BMI BSA BMI Percentile O2 Sat(%) 07/27/2018 2:15:00 PM 148 mmHg 80 mmHg 112 bpm 18 rpm 99.5 F 246.375 lbs 66 in 39.7656 kg/m 2.2812 m 94 % 07/22/2018 3:38:00 PM 158 mmHg 96 mmHg 86 bpm 16 rpm 97.9 F 248.125 lbs 66 i n 40.05 kg/m2 2.29 m2 98 % 05/05/2018 2:02:00 PM 160 mmHg 98 mmHg 105 bpm 18 rpm 98.8 F 244 lbs 66 in 39.3822 kg/m 2.2702 m 95 % 03/28/2018 7:56:00 AM 128 mmHg 86 mmHg 82 bpm 18 rpm 98.1 F 241.25 lbs 66 in 38.94 kg/m2 2.26 m2 97 % 02/22/2018 3:18:00 PM 128 mmHg 78 mmHg 68 bpm 18 rpm 98.1 F 239 lbs 66 in 38.5752 kg/m 2.2468 m 99 % 12/23/2017 2:00:00 PM 126 mmHg 78 mmHg 88 bpm 18 rpm 98.2 F 242.125 lbs 66 i n 39.08 kg/m2 2.26 m2 98 % 06/07/2017 9:00:00 AM 124 mmHg 74 mmHg 98 bpm 18 rpm 98.3 F 249 lbs 66 in 40.1892 kg/m 2.2934 m 97 % 05/25/2017 1:44:00 PM 132 mmHg 88 mmHg 104 bpm 18 rpm 98.4 F 257 lbs 66 in 41.48 kg/m2 2.33 m2 97 % 05/04/2017 3:44:00 PM 132 mmHg 88 mmHg 82 bpm 18 rpm 98.6 F 258 lbs 66 in 41.6419 kg/m 2.3344 m 97 % 04/21/2017 1:54:00 PM 122 mmHg 84 mmHg 90 bpm 18 rpm 98.8 F 255.375 lbs 66 i n 41.22 kg/m2 2.32 m2 97 % 05/10/2016 3:45:00 PM 138 mmHg 88 mmHg 99 bpm 18 rpm 96.8 F 255 lbs 66 in 41.1577 kg/m 2.3208 m 97 % 03/28/2016 1:16:00 PM 140 mmHg 84 mmHg 106 bpm 18 rpm 100.9 F 259 lbs 66 i n 41.80 kg/m2 2.34 m2 97 % 12/05/2015 10:20:00 AM 152 mmHg 83 mmHg 87 bpm 98.8 F 259 lbs 66 in 41.8033 kg/m 2.339 m 04/08/2015 9:19:00 AM 145 mmHg 90 mmHg 83 bpm 16 rpm 97.6 F 256 lbs 66 in 41.32 kg/m2 2.33 m2 97 % 03/07/2015 7:36:00 PM 144 mmHg 84 mmHg 79 bpm 18 rpm 98.6 F 257.125 lbs 66 in 41.5006 kg/m 2.3305 m 98 % 10/23/2014 9:09:00 AM 160 mmHg 78 mmHg 96 bpm 16 rpm 98.3 F 251 lbs 66 in 40.51 kg/m2 2.30 m2 98 % 10/16/2014 10:36:00 AM 140 mmHg 90 mmHg 92 bpm 16 rpm 98.4 F 250 lbs 77 in 29.6454 kg/m 2.4821 m 97 % 06/07/2014 2:50:00 PM 162 mmHg 80 mmHg 78 bpm 18 rpm 98.8 F 252.5 lbs 66 in 40.75 kg/m2 2.31 m2 99 % 06/04/2014 2:21:00 PM 150 mmHg 80 mmHg 92 bpm 18 rpm 99.3 F 247 lbs 66 in 39.8664 kg/m 2.2841 m 96 % 05/22/2014 1:36:00 PM 152 mmHg 88 mmHg 64 bpm 16 rpm 98.1 F 250 lbs 66 in 40.35 kg/m2 2.30 m2 03/06/2014 2:00:00 PM 140 mmHg 80 mmHg 104 bpm 18 rpm 98.2 F 240 lbs 66 in 38.7366 kg/m 2.2515 m 96 % 08/01/2013 8:50:00 AM 155 mmHg 81 mmHg 76 bpm 99.1 F 224 lbs 66 in 36.15 kg/m2 2.18 m2 06/15/2012 3:17:00 PM 133 mmHg 82 mmHg 94 bpm 97.9 F 243 lbs 66 in 39.2208 kg/m 2.2656 m 06/01/2012 11:27:00 AM 132 mmHg 64 mmHg 66 bpm 18 rpm 98 F 239 lbs 66 in 38.58 kg/m2 2.25 m2 01/27/2012 1:32:00 PM 124 mmHg 66 mmHg 66 bpm 18 rpm 97 F 236.25 lbs 66 i n 38.1314 kg/m 2.2339 m 08/26/2011 9:46:00 AM 120 mmHg 72 mmHg 68 bpm 18 rpm 98.4 F 228 lbs 66 in 36.80 kg/m2 2.19 m2 05/08/2011 9:44:00 AM 122 mmHg 64 mmHg 66 bpm 18 rpm 97.5 F 221 lbs 66 in 35.67 kg/m 2.1606 m 04/24/2011 3:12:00 PM 133 mmHg 88 mmHg 92 bpm 98.8 F 220 lbs 66 in 35.51 kg/m2 2.16 m2 01/30/2011 3:00:00 PM 130 mmHg 60 mmHg [...] Comments denies smoking denies alcohol use 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 Alcohol Never Tobacco Never smoker History of [...] 05/08/2011 12:00 AM Decadron 1 mg [facility]#[id number] (Eva) Reviewed 05/08/2011 12:00 AM Depo-Medrol 80 mg NDC#74565669991-Mfpxsq te Reviewed 12/11/2015 12:00 AM Screening mammography, [...] AM Phenergan, Up to 50 Mg [facility]#8871-2485-74 Reviewed 06/01/2012 12:00 AM Toradol 60 Mg [facility]#0024-7449-10 Reviewed 06/01/2012 12:00 AM THER/PROPH/DIAG INJ SC/IM [...] 12:00 AM Norflex 60mg Injection Reviewed 07/27/2018 2:47 PM INFLUENZA A/B AG EIA Reviewed 08/01/2013 12:00 AM CYTOPATH C/V MANUAL [...] Reviewed 03/06/2014 12:00 AM Depo-Medrol 80 mg [facility]#[address]-95 Revi ewed 03/06/2014 12:00 AM Decadron, Per 1 Mg [facility]# [address]-77 Re viewed 06/04/2014 12:00 AM THER/PROPH/DIAG INJ SC/IM Reviewed 06/04/2014 12:00 AM Depo-Medrol 80 mg NDC#[address]-24 Revi ewed 06/04/2014 12:00 AM Decadron, Per 1 Mg [facility]# [address]-13 Re viewed 10/16/2014 12:00 AM THER/PROPH/DIAG INJ SC/IM Reviewed 10/16/2014 12:00 AM Decadron 8 mg [facility]# [address]-64 Reviewe d 10/16/2014 12:00 AM Depo-Medrol 80 mg NDC#90977-2018-19 Revi ewed 10/23/2014 12:00 AM RADEX SPINE [...] pteronyssinus 6.54 D002- IgE D farinae 3.24 C196-IzI Cat Dander 0.16 N180-QvL Dog Dander 0.10 C678-FgA [place] Grass <0.10 B652-LcI Bluegrass,[place] <0.10 P613-RtG Immanuel Grass <0.10 I554-OhU Cockroach,Georgian 0.18 G943-NmF Penicilliumchrysogen <0.10 M002- IgE Cladosporiumherbarum <0.10 G452-NmM Aspergillusfumigatus <0.10 Y202-EvK Mucor racemosus <0.10 T063-FwM Alternariaalternata 1.49 R653-WaX Stemphyliumherbarum <0.10 Q860-YdE Maple/[place] <0.10 J812-OzO Hurricane, White <0.10 H157-DgK Elm, Georgian <0.10 X212-MlC [place] <0.10 Z757-PuK Magnus, White 0.11 H978-TxC Maple LeafSycamore <0.10 H197-PxS White [place] <0.10 B110-JiM Ragweed, Short 23.10 W523-DwR [place] 1.43 P845-WeR Plantain,[place] Citizen 0.11 W011- IgE Thistle, Malagasy <0.10 H628-CeA Pigweed, Common <0.10 N424-GoQ Sheep [place] <0.10 Class Description COMMENT O198-SqF Milk <0.10 V697-UvG Wheat <0.10 F008- IgE [place] <0.10 F138-YoR Peanut <0.10 D190-WcY Soybean <0.10 B912-CgV Pork <0.10 L116-QxR Beef 0.25 RG12-IjD Food Mix(Seafoods) Negative O624-WqH Egg, Whole <0.10 M811-NpY Chocolate/[place] <0.10 04/15/2018 12:42 PM Falls in last [...] Vis Given Vis Pub CVX Tdap 03/07/2015 [employer] SKB BOOSTRIX H9P57 Intramuscula r Left Deltoid [...] of right shoulder Jul 27 2018 2:20PM Payers Insurance Name Company Name Plan Name Plan Number Policy Number Henry cy Group Number Start Date BCBS [place]bs [place] [id number] N/ A [place] Program [facility] Any[facility] Velasquez [id number] Friday, 2008 [place] [place] [id number] 2008 [id number] [address] [facility] [id number] Wednesday, 2010 [facility] Occupational Medicine [id number] Friday, January 27, 2012 [employer] [place] [id number] We April 18, 2014 [employer] Work Comp [employer] [id number] N/A Usd 506 USD 506 [id number] N/A [employer] [place] [id number] We February 27, 2015 [employer] [place] [id number] N/ A History of Encounters Visit Date Visit Type Provider 07/27/2018 Office visit Sondra Houser PRN 07/22/2018 Office visit Christal TinsleySally Gamez APR N 05/05/2018 Office visit Christal TinsleySally Gamez APR N 03/28/2018 Office visit Sondra Cliff Houser PRN 02/22/2018 Office visit Sondra Cliff Houser PRN 12/23/2017 Office visit Sondra Cliff Houser PRN 06/24/2017 Laboratory Sondra Cliff Houser PRN 06/07/2017 Office visit Sondra Houser PRN 05/25/2017 Office visit Sondra Houser PRN 05/04/2017 Office visit Sondra Houser PRN 04/21/2017 Office visit Sondra Houser PRN 05/10/2016 Office visit Alli Iniguez NP 03/28/2016 Office visit Yoli Slade CRIMINAL JUSTICE DEPARTMENT CHAIR 12/05/2015 Office visit Mica Sloan DO 04/08/2015 Office visit Daniel Vizcainoran APR N 03/07/2015 Office visit Daniel Acosta APR N 10/23/2014 Office visit Reggie Foy MD 10/16/2014 Office visit Reggie Foy MD 06/07/2014 Office visit Reggie Foy MD 06/04/2014 Office visit Daniel Acosta APR N 05/22/2014 Voided Reggie Foy MD 03/06/2014 Office visit Daniel Vizcainoran APR N 08/01/2013 Office visit Lia Franks n CRIMINAL JUSTICE DEPARTMENT CHAIR 06/15/2012 Office visit Danilo Cantu MD 06/01/2012 Office visit Amna Marion CRIMINAL JUSTICE DEPARTMENT CHAIR 01/27/2012 Office visit Amna Marion CRIMINAL JUSTICE DEPARTMENT CHAIR 08/26/2011 Office visit Reggie Foy MD 05/08/2011 Office visit Amna Marion CRIMINAL JUSTICE DEPARTMENT CHAIR 04/24/2011 Office visit Danilo Cantu MD 01/30/2011 Office visit Amna Marion CRIMINAL JUSTICE DEPARTMENT CHAIR 09/30/2010 Office visit Reggie Foy MD 04/16/2010 Office visit Danilo Cantu MD 02/03/2010 Office visit Danilo Cantu MD 07/17/2009 Office visit Ivania MONDRAGON 01/28/2009 Nurse visit Reggie Foy MD 01/10/2009 Office visit Reggei Foy MD 12/26/2008 Office visit Alexys Schultz MD
--- OUTSIDE RECORDS SUMMARY | 2019-09-12 09:54 | XMS REPORT ---
Author Author Ana Pinto [facility] Address [address] [place], [place] [address] Care Team Providers Care Client Success Specialist Name Role Phone Sondra Pinto PCP Sondra Pinto PreferredProvider Allergies and Adverse Reactions Name Reaction Notes PENICILLINS hives Bactrim DS Plan of Treatment Not available. Medications Active Name Start Date Estimated Completion Date SIG Co mments lovastatin 10 mg oral tablet 03/07/2018 09/03/2018 danyelle e 1 tablet (10 mg) by oral route once daily with the evening meal ON Wednesday AND WEDNESDAY Name Start Date Expiration Date SIG Comments [...] 12/30/19 18 take 6 today then 5>4>3>2>1 Discontinued Name Start Date Discontinued Date SIG [...] HC BMI BSA BMI Percentile O2 Sat(%) 03/28/2018 7:56:00 AM 128 mmHg 86 mmHg [...] F 249 lbs 66 in 40.1892 kg/m 2.29 m2 97 % 05/25/2017 1:44:00 PM 132 mmHg 88 mmHg 104 bpm 18 rpm 98.4 F 257 lbs 66 in 41.48 kg/m2 2.3299 m 97 % 05/04/2017 3:44:00 PM [...] Comments denies smoking denies alcohol use 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 Alcohol Never Tobacco Never smoker History of [...] Reviewed 05/08/2011 12:00 AM Decadron 1 mg ND#[id number] (Eva) Reviewed 05/08/2011 12:00 AM Depo-Medrol 80 mg NDC#[id number]-Psrmqv te Reviewed 12/11/2015 12:00 AM Screening mammography, [...] 12:00 AM Phenergan, Up to 50 Mg [facility]#0749-4934-09 Reviewed 06/01/2012 12:00 AM Toradol 60 Mg [facility]#7967-6546-76 Reviewed 06/01/2012 12:00 AM THER/PROPH/DIAG INJ SC/IM Reviewed 06/15/2012 12:00 AM CYTOPATH C/V MANUAL Reviewed 06/15/2012 12:00 AM SPECIMEN HANDLING OFFICE-LAB Reviewed 02/22/2018 12:00 AM COMPLETE CBC W/AUTO DIFF WBC Reviewed 02/22/2018 12:00 AM COMPREHEN METABOLIC PANEL Reviewed 02/22/2018 12:00 AM ASSAY OF AMYLASE Reviewed 02/22/2018 12:00 AM ASSAY OF LIPASE Reviewed 02/22/2018 12:00 AM US EXAM ABDOM COMPLETE Reviewed 03/28/2018 12:00 AM ALLERGEN SPECIFIC IGE Returned 03/28/2018 12:00 AM ALLERGEN SPECIFIC IGE Returned 08/01/2013 12:00 AM CYTOPATH C/V MANUAL [...] Reviewed 03/06/2014 12:00 AM Depo-Medrol 80 mg NDC#[address]-34 Revi ewed 03/06/2014 12:00 AM Decadron, Per 1 Mg NDC# [address]-32 Re viewed 06/04/2014 12:00 AM THER/PROPH/DIAG INJ SC/IM Reviewed 06/04/2014 12:00 AM Depo-Medrol 80 mg NDC#[address]-88 Revi ewed 06/04/2014 12:00 AM Decadron, Per 1 Mg NDC# [address]-11 Re viewed 10/16/2014 12:00 AM THER/PROPH/DIAG INJ SC/IM Reviewed 10/16/2014 12:00 AM Decadron 8 mg NDC# [address]-38 Reviewe d 10/16/2014 12:00 AM Depo-Medrol 80 mg NDC#[address]-86 Revi ewed 10/23/2014 12:00 AM RADEX SPINE [...] eGFR AA* >60 AMYLASE 29 LIPASE 20 History Of Immunizations Name Date Admin Mfg Name Mfg Code Trade Name Lot# Route Inj Vis Given Vis Pub CVX Tdap 03/07/2015 GlaxoSmRevolutKline SKB BOOSTRIX [id number] Intramuscula r Left Deltoid [...] 2018 7:58AM Nausea Mar 28 2018 7:58AM Payers Insurance Name Company Name Plan Name Plan Number Policy Number Henry Group Number Start Date BCBS [place] [id number] N/ A [place] Medical Assistance [facility] lucíaangelica [facility] [id number] Friday, 2008 [place] [id number] [id number] 2 December [facility] [id number] Wednesday, 2010 [facility] Med Occupational Medicine [id number] Friday, January 27, 2012 [employer] [place] [place] [id number] We April 18, 2014 [employer] Work Comp [employer] [id number] N/A Usd 506 USD 506 [id number] N/A [employer] [id number] We February 27, 2015 [employer] [place] [id number] N/ A History of Encounters Visit Date Visit Type Provider 03/28/2018 Office visit Sondra Houser PRN 02/22/2018 Office visit Sondra Houser PRN 12/23/2017 Office visit Sondra Pinto A PRN 06/24/2017 Laboratory Sondra Pinto A PRN 06/07/2017 Office visit Sondra Houser PRN 05/25/2017 Office visit Sondra Pinto A PRN 05/04/2017 Office visit Sondra Pinto A PRN 04/21/2017 Office visit Sondra Pinto A PRN 05/10/2016 Office visit Alli Iniguez NP 03/28/2016 Office visit Yoli Slade HEATING REPAIR TECHNICIAN 12/05/2015 Office visit Mica Sloan DO 04/08/2015 Office visit Daniel Acosta APR N 03/07/2015 Office visit Daniel Acosta APR N 10/23/2014 Office visit Reggie Foy MD 10/16/2014 Office visit Reggie Foy MD 06/07/2014 Office visit Reggie Foy MD 06/04/2014 Office visit Daniel Acosta APR N 05/22/2014 Voided Reggie Foy MD 03/06/2014 Office visit Daniel Acosta APR N 08/01/2013 Office visit Lia pfeiffer HEATING REPAIR TECHNICIAN 06/15/2012 Office visit Danilo Cantu MD 06/01/2012 Office visit Amna Marion HEATING REPAIR TECHNICIAN 01/27/2012 Office visit Amna Marion HEATING REPAIR TECHNICIAN 08/26/2011 Office visit Reggie Foy MD 05/08/2011 Office visit Amna Marion HEATING REPAIR TECHNICIAN 04/24/2011 Office visit Danilo Cantu MD 01/30/2011 Office visit Amna Marion HEATING REPAIR TECHNICIAN 09/30/2010 Office visit Reggie Foy MD 04/16/2010 Office visit Danilo Cantu MD 02/03/2010 Office visit Danilo Cantu MD 07/17/2009 Office visit Ivania MONDRAGON 01/28/2009 Nurse visit Reggie Foy MD 01/10/2009 Office visit Reggie Foy MD 12/26/2008 Office visit Alexys Schultz MD
--- OUTSIDE RECORDS SUMMARY | 2019-09-12 09:54 | XMS REPORT ---
Author Author Ana Gamez Organization [facility] Physicians oup Address [address] [place], [place] [address] Care Team Providers Care Safety Relief Valve Technician Name Role Phone Christal Gamez PCP Sondra Pinto PreferredProvider Allergies and Adverse [...] tab (20 MG) po x 4 days Name Start Date Expiration Date SIG [...] days cyclobenzaprine 10 mg oral tablet 05/04/2017 05/25/20172 to 1 tablet at bedtime for muscle [...] HC BMI BSA BMI Percentile O2 Sat(%) 05/05/2018 2:02:00 PM 160 mmHg 98 mmHg [...] F 250 lbs 77 in 29.65 kg/m2 2.4821 m 97 % 06/07/2014 2:50:00 PM 162 mmHg 80 mmHg 78 bpm 18 rpm 98.8 F 252.5 lbs 66 in 40.7541 kg/m 2.31 m2 99 % 06/04/2014 2:21:00 PM 150 mmHg 80 mmHg 92 bpm 18 rpm 99.3 F 247 lbs 66 in 39.87 kg/m2 2.2841 m 96 % 05/22/2014 1:36:00 PM 152 mmHg 88 mmHg 64 bpm 16 rpm 98.1 F 250 lbs 66 in 40.3506 kg/m 2.30 m2 03/06/2014 2:00:00 PM 140 mmHg 80 mmHg 104 bpm 18 rpm 98.2 F 240 lbs 66 in 38.74 kg/m2 2.2515 m 96 % 08/01/2013 8:50:00 AM 155 mmHg 81 mmHg 76 bpm 99.1 F 224 lbs 66 in 36.1542 kg/m 2.18 m2 06/15/2012 3:17:00 PM 133 mmHg 82 mmHg 94 bpm 97.9 F 243 lbs 66 in 39.22 kg/m2 2.2656 m 06/01/2012 11:27:00 AM 132 mmHg 64 mmHg 66 bpm 18 rpm 98 F 239 lbs 66 in 38.5752 kg/m 2.25 m2 01/27/2012 1:32:00 PM 124 mmHg 66 mmHg 66 bpm 18 rpm 97 F 236.25 lbs 66 i n 38.13 kg/m2 2.2339 m 08/26/2011 9:46:00 AM 120 mmHg 72 mmHg 68 bpm 18 rpm 98.4 F 228 lbs 66 in 36.7998 kg/m 2.19 m2 05/08/2011 9:44:00 AM 122 mmHg 64 mmHg 66 bpm 18 rpm 97.5 F 221 lbs 66 in 35.67 kg/m2 2.1606 m 04/24/2011 3:12:00 PM 133 mmHg 88 mmHg 92 bpm 98.8 F 220 lbs 66 in 35.5086 kg/m 2.16 m2 01/30/2011 3:00:00 PM 130 mmHg [...] Comments denies smoking denies alcohol use 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 Never Tobacco Never smoker History of [...] Reviewed 05/08/2011 12:00 AM Decadron 1 mg ND#[id number] (Eva) Reviewed 05/08/2011 12:00 AM Depo-Medrol 80 mg ND#[id number] te Reviewed 12/11/2015 12:00 AM Screening mammography, [...] 12:00 AM Phenergan, Up to 50 Mg [facility]#5830-0242-01 Reviewed 06/01/2012 12:00 AM Toradol 60 Mg [facility]#6284-4418-66 Reviewed 06/01/2012 12:00 AM THER/PROPH/DIAG INJ SC/IM [...] 12:00 AM US EXAM ABDOM COMPLETE Reviewed 08/01/2013 12:00 AM CYTOPATH C/V MANUAL [...] Reviewed 03/06/2014 12:00 AM Depo-Medrol 80 mg NDC#[address]-26 Revi ewed 03/06/2014 12:00 AM Decadron, Per 1 Mg NDC# [address]-26 Re viewed 06/04/2014 12:00 AM THER/PROPH/DIAG INJ SC/IM Reviewed 06/04/2014 12:00 AM Depo-Medrol 80 mg NDC#[address]-84 Revi ewed 06/04/2014 12:00 AM Decadron, Per 1 Mg NDC# [address]-15 Re viewed 10/16/2014 12:00 AM THER/PROPH/DIAG INJ SC/IM Reviewed 10/16/2014 12:00 AM Decadron 8 mg NDC# [address]-74 Reviewe d 10/16/2014 12:00 AM Depo-Medrol 80 mg NDC#[address]-19 Revi ewed 10/23/2014 12:00 AM RADEX SPINE [...] pteronyssinus 6.54 D002- IgE D farinae 3.24 K014-BlT Cat Dander 0.16 U755-DuA Dog Dander 0.10 J352-SqP [place] Grass <0.10 G862-LiH Bluegrass,[place] <0.10 B603-BpK Immanuel Grass <0.10 I367-AlI Cockroach,Bolivian 0.18 T764-BdE Penicilliumchrysogen <0.10 M002- IgE Cladosporiumherbarum <0.10 H700-YpI Aspergillusfumigatus <0.10 Z730-EjA Mucor racemosus <0.10 N268-HvB Alternariaalternata 1.49 U875-DoD Stemphyliumherbarum <0.10 I555-PlM Maple/[place] <0.10 G399-KyA [place], White <0.10 O292-TnG Elm, Bolivian <0.10 F460-RsO [place] <0.10 U545-AmI Magnus, White 0.11 Y351-TpD Maple LeafSycamore <0.10 P964-NuB White [place] <0.10 J713-LgR Ragweed, Short 23.10 H803-JfG [place] 1.43 M059-MzK Plantain,Haitian 0.11 W011- IgE Thistle, Burmese <0.10 O823-OvB Pigweed, Common <0.10 C135-HnP Sheep [place] <0.10 Class Description COMMENT D216-JjX Milk <0.10 Q085-RmJ Wheat <0.10 F008- IgE [place] <0.10 N222-FgW Peanut <0.10 E821-LrB Soybean <0.10 A182-JhP Pork <0.10 A736-XnQ Beef 0.25 CR02-LgX Food Mix(Seafoods) Negative L556-HhM Egg, Whole <0.10 W314-CjZ Chocolate/[place] <0.10 04/15/2018 12:42 PM Falls in last [...] Vis Given Vis Pub CVX Tdap 03/07/2015 [employer] SKB BOOSTRIX [id number] Intramuscula r Left Deltoid [...] not specified May 05 201 9 2:06PM Payers Insurance Name Company Name Plan Name Plan Number Policy Number Henry cy Group Number Start Date [facility] [id number] N/ A [place] Medical Assistance [facility] Anyi Velasquez [id number] Friday, 2008 [facility] [id number] 2008 [facility] [id number] 2 [id number] Wednesday, 2010 [facility] Occupational Medicine [id number] Friday, January 27, 2012 BCBS [employer]bs Of [place] [id number] We April 18, 2014 [place] [employer] [id number] N/A Usd 506 USD 506 [id number] N/A BCBS [place] [place] [id number] We February 27, 2015 BCBS [place] [place] [id number] N/ A History of Encounters Visit Date Visit Type Provider 05/05/2018 Office visit Christal Remigio Gamez APR N 03/28/2018 Office visit Sondra Houser PRN 02/22/2018 Office visit Sondra Pinto A PRN 12/23/2017 Office visit Sondra Pinto A PRN 06/24/2017 Laboratory Sondra Pinto A PRN 06/07/2017 Office visit Sondra Houser PRN 05/25/2017 Office visit Sondra Houser PRN 05/04/2017 Office visit Sondra Houser PRN 04/21/2017 Office visit Sondra Houser PRN 05/10/2016 Office visit Alli Iniguez NP 03/28/2016 Office visit Yoli Slade SILVERLIGHT DEVELOPER 12/05/2015 Office visit Mica Sloan DO 04/08/2015 Office visit Daniel Acosta APR N 03/07/2015 Office visit Daniel Acosta APR N 10/23/2014 Office visit Reggie Foy MD 10/16/2014 Office visit Reggie Foy MD 06/07/2014 Office visit Reggie Foy MD 06/04/2014 Office visit Daniel Acosta APR N 05/22/2014 Voided Reggie Foy MD 03/06/2014 Office visit Daniel Acosta APR N 08/01/2013 Office visit Lia pfeiffer SILVERLIGHT DEVELOPER 06/15/2012 Office visit Danilo Cantu MD 06/01/2012 Office visit Amna Marion SILVERLIGHT DEVELOPER 01/27/2012 Office visit Amna Marion SILVERLIGHT DEVELOPER 08/26/2011 Office visit Reggie Foy MD 05/08/2011 Office visit Amna Marion SILVERLIGHT DEVELOPER 04/24/2011 Office visit Danilo Cantu MD 01/30/2011 Office visit Amna Marion SILVERLIGHT DEVELOPER 09/30/2010 Office visit Reggie Foy MD 04/16/2010 Office visit Danilo Cantu MD 02/03/2010 Office visit Danilo Cantu MD 07/17/2009 Office visit Ivania MONDRAGON 01/28/2009 Nurse visit Reggie Foy MD 01/10/2009 Office visit Reggie Foy MD 12/26/2008 Office visit Alexys Schultz MD
--- OUTSIDE RECORDS SUMMARY | 2019-09-12 09:54 | XMS REPORT ---
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 Alcohol Never Tobacco Never smoker History of [...] Reviewed 05/08/2011 12:00 AM Decadron 1 mg ND#[id number] (Eva) Reviewed 05/08/2011 12:00 AM Depo-Medrol 80 mg NDC#[id number] te Reviewed 12/11/2015 12:00 AM Screening mammography, [...] 12:00 AM Phenergan, Up to 50 Mg [facility]#4860-1475-77 Reviewed 06/01/2012 12:00 AM Toradol 60 Mg [facility]#7253-7975-01 Reviewed 06/01/2012 12:00 AM THER/PROPH/DIAG INJ SC/IM [...] Reviewed 03/06/2014 12:00 AM Depo-Medrol 80 mg NDC#[address]-16 Revi ewed 03/06/2014 12:00 AM Decadron, Per 1 Mg NDC# [address]-94 Re viewed 06/04/2014 12:00 AM THER/PROPH/DIAG INJ SC/IM Reviewed 06/04/2014 12:00 AM Depo-Medrol 80 mg NDC#[address]-83 Revi ewed 06/04/2014 12:00 AM Decadron, Per 1 Mg NDC# [address]-89 Re viewed 10/16/2014 12:00 AM THER/PROPH/DIAG INJ SC/IM Reviewed 10/16/2014 12:00 AM Decadron 8 mg NDC# [address]-18 Reviewe d 10/16/2014 12:00 AM Depo-Medrol 80 mg NDC#[address]-08 Revi ewed 10/23/2014 12:00 AM RADEX SPINE [...] pteronyssinus 6.54 D002- IgE D farinae 3.24 C349-TmC Cat Dander 0.16 U082-GmA Dog Dander 0.10 Q161-CmT [place] Grass <0.10 U290-AtY Bluegrass,Thrillkaleida healthy <0.10 A595-OsC Immanuel Grass <0.10 G200-PxU Cockroach,North Korean 0.18 Z297-JaJ Penicilliumchrysogen <0.10 M002- IgE Cladosporiumherbarum <0.10 Y076-UkS Aspergillusfumigatus <0.10 X547-RaH Mucor racemosus <0.10 R664-TeN Alternariaalternata 1.49 V525-QyX Stemphyliumherbarum <0.10 M000-ImC Maple/[place]'S <0.10 B061-VgB [place], White <0.10 Y409-ToF Elm, North Korean <0.10 Q431-EwH [place] <0.10 Y579-LcO Magnus, White 0.11 Q159-YoC Maple LeafSycamore <0.10 O780-DfZ White [place] <0.10 K481-McI Ragweed, Short 23.10 O727-DtG [place] 1.43 W036-OgB Plantain,Belizean 0.11 W011- IgE Thistle, Burundian <0.10 F895-YjR Pigweed, Common <0.10 P043-DqI Sheep [place] <0.10 Class Description COMMENT A398-GzP Milk <0.10 B256-FzM Wheat <0.10 F008- IgE [place] <0.10 K748-AhD Peanut <0.10 W846-IaR Soybean <0.10 S960-HkB Pork <0.10 R447-MkY Beef 0.25 GU72-ThV Food Mix(Seafoods) Negative E751-XxG Egg, Whole <0.10 L612-DrL Chocolate/[place] <0.10 04/15/2018 12:42 PM Falls in last [...] Vis Given Vis Pub CVX Tdap 03/07/2015 [employer] SKB BOOSTRIX [id number] Intramuscula r Left Deltoid [...] Number Start Date [employer]BS [place] [place] [id number] N/ A [place] Medical Assistance Program [facility] [id number] Friday, 2008 [employer] [place] [place] [id number] 2008 [facility] [id number] 2 December [facility] [id number] Wednesday, 2010 [facility] Med Occupational Medicine [id number] Friday, January 27, 2012 BCBS [place] [id number] We dnApril 18, 2014 [employer] Work Comp [employer] [place] [id number] N/A Usd 506 USD [id number] N/A BCBS [place] [id number] We dnFebruary 27, 2015 [employer]BS [place] [id number] N/ A History of Encounters Visit Date Visit Type Provider 03/28/2018 Office visit Sondra Houser PRN 02/22/2018 Office visit Sondra Houser PRN 12/23/2017 Office visit Sondra Houser PRN 06/24/2017 Laboratory Sondra Houser PRN 06/07/2017 Office visit Sondra Houser PRN 05/25/2017 Office visit Sondra Houser PRN 05/04/2017 Office visit Sondra Pinto A PRN 04/21/2017 Office visit Sondra Houser PRN 05/10/2016 Office visit Alli Iniguez AGRICULTURAL MECHANIC 03/28/2016 Office visit Yoli Slade CORNER CUTTER 12/05/2015 Office visit Miac Sloan DO 04/08/2015 Office visit Daniel Acosta APR N 03/07/2015 Office visit Daniel Acosta APR N 10/23/2014 Office visit Reggie Foy MD 10/16/2014 Office visit Reggie Foy MD 06/07/2014 Office visit Reggie Foy MD 06/04/2014 Office visit Daniel Acosta APR N 05/22/2014 Voided Reggie Foy MD 03/06/2014 Office visit Daniel Vizcainoran APR N 08/01/2013 Office visit Lia pfeiffer CORNER CUTTER 06/15/2012 Office visit Danilo Cantu MD 06/01/2012 Office visit Amna Marion CORNER CUTTER 01/27/2012 Office visit Amna Marion CORNER CUTTER 08/26/2011 Office visit Reggie Foy MD 05/08/2011 Office visit Amna Marion CORNER CUTTER 04/24/2011 Office visit Danilo Cantu MD 01/30/2011 Office visit Amna Marion CORNER CUTTER 09/30/2010 Office visit Reggie Foy MD 04/16/2010 Office visit Danilo Cantu MD 02/03/2010 Office visit Danilo Cantu MD 07/17/2009 Office visit Ivania MONDRAGON 01/28/2009 Nurse visit Reggie Foy MD 01/10/2009 Office visit Reggie Foy MD 12/26/2008 Office visit Alexys Schultz MD
--- OUTSIDE RECORDS SUMMARY | 2019-09-12 09:55 | XMS REPORT ---
Author Author Ana Foy [facility] Physicians oup Address [address] [place], [place] [address] Care Team Providers Care Guard Museum Name Role Phone Reggie Foy PCP Unavailable Allergies and Adverse Reactions Name Reaction Notes PENICILLINS hives Plan of Treatment Not available. Medications Active Name Start Date Estimated Completion Date SIG Co mments Zithromax Z-Javier oral tablet 250 mg 10/16/2014 10/26/2014 take 2 tablets (500 mg) by oral route once daily for 1 day then 1 tablet (250 mg) by oral route once daily for 4 days Name Start Date Expiration Date SIG Comments Keflex Oral Capsule 500 mg 07/19/2009 07/26/2009 take 1 capsule (500 mg) by oral route every 12 hours for 7 days Flagyl Oral Tablet 500 mg 09/30/2010 10/05/2010 take 1 tablet (500 mg) by oral route every 8 hours for 5 days Cipro Oral Tablet 500 mg 09/30/2010 10/05/2010 take 1 tablet (500 mg) by oral route every 12 hours for 5 days Zithromax Z-Javier Oral Tablet 250 mg 08/07/2011 08/12/2011 take 2 tablets (500 mg) by oral route once daily for 1 day then 1 tablet (250 mg) by oral route once daily for 4 days Levaquin Oral Tablet 500 mg 08/26/2011 09/09/2011 take 1 tablet (500 mg) by oral route once daily for 7 days benzonatate Oral capsule 200 mg 03/01/2012 03/11/2012 TAKE 1 CAPSULE BY MOUTH THREE TIMES DAILY NEEDED Zithromax Z-Javier Oral tablet 250 mg 06/01/2012 06/06/2012 take 2 tablets (500 mg) by oral route once daily for 1 day then 1 tablet (250 mg) by oral route once daily for 4 days Cipro oral tablet 500 mg 03/06/2014 03/13/2014 take 1 tablet (500 mg) by oral route every 12 hours for 7 days doxycycline hyclate oral capsule 100 mg 06/04/2014 5 take 1 capsule (100 mg) by oral route 2 times per day for 7 days Discontinued Name Start Date Discontinued Date SIG Comments Nystatin Topical Cream 100,000 unit/g 01/30/2011 apply to the affected area(s) by topical route 3 times per day DEJON 28 Oral Tablet 3-20 mg-mcg 02/03/2010 02/07/2010 t mehreen 1 tablet by oral route once daily for 28 days Too expensive Microgestin FE 05/08 (28) Oral Tablet 1-20 mg-mcg 02/07/2010 01/30/2011 take 1 tablet by oral route once daily WelChol Oral Tablet 625 mg 09/30/2010 01/30/2011 take 3 tablets (1,875 mg) by oral route 2 times per day with meals and liquid Medrol (Javier) Oral Tablets, Dose Pack 4 mg 01/30/2011 04/24/2011 take as directed prednisone oral tablet 20 mg 06/04/2014 06/04/2014 Salo e 2 tabs PO x 2 days, then 1 tab PO x 2 days Problem List Not available. 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 Tobacco Never smoker History of Procedures Date Ordered Description Order Status 01/30/2011 12:00 AM X-RAY EXAM SACRUM TAILBONE Reviewed 04/24/2011 12:00 AM CYTOPATH C/V MANUAL Returned 04/24/2011 12:00 AM SPECIMEN HANDLING OFFICE-LAB Reviewed 04/24/2011 12:00 AM CHLAMYDIA CULTURE Returned 04/24/2011 12:00 AM N.GONORRHOEAE DNA AMP PROB Returned 04/24/2011 12:00 AM HIV-1ANTIBODY Returned 04/24/2011 12:00 AM HEPATITIS B SURFACE AG EIA Returned 04/24/2011 12:00 AM HEPATITIS C AB TEST Returned 04/24/2011 12:00 AM SYPHILIS TEST NON-TREP QUAL Returned 05/08/2011 12:00 AM THER/PROPH/DIAG INJ SC/IM Reviewed 07/17/2009 12:00 AM URINE CULTURE/COLONY COUNT Reviewed 07/17/2009 12:00 AM URINE TEST Reviewed 07/17/2009 12:00 AM URINALYSIS AUTO W/O SCOPE Reviewed 04/06/2012 12:00 AM MAMMOGRAM SCREENING Returned 06/01/2012 12:00 AM INFLUENZA A/B AG EIA Returned 06/01/2012 12:00 AM THER/PROPH/DIAG INJ SC/IM Reviewed 06/15/2012 12:00 AM CYTOPATH C/V MANUAL Returned 06/15/2012 12:00 AM SPECIMEN HANDLING OFFICE-LAB Reviewed 08/01/2013 12:00 AM CYTOPATH C/V MANUAL Returned 08/01/2013 12:00 AM SPECIMEN HANDLING OFFICE-LAB Reviewed [...] 03/06/2014 12:00 AM THER/PROPH/DIAG INJ SC/IM Reviewed 06/04/2014 12:00 AM THER/PROPH/DIAG INJ SC/IM Reviewed 10/16/2014 12:00 AM THER/PROPH/DIAG INJ SC/IM Reviewed Results Summary Data and Description Results 07/17/2009 9:36 AM TEST UR NEGATIVE P REGNANCY TEST UR NEGATIVE 01/27/2012 7:35 AM WBC 6.8 RBC 4.84 HGB 13.60 g /dLHCT 40.90 %MCV 85.0 fLMCH 28.10 pgMCHC 33.30 g/dLRDW CV 14.10 %MPV 11.40 fLPLT 241 GLUCOSE 96.0 mg/dLSODIUM 138.0 mmol/LPOTASSIUM 3.70 mmol/LCHLORIDE 106.0 mmol/LCO2 24.0 mmol/LBUN 12.0 mg/dLCREATININE 0.70 mg/dLSGOT/AST 13.0 IU/LSGPT/ALT 16.0 IU/LALK PHOS 75.0 IU/LTOTAL PROTEIN 7.40 g/dLALBUMIN 4.10 g/dLTOTAL BILI 0.40 mg/dLCALCIUM 9.50 mg/dLeGFR 60 TRIGLYCERIDES 211.0 mg/dLCHOLESTEROL 183.0 mg/dLHDL 44.0 mg/dLLDL (CALC) 97.0 mg/dL 01/27/2012 7:40 AM COLOR YELLOW APPEARANCE CLOU DY SPEC GRAV >=1.030 pH 5.5 PROTEIN NEGATIVE GLUCOSE NEGATIVE KETONE NEGATIVE BILIRUBIN NEGATIVE BLOOD NEGATIVE NITRITE NEGATIVE LEUK SCREEN NEGATIVE CASTS/LPF NEGATIVE CRYSTALS 4++++ AMORPH MUCOUS THRDS NEGATIVE BACTERIA NEGATIVE EPITH CELLS FEW SQUAMOUS TRICHOMONAS NEGATIVE YEAST NEGATIVE 06/01/2012 12:00 PM INFLUENZA A & B NO INFLUENZA A OR B DETECTED History Of Immunizations Not available. History of Past Illness Name Date of Onset Comments NO SIGNIFICANT MEDICAL HX GIVEN Acute cystitis Jul 17 2009 9:16AM Menorrhagia Feb 03 2010 2:55PM Family history of malignant neoplasm; genital organs; other Feb 03 2010 2:55PM Menorrhagia Apr 16 2010 10:07AM Menorrhagia Apr 16 2010 9:31AM Colitis Sep 30 2010 10:10AM Sinusitis Sep 30 2010 10:10AM Coccyx pain Jan 30 2011 2:58PM Routine gynecological examination Apr 24 2011 3:16PM [...] 2014 2:23PM Sinusitis Oct 16 2014 10:38AM Payers Insurance Name Company Name Plan Name Plan Number Policy Number Henry cy Group Number Start Date [employer]cbs [employer] [place] [id number] We 2014 [place] Medical Assistance [facility] Anyi lynn Pro [id number] December 26, 200 9 [employer]bs [place] [place] [id number] [facility] [id number] [address] [facility] [id number] Wednesday, 2010 [facility] Occupational Medicine [id number] Friday, January 27, 2012 History of Encounters Visit Date Visit Type Provider 10/16/2014 Office visit Reggie Foy MD 06/07/2014 Office visit Reggie Foy MD 06/04/2014 Office visit Daniel Acosta APR N 05/22/2014 Voided Reggie Foy MD 03/06/2014 Office visit Daniel Acosta APR N 08/01/2013 Office visit Lia pfeiffer FARM EQUIPMENT ENGINE MECHANIC 06/15/2012 Office visit Danilo Cantu MD 06/01/2012 Office visit Amna Marion FARM EQUIPMENT ENGINE MECHANIC 01/27/2012 Office visit Amna Marion FARM EQUIPMENT ENGINE MECHANIC 08/26/2011 Office visit Reggie Foy MD 05/08/2011 Office visit Amna Marion FARM EQUIPMENT ENGINE MECHANIC 04/24/2011 Office visit Danilo Cantu MD 01/30/2011 Office visit Amna Marion FARM EQUIPMENT ENGINE MECHANIC 09/30/2010 Office visit Reggie Foy MD 04/16/2010 Office visit Danilo Cantu MD 02/03/2010 Office visit Danilo Cantu MD 07/17/2009 Office visit Ivania MONDRAGON 01/28/2009 Nurse visit Reggie Foy MD 01/10/2009 Office visit Reggie Foy MD 12/26/2008 Office visit Alexys Schultz MD
--- OUTSIDE RECORDS SUMMARY | 2019-09-12 09:55 | XMS REPORT ---
Author Author Ana Pinto [facility] Physicians oup Address [address] [place], [place] [address] Care Team Providers Care Hotshot Superintendent Name Role Phone Sondra Pinto PCP Sondra Pinto PreferredProvider Allergies and Adverse Reactions Name Reaction Notes PENICILLINS hives Bactrim DS Plan of Treatment Not available. Medications Active Name Start Date Estimated Completion Date SIG Co mments Medrol (Javier) 4 mg oral tablets,dose pack 12/23/2017 12/30/19 18 take 6 today then 5>4>3>2>1 montelukast 10 mg oral tablet 12/29/2017 02/27/2018 ta ke 1 tablet (10 mg) by oral route once daily in the evening for 30 days Name Start Date Expiration Date SIG [...] at bedtime for muscle spasms and headaches Problem List Not available. 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 Alcohol Never Tobacco Never smoker History of [...] Reviewed 05/08/2011 12:00 AM Decadron 1 mg NDC#[id number] (Eva) Reviewed 05/08/2011 12:00 AM Depo-Medrol 80 mg NDC#[id number] te Reviewed 12/11/2015 12:00 AM Screening mammography, [...] 12:00 AM Phenergan, Up to 50 Mg [facility]#1047-0344-60 Reviewed 06/01/2012 12:00 AM Toradol 60 Mg ND#2673-5748-61 Reviewed 06/01/2012 12:00 AM THER/PROPH/DIAG INJ SC/IM [...] Reviewed 03/06/2014 12:00 AM Depo-Medrol 80 mg NDC#[address]-71 Revi ewed 03/06/2014 12:00 AM Decadron, Per 1 Mg ND# [address]-59 Re viewed 06/04/2014 12:00 AM THER/PROPH/DIAG INJ SC/IM Reviewed 06/04/2014 12:00 AM Depo-Medrol 80 mg NDC#[address]-83 Revi ewed 06/04/2014 12:00 AM Decadron, Per 1 Mg NDC# [address]-46 Re viewed 10/16/2014 12:00 AM THER/PROPH/DIAG INJ SC/IM Reviewed 10/16/2014 12:00 AM Decadron 8 mg NDC# [address]-38 Reviewe d 10/16/2014 12:00 AM Depo-Medrol 80 mg NDC#[address]-82 Revi ewed 10/23/2014 12:00 AM RADEX SPINE [...] AA 109 eGFR >60 mL/min/1.73meGFR AA* >60 History Of Immunizations Name Date Admin Mfg Name Mfg Code Trade Name Lot# Route Inj Vis Given Vis Pub CVX Tdap 03/07/2015 GlaxoSmUberseqine SKB BOOSTRIX [id number] Intramuscula r Left Deltoid [...] Acute non-recurrent pansinusitis Dec 23 2017 2:03PM Payers Insurance Name Company Name Plan Name Plan Number Policy Number Henry cy Group Number Start Date BCBS [employer]bs [employer] [place] [id number] N/ A [place] Medical Assistance [facility] lynn [facility] [id number] Friday, 2008 BCBS [employer] [place] [id number] 2008 [facility] [id number] [address] [facility] [id number] Wednesday, 2010 [facility] [address] [facility] Med Occupational Medicine [id number] Friday, January 27, 2012 BCBS [place] [place] [id number] We April 18, 2014 [employer] Work Comp ShoutEm [id number] N/A Usd 506 USD 506 [id number] N/A [employer]BS [place] [place] [id number] We February 27, 2015 BCBS [place] [place] [id number] N/ A History of Encounters Visit Date Visit Type Provider 12/23/2017 Office visit Sondra Houser PRN 06/24/2017 Laboratory Sondra Houser PRN 06/07/2017 Office visit Sondra Houser PRN 05/25/2017 Office visit Sondra Houser PRN 05/04/2017 Office visit Sondra Houser PRN 04/21/2017 Office visit Sondra Houser PRN 05/10/2016 Office visit Alli Iniguez NP 03/28/2016 Office visit Yoli Berlin ACCOUNT SOLUTIONS ANALYST 12/05/2015 Office visit Mica Sloan DO 04/08/2015 Office visit Daniel Vizcainoran APR N 03/07/2015 Office visit Daniel Vizcainoran APR N 10/23/2014 Office visit Reggie Foy MD 10/16/2014 Office visit Reggie Foy MD 06/07/2014 Office visit Reggie Foy MD 06/04/2014 Office visit Daniel Vizcainoran APR N 05/22/2014 Voided Reggie Foy MD 03/06/2014 Office visit Daniel Vizcainoran APR N 08/01/2013 Office visit Lia Franks n ACCOUNT SOLUTIONS ANALYST 06/15/2012 Office visit Danilo Cantu MD 06/01/2012 Office visit Amna Marion ACCOUNT SOLUTIONS ANALYST 01/27/2012 Office visit Amna Marion ACCOUNT SOLUTIONS ANALYST 08/26/2011 Office visit Reggie Foy MD 05/08/2011 Office visit Amna Marion ACCOUNT SOLUTIONS ANALYST 04/24/2011 Office visit Danilo Cantu MD 01/30/2011 Office visit Amna Marion ACCOUNT SOLUTIONS ANALYST 09/30/2010 Office visit Reggie Foy MD 04/16/2010 Office visit Danilo Cantu MD 02/03/2010 Office visit Danilo Cantu MD 07/17/2009 Office visit Ivania MONDRAGON 01/28/2009 Nurse visit Reggie Foy MD 01/10/2009 Office visit Reggie Foy MD 12/26/2008 Office visit Alexys Schultz MD
--- OUTSIDE RECORDS SUMMARY | 2019-09-12 09:55 | XMS REPORT ---
Author Author Ana Pinto [facility] oup Address [address] [place], [place] [address] Care Team Providers Care Network Support Engineer Name Role Phone Sondra Pinto PCP [...] HC BMI BSA BMI Percentile O2 Sat(%) 02/22/2018 3:18:00 PM 128 mmHg 78 mmHg [...] F 258 lbs 66 in 41.64 kg/m2 2.3344 m 97 % 04/21/2017 1:54:00 PM 122 mmHg 84 mmHg 90 bpm 18 rpm 98.8 F 255.375 lbs 66 i n 41.2182 kg/m 2.32 m2 97 % 05/10/2016 3:45:00 PM 138 mmHg 88 mmHg 99 bpm 18 rpm 96.8 F 255 lbs 66 in 41.16 kg/m2 2.3208 m 97 % 03/28/2016 1:16:00 PM 140 mmHg 84 mmHg 106 bpm 18 rpm 100.9 F 259 lbs 66 i n 41.8033 kg/m 2.34 m2 97 % 12/05/2015 10:20:00 AM 152 mmHg 83 mmHg 87 bpm 98.8 F 259 lbs 66 in 41.80 kg/m2 2.339 m 04/08/2015 9:19:00 AM 145 mmHg 90 mmHg 83 bpm 16 rpm 97.6 F 256 lbs 66 in 41.3191 kg/m 2.33 m2 97 % 03/07/2015 7:36:00 PM 144 mmHg 84 mmHg 79 bpm 18 rpm 98.6 F 257.125 lbs 66 in 41.50 kg/m2 2.3305 m 98 % 10/23/2014 9:09:00 AM 160 mmHg 78 mmHg 96 bpm 16 rpm 98.3 F 251 lbs 66 in 40.512 kg/m 2.30 m2 98 % 10/16/2014 10:36:00 AM [...] Comments denies smoking denies alcohol use 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 Alcohol Never Tobacco Never smoker History of [...] Reviewed 05/08/2011 12:00 AM Decadron 1 mg [facility]#[id number] (Eva) Reviewed 05/08/2011 12:00 AM Depo-Medrol 80 mg [facility]#[id number]-Lwjneu te Reviewed 12/11/2015 12:00 AM Screening mammography, [...] 12:00 AM Phenergan, Up to 50 Mg [facility]#9475-1631-27 Reviewed 06/01/2012 12:00 AM Toradol 60 Mg [facility]#1641-8999-90 Reviewed 06/01/2012 12:00 AM THER/PROPH/DIAG INJ SC/IM [...] Reviewed 03/06/2014 12:00 AM Depo-Medrol 80 mg [facility]#[address]-86 Revi ewed 03/06/2014 12:00 AM Decadron, Per 1 Mg NDC# [address]-59 Re viewed 06/04/2014 12:00 AM THER/PROPH/DIAG INJ SC/IM Reviewed 06/04/2014 12:00 AM Depo-Medrol 80 mg NDC#[address]-24 Revi ewed 06/04/2014 12:00 AM Decadron, Per 1 Mg NDC# [address]-12 Re viewed 10/16/2014 12:00 AM THER/PROPH/DIAG INJ SC/IM Reviewed 10/16/2014 12:00 AM Decadron 8 mg NDC# [address]-47 Reviewe d 10/16/2014 12:00 AM Depo-Medrol 80 mg NDC#[address]-05 Revi ewed 10/23/2014 12:00 AM RADEX SPINE [...] [place] (nonalcoholic steatohepatitis) Mar 07 2018 12:35PM Payers Insurance Name Company Name Plan Name Plan Number Policy Number Henry cy Group Number Start Date [employer] [id number] N/ A [place] Medical Assistance [facility] [id number] Friday, 2008 [employer] [place] [id number] 2008 [facility] [id number] 2 December [facility] [id number] Wednesday, 2010 [facility] Med Occupational Medicine [id number] Friday, January 27, 2012 [employer] [place] [place] [id number] We April 18, 2014 [employer] [id number] N/A Usd 506 USD 506 [id number] N/A [employer] [place] [id number] We dnFebruary 27, 2015 [employer] [place] [id number] N/ A History of Encounters Visit Date Visit Type Provider 02/22/2018 Office visit Sondra Houser PRN 12/23/2017 Office visit Sondra Houser PRN 06/24/2017 Laboratory Sondra Houser PRN 06/07/2017 Office visit Sondra Houser PRN 05/25/2017 Office visit Sondra Houser PRN 05/04/2017 Office visit Sondra Houser PRN 04/21/2017 Office visit Sondra Houser PRN 05/10/2016 Office visit Alli Iniguez NP 03/28/2016 Office visit Yoli Berlin WASHING MACHINE STRIPER 12/05/2015 Office visit Mica Solan DO 04/08/2015 Office visit Daniel Vizcainoran APR N 03/07/2015 Office visit Daniel Vizcainoran APR N 10/23/2014 Office visit Reggie Foy MD 10/16/2014 Office visit Reggie Foy MD 06/07/2014 Office visit Reggie Foy MD 06/04/2014 Office visit Daniel Vizcainoran APR N 05/22/2014 Voided Reggie Foy MD 03/06/2014 Office visit Dainel Vizcainoran APR N 08/01/2013 Office visit Lia Franks n WASHING MACHINE STRIPER 06/15/2012 Office visit Danilo Cantu MD 06/01/2012 Office visit Amna Marion WASHING MACHINE STRIPER 01/27/2012 Office visit Amna Marion WASHING MACHINE STRIPER 08/26/2011 Office visit Reggie Foy MD 05/08/2011 Office visit Amna Marion WASHING MACHINE STRIPER 04/24/2011 Office visit Danilo Cantu MD 01/30/2011 Office visit Amna Marion WASHING MACHINE STRIPER 09/30/2010 Office visit Reggie Foy MD 04/16/2010 Office visit Danilo Cantu MD 02/03/2010 Office visit Danilo Cantu MD 07/17/2009 Office visit Ivania MONDRAGON 01/28/2009 Nurse visit Reggie Foy MD 01/10/2009 Office visit Reggie Foy MD 12/26/2008 Office visit Alexys Schultz MD
--- OUTSIDE RECORDS SUMMARY | 2019-09-12 09:56 | XMS REPORT ---
Author Author Ana Iniguez Organization [facility] oup Address [address] [place], [place] [address] Care Team Providers Care Seo Specialist Name Role Phone Alli Iniguez PCP Unavailable Reggie Foy PreferredProvider Unavailable Allergies and Adverse Reactions Name Reaction Notes PENICILLINS hives Plan of Treatment Not available. Medications Active Name Start Date Estimated Completion Date SIG Co mments Lexapro 10 mg oral tablet 12/05/2015 take 1 tablet (10 mg) by oral route once daily nystatin 100,000 unit/gram topical powder 12/05/2015 apply to the affected area(s) by topical route 3 times per day Name Start Date Expiration Date SIG Comments [...] prednisone 20 mg oral tablet 03/28/2016 04/03/2016 Salo e 3 tabs x 2 days; then 2 tabs x 2 days; then 1 tab x 2 days Discontinued Name Start Date Discontinued Date [...] prednisone 20 mg oral tablet 06/04/2014 06/04/2014 Salo e 2 tabs PO x 2 days, then 1 tab PO x 2 days Problem List Not available. 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 Alcohol Never Tobacco Never smoker History of Procedures Date Ordered Description Order Status 03/13/2015 12:00 AM X-RAY EXAM OF KNEE 3 Reviewed 03/07/2015 12:00 AM TDAP VACCINE 7 YRS/> IM Reviewed 03/07/2015 12:00 AM THER/PROPH/DIAG INJ SC/IM Reviewed 01/30/2011 12:00 AM X-RAY EXAM SACRUM [...] Reviewed 05/08/2011 12:00 AM Decadron 1 mg NDC#[id number] (Eva) Reviewed 05/08/2011 12:00 AM Depo-Medrol 80 mg ND#[id number]-Ntfesq te Reviewed 12/11/2015 12:00 AM Screening mammography, bilateral Reviewe d 12/05/2015 12:00 AM SPECIMEN HANDLING OFFICE-LAB Reviewed 12/05/2015 12:00 AM CYTOPATH C/V THIN LAYER Reviewed 07/17/2009 12:00 AM URINE CULTURE/COLONY COUNT Reviewed 07/17/2009 12:00 AM URINE TEST Reviewed 07/17/2009 12:00 AM URINALYSIS AUTO W/O SCOPE Reviewed 04/06/2012 12:00 AM MAMMOGRAM SCREENING Reviewed 06/01/2012 12:00 AM INFLUENZA A/B AG EIA Reviewed 06/01/2012 12:00 AM Phenergan, Up to 50 Mg ND#1238-4294-21 Reviewed 06/01/2012 12:00 AM Toradol 60 Mg ND#5656-6631-00 Reviewed 06/01/2012 12:00 AM THER/PROPH/DIAG INJ SC/IM [...] Reviewed 03/06/2014 12:00 AM Depo-Medrol 80 mg NDC#[address]-56 Revi ewed 03/06/2014 12:00 AM Decadron, Per 1 Mg NDC# [address]-06 Re viewed 06/04/2014 12:00 AM THER/PROPH/DIAG INJ SC/IM Reviewed 06/04/2014 12:00 AM Depo-Medrol 80 mg NDC#[address]-90 Revi ewed 06/04/2014 12:00 AM Decadron, Per 1 Mg NDC# [address]-08 Re viewed 10/16/2014 12:00 AM THER/PROPH/DIAG INJ SC/IM Reviewed 10/16/2014 12:00 AM Decadron 8 mg NDC# [address]-24 Reviewe d 10/16/2014 12:00 AM Depo-Medrol 80 mg NDC#[address]-61 Revi ewed 10/23/2014 12:00 AM RADEX SPINE LUMBOSACRAL 2/3 VIEWS Review ed Results Summary Data and Description Results 07/17/2009 9:36 AM TEST UR NEGATIVE P REGNANCY TEST UR NEGATIVE 01/27/2012 7:35 AM WBC 6.8 RBC 4.84 HGB 13.60 g /dLHCT 40.90 %MCV 85.0 fLMCH 28.10 pgMCHC 33.30 g/dLRDW SD 44 RDW CV 14.10 %MPV 11.40 fLPLT 241 NRBC# 0.00 NRBC% 0.0 GLUCOSE 96.0 mg/dLSODIUM 138.0 mmol/LPOTASSIUM 3.70 mmol/LCHLORIDE 106.0 mmol/LCO2 24.0 mmol/LBUN 12.0 mg/dLCREATININE 0.70 mg/dLSGOT/AST 13.0 IU/LSGPT/ALT 16.0 IU/LALK PHOS 75.0 IU/LTOTAL PROTEIN 7.40 g/dLALBUMIN 4.10 g/dLTOTAL BILI 0.40 mg/dLCALCIUM 9.50 mg/dLAGE 41 GFR NonAA 92 GFR AA 112 eGFR 60 eGFR AA* 60 TRIGLYCERIDES 211.0 mg/dLCHOLESTEROL 183.0 mg/dLHDL 44.0 mg/dLTOT CHOL/HDL 4.2 LDL (CALC) 97.0 mg/dL 01/27/2012 7:40 AM COLOR YELLOW APPEARANCE CLOU DY SPEC GRAV >=1.030 pH 5.5 PROTEIN NEGATIVE GLUCOSE NEGATIVE KETONE NEGATIVE BILIRUBIN NEGATIVE BLOOD NEGATIVE NITRITE NEGATIVE LEUK SCREEN NEGATIVE WBC/HPF NEGATIVE RBC/HPF NEGATIVE CASTS/LPF NEGATIVE CRYSTALS 4++++ AMORPH MUCOUS THRDS NEGATIVE BACTERIA NEGATIVE EPITH CELLS FEW SQUAMOUS TRICHOMONAS NEGATIVE YEAST NEGATIVE 06/01/2012 12:00 PM INFLUENZA A & B NO INFLUENZA A OR B DETECTED History Of Immunizations Name Date Admin Mfg [...] 2016 3:47PM Diarrhea May 10 2016 3:47PM Payers Insurance Name Company Name Plan Name Plan Number Policy Number Henry cy Group Number Start Date BCBS [employer] [place] [id number] We dnFebruary 27, 2015 [place] Medical Assistance [facility] [id number] Friday, 2008 [employer] [place] [id number] 2008 [facility] [id number] 2 December [facility] [id number] Wednesday, 2010 [facility] Med Occupational Medicine [id number] Friday, January 27, 2012 [employer] [place] [place] [id number] We April 18, 2014 [employer] [id number] N/A Usd 506 USD 506 [id number] N/A History of Encounters Visit Date Visit Type Provider 05/10/2016 Office visit Alli Iniguez NP 03/28/2016 Office visit Yoli Slade TRAVEL WRITER 12/05/2015 Office visit Mica Sloan DO 04/08/2015 Office visit Daniel Acosta APR N 03/07/2015 Office visit Daniel Acosta APR N 10/23/2014 Office visit Reggie Foy MD 10/16/2014 Office visit Reggie Foy MD 06/07/2014 Office visit Reggie Foy MD 06/04/2014 Office visit Daniel Acosta APR N 05/22/2014 Voided Reggie Foy MD 03/06/2014 Office visit Daniel Acosta APR N 08/01/2013 Office visit Lia pfeiffer TRAVEL WRITER 06/15/2012 Office visit Danilo Cantu MD 06/01/2012 Office visit Amna Marion TRAVEL WRITER 01/27/2012 Office visit Amna Marion TRAVEL WRITER 08/26/2011 Office visit Reggie Foy MD 05/08/2011 Office visit Amna Marion TRAVEL WRITER 04/24/2011 Office visit Danilo Cantu MD 01/30/2011 Office visit Amna Marion TRAVEL WRITER 09/30/2010 Office visit Reggie Foy MD 04/16/2010 Office visit Danilo Cantu MD 02/03/2010 Office visit Danilo Cantu MD 07/17/2009 Office visit Ivania MONDRAGON 01/28/2009 Nurse visit Reggie Foy MD 01/10/2009 Office visit Reggie Foy MD 12/26/2008 Office visit Alexys Schultz MD
--- OUTSIDE RECORDS SUMMARY | 2019-09-12 09:56 | XMS REPORT ---
Author Author Ana Slade [facility] oup Address [address] [facility] [address] [address] [place], [place] [address] Care Team Providers Care Currency Examiner Name Role Phone Yoli Slade PCP Unavailable Reggie Foy PreferredProvider Unavailable Allergies [...] by topical route 3 times per day azithromycin 250 mg oral tablet 03/28/2016 04/02/2016 take 2 tablets (500 mg) by oral route once daily for 1 day then 1 tablet (250 mg) by oral route once daily for 4 days prednisone 20 mg oral tablet 03/28/2016 04/03/2016 Salo e 3 tabs x 2 days; then 2 tabs x 2 days; then 1 tab x 2 days Name Start Date Expiration Date SIG [...] the morning and evening for 30 days Discontinued Name Start Date Discontinued Date [...] HC BMI BSA BMI Percentile O2 Sat(%) 03/28/2016 1:16:00 PM 140 mmHg 84 mmHg [...] Comments denies smoking denies alcohol use 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 Alcohol Never Tobacco Never smoker History of [...] Reviewed 05/08/2011 12:00 AM Decadron 1 mg ND#[id number] (Eva) Reviewed 05/08/2011 12:00 AM Depo-Medrol 80 mg ND#[id number]-Ryacya te Reviewed 12/11/2015 12:00 AM Screening mammography, [...] 12:00 AM Phenergan, Up to 50 Mg [facility]#9672-6978-07 Reviewed 06/01/2012 12:00 AM Toradol 60 Mg [facility]#2338-5292-72 Reviewed 06/01/2012 12:00 AM THER/PROPH/DIAG INJ SC/IM [...] Reviewed 03/06/2014 12:00 AM Depo-Medrol 80 mg NDC#[address]-33 Revi ewed 03/06/2014 12:00 AM Decadron, Per 1 Mg NDC# [address]-64 Re viewed 06/04/2014 12:00 AM THER/PROPH/DIAG INJ SC/IM Reviewed 06/04/2014 12:00 AM Depo-Medrol 80 mg NDC#[address]-73 Revi ewed 06/04/2014 12:00 AM Decadron, Per 1 Mg NDC# [address]-07 Re viewed 10/16/2014 12:00 AM THER/PROPH/DIAG INJ SC/IM Reviewed 10/16/2014 12:00 AM Decadron 8 mg NDC# [address]-00 Reviewe d 10/16/2014 12:00 AM Depo-Medrol 80 mg NDC#[address]-49 Revi ewed 10/23/2014 12:00 AM RADEX SPINE [...] Upper respiratory infection Mar 28 2016 1:19PM Payers Insurance Name Company Name Plan Name Plan Number Policy Number Henry cy Group Number Start Date [employer] [place] [id number] We 2015 [place] Medical Assistance [facility] [id number] Friday, 2008 [employer] [place] [id number] 2008 [facility] [id number] 2 December [facility] [id number] Wednesday, 2010 [facility] Med Occupational Medicine [id number] Friday, January 27, 2012 [employer]BS [place] [id number] We April 18, 2014 [employer] Work [employer] [id number] N/A Usd 506 USD 506 [id number] N/A History of Encounters Visit Date Visit Type Provider 03/28/2016 Office visit Yoli Slade STRATEGIC MARKETING ASSOCIATE 12/05/2015 Office visit Mica Sloan DO 04/08/2015 Office visit Daniel Acosta APR N 03/07/2015 Office visit Daniel Acosta APR N 10/23/2014 Office visit Reggie Foy MD 10/16/2014 Office visit Reggie Foy MD 06/07/2014 Office visit Reggie Foy MD 06/04/2014 Office visit Daniel Acosta APR N 05/22/2014 Voided Reggie Foy MD 03/06/2014 Office visit Daniel Acosta APR N 08/01/2013 Office visit Lia pfeiffer STRATEGIC MARKETING ASSOCIATE 06/15/2012 Office visit Danilo Cantu MD 06/01/2012 Office visit Amna Marion STRATEGIC MARKETING ASSOCIATE 01/27/2012 Office visit Amna Marion STRATEGIC MARKETING ASSOCIATE 08/26/2011 Office visit Reggie Foy MD 05/08/2011 Office visit Amna Marion STRATEGIC MARKETING ASSOCIATE 04/24/2011 Office visit Danilo Cantu MD 01/30/2011 Office visit Amna Marion STRATEGIC MARKETING ASSOCIATE 09/30/2010 Office visit Reggie Foy MD 04/16/2010 Office visit Danilo Cantu MD 02/03/2010 Office visit Danilo Cantu MD 07/17/2009 Office visit Ivania MONDRAGON 01/28/2009 Nurse visit Reggie Foy MD 01/10/2009 Office visit Reggie Foy MD 12/26/2008 Office visit Alexys Schultz MD
--- OUTSIDE RECORDS SUMMARY | 2019-09-12 09:56 | XMS REPORT ---
Author Author Ana Acosta [facility] Address [address] [address] [address] [place], [place] [address] Care Team Providers Care Facilities Clerk Name Role Phone Daniel Acosta PCP Allergies and Adverse Reactions Name Reaction Notes PENICILLINS hives Plan of Treatment Not available. 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 Alcohol Never Tobacco Never smoker History of Procedures Date Ordered Description Order Status 03/13/2015 12:00 AM X-RAY EXAM OF KNEE 3 Returned 03/07/2015 12:00 AM TDAP VACCINE 7 YRS/> [...] Reviewed 05/08/2011 12:00 AM Decadron 1 mg NDC#[id number] (Eva) Reviewed 05/08/2011 12:00 AM Depo-Medrol 80 mg NDC#[id number]-Ulsqxv te Reviewed 07/17/2009 12:00 AM URINE CULTURE/COLONY COUNT Reviewed 07/17/2009 12:00 AM URINE TEST Reviewed 07/17/2009 12:00 AM URINALYSIS AUTO W/O SCOPE Reviewed 04/06/2012 12:00 AM MAMMOGRAM SCREENING Returned 06/01/2012 12:00 AM INFLUENZA A/B AG EIA Returned 06/01/2012 12:00 AM Phenergan, Up to 50 Mg NDC#1001-7077-29 Reviewed 06/01/2012 12:00 AM Toradol 60 Mg ND#1424-3410-56 Reviewed 06/01/2012 12:00 AM THER/PROPH/DIAG INJ SC/IM [...] Reviewed 03/06/2014 12:00 AM Depo-Medrol 80 mg NDC#[address]-68 Revi ewed 03/06/2014 12:00 AM Decadron, Per 1 Mg NDC# [address]-32 Re viewed 06/04/2014 12:00 AM THER/PROPH/DIAG INJ SC/IM Reviewed 06/04/2014 12:00 AM Depo-Medrol 80 mg NDC#[address]-65 Revi ewed 06/04/2014 12:00 AM Decadron, Per 1 Mg NDC# [address]-86 Re viewed 10/16/2014 12:00 AM THER/PROPH/DIAG INJ SC/IM Reviewed 10/16/2014 12:00 AM Decadron 8 mg NDC# [address]-33 Reviewe d 10/16/2014 12:00 AM Depo-Medrol 80 mg NDC#[address]-47 Revi ewed 10/23/2014 12:00 AM RADEX SPINE [...] DETECTED History Of Immunizations Name Date Admin [facility] Name [facility] Code Trade Name Lot# Route Inj Vis [...] 7:38PM Pre-employment examination Apr 08 2015 9:21AM Payers Insurance Name Company Name Plan Name Plan Number Policy Number Henry cy Group Number Start Date Usd 506 USD 506 [id number] N/A [place] Medical Assistance [facility] tan Pro [id number] December 26, 9 [facility] [id number] 2008 [facility] [id number] 2 December [facility] [id number] Wednesday, 2010 [facility] Med Occupational Medicine [id number] Friday, January 27, 2012 Bcbs Bcbs [facility] [id number] April 18, 2014 [employer] Work [employer] [id number] N/A History of Encounters Visit Date Visit Type Provider 04/08/2015 Office visit Daniel Acosta APR N 03/07/2015 Office visit Daniel Acosta APR N 10/23/2014 Office visit Reggie Foy MD 10/16/2014 Office visit Reggie Foy MD 06/07/2014 Office visit Reggie Foy MD 06/04/2014 Office visit Daniel Acosta APR N 05/22/2014 Voided Reggie Foy MD 03/06/2014 Office visit Daniel Acosta APR N 08/01/2013 Office visit Lia pfeiffer EXECUTIVE COMPENSATION ANALYST 06/15/2012 Office visit Danilo Cantu MD 06/01/2012 Office visit Amna Marion EXECUTIVE COMPENSATION ANALYST 01/27/2012 Office visit Amna Marion EXECUTIVE COMPENSATION ANALYST 08/26/2011 Office visit Reggie Foy MD 05/08/2011 Office visit Amna Marion EXECUTIVE COMPENSATION ANALYST 04/24/2011 Office visit Danilo Cantu MD 01/30/2011 Office visit Amna Marion EXECUTIVE COMPENSATION ANALYST 09/30/2010 Office visit Reggie Foy MD 04/16/2010 Office visit Danilo Cantu MD 02/03/2010 Office visit Danilo Cantu MD 07/17/2009 Office visit Ivania MONDRAGON 01/28/2009 Nurse visit Reggie Foy MD 01/10/2009 Office visit Reggie Foy MD 12/26/2008 Office visit Alexys Schultz MD
--- OUTSIDE RECORDS SUMMARY | 2019-09-12 09:56 | XMS REPORT ---
Author Author Ana Sloan Organization [facility] o[facility] Address [address] [place], [place] [address] Care Team Providers Care Tire Builder Heavy Service Name Role Phone Mica Sloan PCP Unavailable Allergies and Adverse Reactions Name [...] HC BMI BSA BMI Percentile O2 Sat(%) 12/05/2015 10:20:00 AM 152 mmHg 83 mmHg [...] Comments denies smoking denies alcohol use Children Drier's Alcohol Never Tobacco Never smoker History of [...] Reviewed 05/08/2011 12:00 AM Decadron 1 mg NDC#[id number] (Eva) Reviewed 05/08/2011 12:00 AM Depo-Medrol 80 mg NDC#[id number]-Eggcen te Reviewed 07/17/2009 12:00 AM URINE CULTURE/COLONY COUNT Reviewed 07/17/2009 12:00 AM URINE TEST Reviewed 07/17/2009 12:00 AM URINALYSIS AUTO W/O SCOPE Reviewed 04/06/2012 12:00 AM MAMMOGRAM SCREENING Returned 06/01/2012 12:00 AM INFLUENZA A/B AG EIA Returned 06/01/2012 12:00 AM Phenergan, Up to 50 Mg [facility]#0326-2085-92 Reviewed 06/01/2012 12:00 AM Toradol 60 Mg ND#0563-8858-59 Reviewed 06/01/2012 12:00 AM THER/PROPH/DIAG INJ SC/IM [...] Reviewed 03/06/2014 12:00 AM Depo-Medrol 80 mg NDC#[address]-97 Revi ewed 03/06/2014 12:00 AM Decadron, Per 1 Mg NDC# [address]-09 Re viewed 06/04/2014 12:00 AM THER/PROPH/DIAG INJ SC/IM Reviewed 06/04/2014 12:00 AM Depo-Medrol 80 mg NDC#[address]-50 Revi ewed 06/04/2014 12:00 AM Decadron, Per 1 Mg NDC# [address]-68 Re viewed 10/16/2014 12:00 AM THER/PROPH/DIAG INJ SC/IM Reviewed 10/16/2014 12:00 AM Decadron 8 mg NDC# [address]-11 Reviewe d 10/16/2014 12:00 AM Depo-Medrol 80 mg NDC#[address]-76 Revi ewed 10/23/2014 12:00 AM RADEX SPINE [...] DETECTED History Of Immunizations Name Date Admin [facility] Name Mf Code Trade Name Lot# Route Inj Vis [...] breast cancer Dec 04 2 016 10:34AM Payers Insurance Name Company Name Plan Name Plan Number Policy Number Henry cy Group Number Start Date BCBS [employer] [place] [id number] We 2015 [place] Medical Assistance [facility] [id number] Friday, 2008 BCBS [place] [place] [id number] 2008 [facility] [id number] 2 December [facility] [id number] Wednesday, 2010 [facility] Med Occupational Medicine [id number] Friday, January 27, 2012 BCBS [place] [id number] We April 18, 2014 [employer] Work Comp [employer] [id number] N/A Usd 506 USD 506 [id number] N/A History of Encounters Visit Date Visit Type Provider 12/05/2015 Office visit Mica Sloan DO 04/08/2015 Office visit Daniel Vizcainoran APR N 03/07/2015 Office visit Daniel Acosta APR N 10/23/2014 Office visit Reggie Foy MD 10/16/2014 Office visit Reggie Foy MD 06/07/2014 Office visit Reggie Foy MD 06/04/2014 Office visit Daniel Acosta APR N 05/22/2014 Voided Reggie Foy MD 03/06/2014 Office visit Daniel Acosta APR N 08/01/2013 Office visit Lia pfeiffer SENIOR COST ACCOUNTANT 06/15/2012 Office visit Danilo Cantu MD 06/01/2012 Office visit Amna Marion SENIOR COST ACCOUNTANT 01/27/2012 Office visit Amna Marion SENIOR COST ACCOUNTANT 08/26/2011 Office visit Reggie Foy MD 05/08/2011 Office visit Amna Marion SENIOR COST ACCOUNTANT 04/24/2011 Office visit Danilo Cantu MD 01/30/2011 Office visit Amna Marion SENIOR COST ACCOUNTANT 09/30/2010 Office visit Reggie Foy MD 04/16/2010 Office visit Danilo Cantu MD 02/03/2010 Office visit Danilo Cantu MD 07/17/2009 Office visit Ivania MONDRAGON 01/28/2009 Nurse visit Reggie Foy MD 01/10/2009 Office visit Reggie Foy MD 12/26/2008 Office visit Alexys Schultz MD
--- OUTSIDE RECORDS SUMMARY | 2019-09-12 09:57 | XMS REPORT ---
Author Author Ana Pinto [facility] Address [address] [place], [place] [address] Care Team Providers Care Drywall Metal Stud Worker Name Role Phone Sondra Pinto PCP Sondra Pinto PreferredProvider Allergies and Adverse Reactions Name Reaction Notes PENICILLINS hives Plan of Treatment Planned Activity Comments Planned Date Planned Time Plan/Goal LIPID PANEL 06/24/2017 12:00 AM COMPREHENSIVE METABOLIC PANEL 06/24/2017 12:00 AM Medications Active Name Start Date Estimated Completion Date SIG Co mments montelukast 10 mg oral tablet 05/25/2017 07/24/2017 ta ke 1 tablet (10 mg) by [...] tablets,dose pack 06/04/2017 take as directed 6<5<4,3<2,>1 Discontinued Name Start Date Discontinued Date SIG [...] HC BMI BSA BMI Percentile O2 Sat(%) 06/07/2017 9:00:00 AM 124 mmHg 74 mmHg [...] Comments denies smoking denies alcohol use Children 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 Alcohol Never Tobacco Never smoker History of [...] Reviewed 05/08/2011 12:00 AM Decadron 1 mg ND#[id number] (Eva) Reviewed 05/08/2011 12:00 AM Depo-Medrol 80 mg ND#[id number]-Buglot te Reviewed 12/11/2015 12:00 AM Screening mammography, [...] Reviewed 06/07/2017 12:00 AM MAMMOGRAPHY SCREENING, DIGITAL Returned 06/24/2017 12:00 AM ROUTINE VENIPUNCTURE Reviewed 06/24/2017 12:00 AM COMPLETE CBC W/AUTO DIFF WBC Returned 06/01/2012 12:00 AM INFLUENZA A/B AG EIA Reviewed 06/01/2012 12:00 AM Phenergan, Up to 50 Mg [facility]#7394-9562-90 Reviewed 06/01/2012 12:00 AM Toradol 60 Mg ND#6876-9702-93 Reviewed 06/01/2012 12:00 AM THER/PROPH/DIAG INJ SC/IM [...] Reviewed 03/06/2014 12:00 AM Depo-Medrol 80 mg NDC#[address]-63 Revi ewed 03/06/2014 12:00 AM Decadron, Per 1 Mg NDC# [address]-87 Re viewed 06/04/2014 12:00 AM THER/PROPH/DIAG INJ SC/IM Reviewed 06/04/2014 12:00 AM Depo-Medrol 80 mg NDC#[address]-53 Revi ewed 06/04/2014 12:00 AM Decadron, Per 1 Mg NDC# [address]-41 Re viewed 10/16/2014 12:00 AM THER/PROPH/DIAG INJ SC/IM Reviewed 10/16/2014 12:00 AM Decadron 8 mg NDC# [address]-14 Reviewe d 10/16/2014 12:00 AM Depo-Medrol 80 mg NDC#[address]-82 Revi ewed 10/23/2014 12:00 AM RADEX SPINE LUMBOSACRAL 2/3 VIEWS Review ed Results Summary Date and Description Results 07/17/2009 9:36 AM TEST UR NEGATIVE P REGNANCY TEST UR NEGATIVE 06/01/2012 12:00 PM INFLUENZA A & B NO INFLUENZA A OR B DETECTED 04/21/2017 2:24 PM Influenza A negative Influen za B negative History Of Immunizations Name Date Admin Mfg Name Mfg Code Trade Name Lot# Route Inj Vis Given Vis Pub CVX Tdap 03/07/2015 Friendsee SKB BOOSTRIX [id number] Intramuscula r Left Deltoid [...] general medical exam Jun 24 2017 7:56AM Payers Insurance Name Company Name Plan Name Plan Number Policy Number Henry cy Group Number Start Date BCBS [place] [id number] N/ A [place] Medical [facility] [id number] Friday, 2008 BCBS [place] [id number] 2008 [facility] [id number] 2 December [facility] [id number] Wednesday, 2010 [facility] Occupational Medicine [id number] Friday, January 27, 2012 BCBS [place] [id number] We April 18, 2014 Shirley Mae's Work Comp Shirley Mae's [id number] N/A Usd 506 USD 506 [id number] N/A BCBS [place] [id number] We February 27, 2015 BCBS [place] [id number] N/ A History of Encounters Visit Date Visit Type Provider 06/24/2017 Laboratory Sondra Houser PRN 06/07/2017 Office visit Sondra Houser PRN 05/25/2017 Office visit Sondra Houser PRN 05/04/2017 Office visit Sondra Houser PRN 04/21/2017 Office visit Sondra Houser PRN 05/10/2016 Office visit Alli Iniguez BERRY PICKER MACHINE OPERATOR 03/28/2016 Office visit Yoli Berlin SENIOR SCIENTIST 12/05/2015 Office visit Mica Sloan DO 04/08/2015 Office visit Daniel Vizcainoran APR N 03/07/2015 Office visit Daniel Vizcainoran APR N 10/23/2014 Office visit Reggie Foy MD 10/16/2014 Office visit Reggie Foy MD 06/07/2014 Office visit Reggie Foy MD 06/04/2014 Office visit Daniel Vizcainoran APR N 05/22/2014 Voided Reggie Foy MD 03/06/2014 Office visit Daniel Vizcainoran APR N 08/01/2013 Office visit Lia pfeiffer SENIOR SCIENTIST 06/15/2012 Office visit Danilo Cantu MD 06/01/2012 Office visit Amna Marion SENIOR SCIENTIST 01/27/2012 Office visit Amna Marion SENIOR SCIENTIST 08/26/2011 Office visit Reggie Foy MD 05/08/2011 Office visit Amna Marion SENIOR SCIENTIST 04/24/2011 Office visit Danilo Cantu MD 01/30/2011 Office visit Amna Marion SENIOR SCIENTIST 09/30/2010 Office visit Reggie Foy MD 04/16/2010 Office visit Danilo Cantu MD 02/03/2010 Office visit Danilo Cantu MD 07/17/2009 Office visit Ivania MONDRAGON 01/28/2009 Nurse visit Reggie Foy MD 01/10/2009 Office visit Reggie Foy MD 12/26/2008 Office visit Alexys Schultz MD
--- OUTSIDE RECORDS SUMMARY | 2019-09-12 09:57 | XMS REPORT ---
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 Alcohol Never Tobacco Never smoker History [...] Reviewed 05/08/2011 12:00 AM Decadron 1 mg ND#[id number] (Eva) Reviewed 05/08/2011 12:00 AM Depo-Medrol 80 mg ND#[id number]-Gbifwu te Reviewed 12/11/2015 12:00 AM Screening mammography, [...] 12:00 AM Phenergan, Up to 50 Mg ND#3618-0647-47 Reviewed 06/01/2012 12:00 AM Toradol 60 Mg ND#8009-7967-73 Reviewed 06/01/2012 12:00 AM THER/PROPH/DIAG INJ SC/IM [...] Reviewed 03/06/2014 12:00 AM Depo-Medrol 80 mg NDC#[address]-22 Revi ewed 03/06/2014 12:00 AM Decadron, Per 1 Mg NDC# [address]-36 Re viewed 06/04/2014 12:00 AM THER/PROPH/DIAG INJ SC/IM Reviewed 06/04/2014 12:00 AM Depo-Medrol 80 mg NDC#[address]-82 Revi ewed 06/04/2014 12:00 AM Decadron, Per 1 Mg NDC# [address]-03 Re viewed 10/16/2014 12:00 AM THER/PROPH/DIAG INJ SC/IM Reviewed 10/16/2014 12:00 AM Decadron 8 mg NDC# [address]-48 Reviewe d 10/16/2014 12:00 AM Depo-Medrol 80 mg NDC#[address]-20 Revi ewed 10/23/2014 12:00 AM RADEX SPINE [...] Vis Given Vis Pub CVX Tdap 03/07/2015 Gl[employer] SKB BOOSTRIX [id number] Intramuscula r Left Deltoid [...] Number Start Date BCBS [employer] [place] [id number] N/ A [place] Medical Assistance [facility] Anyioliverio Caldwell [id number] Friday, 2008 BCBS [place] [id number] 2008 [facility] [id number] 2 December [facility] [id number] Wednesday, 2010 [facility] Occupational Medicine [id number] Friday, January 27, 2012 BCBS [place] [id number] We April 18, 2014 [employer] Work Comp ub[employer]rate [id number] N/A Usd 506 USD 506 [id number] N/A BCBS [place] [place] [id number] We February 27, 2015 BCBS [place] [place] [id number] N/ A History of Encounters Visit Date Visit Type Provider 06/24/2017 Laboratory Sondra GillSally Houser PRN 06/07/2017 Office visit Sondra GillSally Houser PRN 05/25/2017 Office visit Sondra GillSally Pinto A PRN 05/04/2017 Office visit Sondra GillSally Houser PRN 04/21/2017 Office visit Sondra GillSally Houser PRN 05/10/2016 Office visit Alli Iniguez NP 03/28/2016 Office visit Yoli Slade FARM MANAGEMENT ADVISER 12/05/2015 Office visit Mica Sloan DO 04/08/2015 Office visit Daniel Acosta APR N 03/07/2015 Office visit Daniel Acosta APR N 10/23/2014 Office visit Reggie Foy MD 10/16/2014 Office visit Reggie Foy MD 06/07/2014 Office visit Reggie Foy MD 06/04/2014 Office visit Daniel Acosta APR N 05/22/2014 Voided Reggie Foy MD 03/06/2014 Office visit Daniel Acosta APR N 08/01/2013 Office visit Lia pfeiffer FARM MANAGEMENT ADVISER 06/15/2012 Office visit Danilo Cantu MD 06/01/2012 Office visit Amna Marion FARM MANAGEMENT ADVISER 01/27/2012 Office visit Amna Marion APRN 08/26/2011 Office visit Reggie Foy MD 05/08/2011 Office visit Amna Marion APRN 04/24/2011 Office visit Danilo Cantu MD 01/30/2011 Office visit Amna Marion FARM MANAGEMENT ADVISER 09/30/2010 Office visit Reggie Foy MD 04/16/2010 Office visit Danilo Cantu MD 02/03/2010 Office visit Danilo Cantu MD 07/17/2009 Office visit Ivania MONDRAGON 01/28/2009 Nurse visit Reggie Foy MD 01/10/2009 Office visit Reggie Foy MD 12/26/2008 Office visit Alexys Schultz MD
--- OUTSIDE RECORDS SUMMARY | 2019-09-12 09:57 | XMS REPORT ---
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 Alcohol Tobacco Never smoker History of Procedures [...] 06/04/2014 12:00 AM THER/PROPH/DIAG INJ SC/IM Reviewed Results [...] Group Number Start Date Bcbs [place] [place] [id number] We [facility] [id number] December 26, 200 9 Bcbs [place] [place] [id number] 2008 [facility] [id number] 2 December [facility] [id number] Wednesday, 2010 [facility] Occupational Medicine [id number] Friday, January 27, 2012 History of Encounters Visit Date Visit Type Provider 10/16/2014 Office visit Reggie Foy MD 06/07/2014 Office visit Reggie Foy MD 06/04/2014 Office visit Daniel Acosta APR N 05/22/2014 Voided Reggie Foy MD 03/06/2014 Office visit Daniel Acosta APR N 08/01/2013 Office visit Lia pfeiffer CHUCKING MACHINE SET UP OPERATOR TOOL 06/15/2012 Office visit Danilo Cantu MD 06/01/2012 Office visit Amna Marion CHUCKING MACHINE SET UP OPERATOR TOOL 01/27/2012 Office visit Amna Marion CHUCKING MACHINE SET UP OPERATOR TOOL 08/26/2011 Office visit Reggie Foy MD 05/08/2011 Office visit Amna Marion CHUCKING MACHINE SET UP OPERATOR TOOL 04/24/2011 Office visit Danilo Cantu MD 01/30/2011 Office visit Amna Marion CHUCKING MACHINE SET UP OPERATOR TOOL 09/30/2010 Office visit Reggie Foy MD 04/16/2010 Office visit Danilo Cantu MD 02/03/2010 Office visit Danilo Cantu MD 07/17/2009 Office visit Ivania MONDRAGON 01/28/2009 Nurse visit Reggie Foy MD 01/10/2009 Office visit Reggie Foy MD 12/26/2008 Office visit Alexys Schultz MD
--- OUTSIDE RECORDS SUMMARY | 2019-09-12 09:57 | XMS REPORT ---
Author Author Ana Pinto [facility] Address [address] [place], [place] [address] Care Team Providers Care Occupational Therapy Manager Name Role Phone Sondra Pinto PCP Sondra Pinto PreferredProvider Allergies and Adverse Reactions Name Reaction Notes PENICILLINS hives Plan of Treatment Not available. Medications Active Name Start Date Estimated Completion Date SIG Co mments Vibramycin 100 mg oral capsule 05/25/2017 06/04/2017 1 CAP BID FOR 10 DAYS Symbicort 160-4.5 mcg/actuation inhalation HFA aerosol inhal er 05/25/2017 06/24/2017 inhale1 puff by inhalation route 4 times per day AND THEN RINSE THROAT montelukast 10 mg oral tablet 05/25/2017 07/24/2017 [...] 20 mg oral tablet 03/28/2016 04/03/2016 Danyelle durham 3 tabs x 2 days; then 2 tabs x 2 days; then 1 tab x 2 days Discontinued Name Start Date Discontinued Date SIG Comments nystatin 100,000 unit/gram topical cream 011 apply to the affected area(s) by topical route 3 times per day DEJON (28) 3-0.02 mg oral tablet 02/03/2010 02/07/2010 t mehrene 1 tablet by oral route once daily for 28 days Too expensive Microgestin FE 05/08 (28) 1 mg-20 mcg (21)/75 mg (7) oral tab let 02/07/2010 01/30/2011 take 1 tablet by oral route once daily WelChol 625 mg oral tablet 09/30/2010 01/30/2011 take 3 tablets (1,875 mg) by oral route 2 times per day with meals and liquid Medrol (Jaiver) 4 mg oral tablets,dose pack 01/30/2011 04/24/2011 [...] cyclobenzaprine 10 mg oral tablet 05/04/2017 05/25/2017 1 to 1 tablet at bedtime for muscle spasms and headaches Problem List Not available. 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#[id number] (Eva) Reviewed 05/08/2011 12:00 AM Depo-Medrol [address] [facility]#[id number]-Whxybs te Reviewed 12/11/2015 12:00 AM Screening mammography, [...] A/B AG EIA Reviewed 06/01/2012 12:00 AM INFLUENZA A/B AG EIA Reviewed 06/01/2012 12:00 AM Phenergan, Up to [address] [facility]#5180-4740-99 Reviewed 06/01/2012 12:00 AM Toradol [address] [facility]#2923-3161-95 Reviewed 06/01/2012 12:00 AM THER/PROPH/DIAG INJ SC/IM [...] Reviewed 03/06/2014 12:00 AM Depo-Medrol 80 mg NDC#[address]-36 Revi ewed 03/06/2014 12:00 AM Decadron, Per 1 Mg NDC# [address]-72 Re viewed 06/04/2014 12:00 AM THER/PROPH/DIAG INJ SC/IM Reviewed 06/04/2014 12:00 AM Depo-Medrol 80 mg NDC#[address]-43 Revi ewed 06/04/2014 12:00 AM Decadron, Per 1 Mg NDC# [address]-82 Re viewed 10/16/2014 12:00 AM THER/PROPH/DIAG INJ SC/IM Reviewed 10/16/2014 12:00 AM Decadron 8 mg NDC# [address]-55 Reviewe d 10/16/2014 12:00 AM Depo-Medrol 80 mg NDC#[address]-93 Revi ewed 10/23/2014 12:00 AM RADEX SPINE [...] Vis Given Vis Pub CVX Tdap 03/07/2015 GlaxoSmEGTine SKB BOOSTRIX [id number] Intramuscula r Left Deltoid [...] tube disorder, bilateral May 25 2017 1:47PM Payers Insurance Name Company Name Plan Name Plan Number Policy Number Henry cy Group Number Start Date BCBS [facility] [id number] N/ A [place] Medical Assistance [facility] Eva [id number] Friday, 2008 [facility] [id number] 2008 [facility] Children[facility] [id number] 2 December [facility] [id number] Wednesday, 2010 [facility] Occupational Medicine [id number] Friday, January 27, 2012 BCBS [employer] [place] [id number] We April 18, 2014 [employer] Work [employer] [id number] N/A Usd 506 USD 506 [id number] N/A BCBS [place] [place] [id number] We February 27, 2015 BCBS [place] [place] [id number] N/ A History of Encounters Visit Date Visit Type Provider 05/25/2017 Office visit Sondra Houser PRN 05/04/2017 Office visit Sondra Houser PRN 04/21/2017 Office visit Sondra Houser PRN 05/10/2016 Office visit Alli Iniguez NP 03/28/2016 Office visit Yoli Slade BINGO CALLER 12/05/2015 Office visit Mica Sloan DO 04/08/2015 Office visit Daniel Acosta APR N 03/07/2015 Office visit Daniel Acosta APR N 10/23/2014 Office visit Reggie Foy MD 10/16/2014 Office visit Reggie Foy MD 06/07/2014 Office visit Reggie Foy MD 06/04/2014 Office visit Daniel Acosta APR N 05/22/2014 Voided Reggie Foy MD 03/06/2014 Office visit Daniel Acosta APR N 08/01/2013 Office visit Lia pfeiffer BINGO CALLER 06/15/2012 Office visit Danilo Cantu MD 06/01/2012 Office visit Amna Marion BINGO CALLER 01/27/2012 Office visit Amna Marion BINGO CALLER 08/26/2011 Office visit Reggie Foy MD 05/08/2011 Office visit Amna Marion BINGO CALLER 04/24/2011 Office visit Danilo Cantu MD 01/30/2011 Office visit Amna Marion BINGO CALLER 09/30/2010 Office visit Reggie Foy MD 04/16/2010 Office visit Danilo Cantu MD 02/03/2010 Office visit Danilo Cantu MD 07/17/2009 Office visit Ivania MONDRAGON 01/28/2009 Nurse visit Reggie Foy MD 01/10/2009 Office visit Reggie Foy MD 12/26/2008 Office visit Alexys Schultz MD
--- OUTSIDE RECORDS SUMMARY | 2019-09-12 09:58 | XMS REPORT ---
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 Alcohol Never Tobacco Never smoker [...] Reviewed 05/08/2011 12:00 AM Decadron [address] [facility]#[id number] (Eva) Reviewed 05/08/2011 12:00 AM Depo-Medrol 80 mg NDC#[id number]-Wagmpx te Reviewed 07/17/2009 12:00 AM URINE CULTURE/COLONY COUNT Reviewed 07/17/2009 12:00 AM URINE TEST Reviewed 07/17/2009 12:00 AM URINALYSIS AUTO W/O SCOPE Reviewed 04/06/2012 12:00 AM MAMMOGRAM SCREENING Returned 06/01/2012 12:00 AM INFLUENZA A/B AG EIA Returned 06/01/2012 12:00 AM Phenergan, Up to 50 Mg NDC#5725-9738-80 Reviewed 06/01/2012 12:00 AM Toradol 60 Mg NDC#0762-8498-80 Reviewed 06/01/2012 12:00 AM THER/PROPH/DIAG INJ SC/IM [...] Reviewed 03/06/2014 12:00 AM Depo-Medrol 80 mg NDC#[address]-77 Revi ewed 03/06/2014 12:00 AM Decadron, Per 1 Mg NDC# [address]-70 Re viewed 06/04/2014 12:00 AM THER/PROPH/DIAG INJ SC/IM Reviewed 06/04/2014 12:00 AM Depo-Medrol 80 mg NDC#[address]-37 Revi ewed 06/04/2014 12:00 AM Decadron, Per 1 Mg NDC# [address]-14 Re viewed 10/16/2014 12:00 AM THER/PROPH/DIAG INJ SC/IM Reviewed 10/16/2014 12:00 AM Decadron [address] [facility]# [address]-76 Reviewe d 10/16/2014 12:00 AM Depo-Medrol [address] [facility]#[address]-10 Revi ewed 10/23/2014 12:00 AM RADEX SPINE [...] 2015 10:26AM Depression Dec 05 2015 10:26AM Payers Insurance Name Company Name Plan Name Plan Number Policy Number Henry cy Group Number Start Date BCBS [place] [place] [id number] We 2015 [place] Medical Assistance [facility] [id number] Friday, 2008 BCBS [place] [place] [id number] 2008 [facility] [id number] 2 December [facility] [id number] Wednesday, 2010 [facility] Occupational Medicine [id number] Friday, January 27, 2012 BCBS Bcbs [facility] [id number] We April 18, 2014 [facility] Work [facility] [id number] N/A Usd 506 USD 506 [id number] N/A History of Encounters Visit Date Visit [...] APR N 08/01/2013 Office visit Lia pfeiffer SHAPING MACHINE TENDER 06/15/2012 Office visit Danilo Cantu MD 06/01/2012 Office visit Amna Marion SHAPING MACHINE TENDER 01/27/2012 Office visit Amna Marion SHAPING MACHINE TENDER 08/26/2011 Office visit Reggie Foy MD 05/08/2011 Office visit Amna Marion SHAPING MACHINE TENDER 04/24/2011 Office visit Danilo Cantu MD 01/30/2011 Office visit Amna Marion SHAPING MACHINE TENDER 09/30/2010 Office visit Reggie Foy MD 04/16/2010 Office visit Danilo Cantu MD 02/03/2010 Office visit Danilo Cantu MD 07/17/2009 Office visit Ivania MONDRAGON 01/28/2009 Nurse visit Reggie Foy MD 01/10/2009 Office visit Reggie Foy MD 12/26/2008 Office visit Alexys Schultz MD
--- OUTSIDE RECORDS SUMMARY | 2019-09-12 09:58 | XMS REPORT ---
Author Author Ana Pinto [facility] Address [address] [place], [place] [address] Care Team Providers Care Laboratory Equipment Cleaner Name Role Phone Sondra Pinto PCP Sondra Pinto PreferredProvider Allergies and Adverse Reactions Name Reaction Notes PENICILLINS hives Plan of Treatment Not available. Medications Active Name Start Date Estimated Completion Date SIG Co mments cyclobenzaprine 10 mg oral tablet 05/04/2017 1/2 to 1 tablet at bedtime for muscle spasms and headaches Name Start Date Expiration Date SIG Comments [...] oral route once daily for 4 days Problem List Not available. 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 Alcohol Never Tobacco Never smoker History of [...] Reviewed 05/08/2011 12:00 AM Decadron 1 mg [facility] [facility]#[id number] (Eva) Reviewed 05/08/2011 12:00 AM Depo-Medrol 80 mg [facility] 2[facility]#[id number]-Oibaxz te Reviewed 12/11/2015 12:00 AM Screening mammography, [...] 12:00 AM Phenergan, Up to 50 Mg [facility]NOTE 2]#9828-4945-28 Reviewed 06/01/2012 12:00 AM Toradol 60 Mg ND#4957-8002-62 Reviewed 06/01/2012 12:00 AM THER/PROPH/DIAG INJ SC/IM [...] Reviewed 03/06/2014 12:00 AM Depo-Medrol 80 mg NDC#[address]-99 Revi ewed 03/06/2014 12:00 AM Decadron, Per 1 Mg NDC# [address]-35 Re viewed 06/04/2014 12:00 AM THER/PROPH/DIAG INJ SC/IM Reviewed 06/04/2014 12:00 AM Depo-Medrol 80 mg NDC#[address]-70 Revi ewed 06/04/2014 12:00 AM Decadron, Per 1 Mg NDC# [address]-81 Re viewed 10/16/2014 12:00 AM THER/PROPH/DIAG INJ SC/IM Reviewed 10/16/2014 12:00 AM Decadron 8 mg [facility] [place] 2[facility]# [address]-52 Reviewe d 10/16/2014 12:00 AM Depo-Medrol 80 mg [facility] [place] 2]#[address]-88 Revi ewed 10/23/2014 12:00 AM RADEX SPINE [...] 3:45PM Tension headache May 04 2017 3:45PM Payers Insurance Name Company Name Plan Name Plan Number Policy Number Henry cy Group Number Start Date BCBS [employer] [place] [id number] N/ A [place] Medical Assistance [facility] tan Pro [id number] Friday, 2008 BCBS [place] [place] [id number] 2008 [facility] [id number] 2 December [facility] [id number] Wednesday, 2010 [facility] [place] [facility] Occupational Medicine [id number] Friday, January 27, 2012 BCBS [place] [place] [id number] We April 18, 2014 [employer] Work Comp [employer] [id number] N/A Usd 506 USD 506 [id number] N/A BCBS [place] [place] [id number] We February 27, 2015 BCBS [place] [id number] N/ A History of Encounters Visit Date Visit Type Provider 05/04/2017 Office visit Sondra Houser PRN 04/21/2017 Office visit Sondra Houser PRN 05/10/2016 Office visit Alli Iniguez LADDERMAN 03/28/2016 Office visit Yoli Parrishdez PLAY LEADER 12/05/2015 Office visit Mica Sloan DO 04/08/2015 Office visit Daniel Acosta APR N 03/07/2015 Office visit Daniel Vizcainoran APR N 10/23/2014 Office visit Reggie Foy MD 10/16/2014 Office visit Reggie Foy MD 06/07/2014 Office visit Reggie Foy MD 06/04/2014 Office visit Daniel Vizcainoran APR N 05/22/2014 Voided Reggie Foy MD 03/06/2014 Office visit Daniel Vizcainoran APR N 08/01/2013 Office visit Lia pfeiffer PLAY LEADER 06/15/2012 Office visit Danilo Cantu MD 06/01/2012 Office visit Amna Marion PLAY LEADER 01/27/2012 Office visit Amna Marion PLAY LEADER 08/26/2011 Office visit Reggie Foy MD 05/08/2011 Office visit Amna Marion PLAY LEADER 04/24/2011 Office visit Danilo Cantu MD 01/30/2011 Office visit Amna Marion PLAY LEADER 09/30/2010 Office visit Reggie Foy MD 04/16/2010 Office visit Danilo Cantu MD 02/03/2010 Office visit Danilo Cantu MD 07/17/2009 Office visit Ivania MONDRAGON 01/28/2009 Nurse visit Reggie Foy MD 01/10/2009 Office visit Reggie Foy MD 12/26/2008 Office visit Alexys Schultz MD
--- OUTSIDE RECORDS SUMMARY | 2019-09-12 09:58 | XMS REPORT ---
Author Author Ana Pinto [facility] Address [address] [place], [place] [address] Care Team Providers Care Superintendent Construction Name Role Phone Sondra Pinto PCP Sondra Pinto PreferredProvider Allergies and Adverse Reactions Name Reaction Notes PENICILLINS hives Plan of Treatment Not available. 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 Alcohol Never Tobacco Never smoker History of [...] Reviewed 05/08/2011 12:00 AM Decadron 1 mg [facility]#[id number] (Eva) Reviewed 05/08/2011 12:00 AM Depo-Medrol 80 mg [facility]#[id number]-Wspkuv te Reviewed 12/11/2015 12:00 AM Screening mammography, [...] 12:00 AM Phenergan, Up to 50 Mg [facility]#2515-8556-59 Reviewed 06/01/2012 12:00 AM Toradol 60 Mg [facility]#5266-2525-59 Reviewed 06/01/2012 12:00 AM THER/PROPH/DIAG INJ SC/IM [...] Reviewed 03/06/2014 12:00 AM Depo-Medrol 80 mg NDC#[address]-33 Revi ewed 03/06/2014 12:00 AM Decadron, Per 1 Mg NDC# [address]-01 Re viewed 06/04/2014 12:00 AM THER/PROPH/DIAG INJ SC/IM Reviewed 06/04/2014 12:00 AM Depo-Medrol 80 mg NDC#[address]-26 Revi ewed 06/04/2014 12:00 AM Decadron, Per 1 Mg NDC# [address]-30 Re viewed 10/16/2014 12:00 AM THER/PROPH/DIAG INJ SC/IM Reviewed 10/16/2014 12:00 AM Decadron 8 mg NDC# [address]-98 Reviewe d 10/16/2014 12:00 AM Depo-Medrol 80 mg NDC#[address]-14 Revi ewed 10/23/2014 12:00 AM RADEX SPINE [...] Vis Given Vis Pub CVX Tdap 03/07/2015 GlaxAlex and Aniine SKB BOOSTRIX H9P57 Intramuscula r Left Deltoid 03/07/2015 08/25/2012 115 History of Past Illness Name Date of Onset Comments NO SIGNIFICANT MEDICAL HX GIVEN Acute cystitis Jul 17 2009 9:16AM Menorrhagia Feb 03 2010 2:55PM Family history of malignant neoplasm; genital organs; other Feb 03 2010 2:55PM Menorrhagia Apr 16 2010 10:07AM Menorrhagia Dec 29 2010 9:31AM Colitis Sep 30 2010 10:10AM [...] routine gen [facility] Jun 07 2017 9:03AM Screening Mammogram For High Risk Patient Jun 07 2017 9:03A M Fibrocystic breast determined by biopsy Jun 07 2017 9:03AM Family history of uterine cancer Jun 07 2017 9:03AM Cystocele, midline Jun 07 2017 9:03AM Urinary incontinence, urge Jun 07 2017 9:03AM Payers Insurance Name Company Name Plan Name Plan Number Policy Number Henry cy Group Number Start Date BCBS [employer] [place] [id number] N/ A [place] [facility] [id number] Friday, 2008 [employer] [place] [id number] [facility] [id number] 2 December [facility] [id number] Wednesday, 2010 [facility] Occupational Medicine [id number] Friday, January 27, 2012 [employer]BS [employer] [place] [id number] We April 18, 2014 [employer] [id number] N/A Usd 506 USD [id number] N/A [employer]BS [employer] [id number] We February 27, 2015 [employer]BS [employer] [place] [id number] N/ A History of Encounters Visit Date Visit Type Provider 06/07/2017 Office visit Sondra Houser PRN 05/25/2017 Office visit Sondra Houser PRN 05/04/2017 Office visit Sondra Houser PRN 04/21/2017 Office visit oSndra Houser PRN 05/10/2016 Office visit Alli Iniguez NP 03/28/2016 Office visit Yoli Slade ICE SELLER 12/05/2015 Office visit Mica Sloan DO 04/08/2015 Office visit Daniel Acosta APR N 03/07/2015 Office visit Daniel Acosta APR N 10/23/2014 Office visit Reggie Foy MD 10/16/2014 Office visit Reggie Foy MD 06/07/2014 Office visit Reggie Foy MD 06/04/2014 Office visit Daniel Acosta APR N 05/22/2014 Voided Reggie Foy MD 03/06/2014 Office visit Daniel Acosta APR N 08/01/2013 Office visit Lia pfeiffer ICE SELLER 06/15/2012 Office visit Danilo Cantu MD 06/01/2012 Office visit Amna Marion ICE SELLER 01/27/2012 Office visit Amna Marion ICE SELLER 08/26/2011 Office visit Reggie Foy MD 05/08/2011 Office visit Amna Marion ICE SELLER 04/24/2011 Office visit Danilo Cantu MD 01/30/2011 Office visit Amna Marion ICE SELLER 09/30/2010 Office visit Reggie Foy MD 04/16/2010 Office visit Danilo Cantu MD 02/03/2010 Office visit Danilo Cantu MD 07/17/2009 Office visit Ivania MNODRAGON 01/28/2009 Nurse visit Reggie Foy MD 01/10/2009 Office visit Reggie Foy MD 12/26/2008 Office visit Alexys Schultz MD
--- OUTSIDE RECORDS SUMMARY | 2019-09-12 09:58 | XMS REPORT ---
Author Author Ana Acosta [facility] Address [address] [facility] [address] [place], [place] [address] Care Team Providers Care Shirt Ironer Supervisor Name Role Phone Daniel Acosta PCP Allergies and Adverse Reactions Name Reaction Notes PENICILLINS hives Plan of Treatment Planned Activity Comments Planned Date Planned Time Plan/Goal X-RAY EXAM KNEE 4 OR MORE 03/13/2015 12:00 AM Medications Name Start Date Expiration Date SIG [...] doxycycline hyclate 100 mg oral capsule 06/04/2014 2/23/201 5 take 1 capsule (100 mg) by [...] HC BMI BSA BMI Percentile O2 Sat(%) 03/07/2015 7:36:00 PM 144 mmHg 84 mmHg [...] Comments denies smoking denies alcohol use 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 Alcohol Never Tobacco Never smoker History of Procedures Date Ordered Description Order Status 03/07/2015 12:00 AM TDAP VACCINE 7 YRS/> [...] Reviewed 05/08/2011 12:00 AM Decadron 1 mg ND#[id number] (Eva) Reviewed 05/08/2011 12:00 AM Depo-Medrol 80 mg ND#[id number]-Qvgbcw te Reviewed 07/17/2009 12:00 AM URINE CULTURE/COLONY COUNT Reviewed 07/17/2009 12:00 AM URINE TEST Reviewed 07/17/2009 12:00 AM URINALYSIS AUTO W/O SCOPE Reviewed 04/06/2012 12:00 AM MAMMOGRAM SCREENING Returned 06/01/2012 12:00 AM INFLUENZA A/B AG EIA Returned 06/01/2012 12:00 AM Phenergan, Up to 50 Mg [facility]#5245-4077-28 Reviewed 06/01/2012 12:00 AM Toradol 60 Mg [facility]#2445-1550-66 Reviewed 06/01/2012 12:00 AM THER/PROPH/DIAG INJ SC/IM [...] Reviewed 03/06/2014 12:00 AM Depo-Medrol 80 mg NDC#[address]-70 Revi ewed 03/06/2014 12:00 AM Decadron, Per 1 Mg NDC# [address]-00 Re viewed 06/04/2014 12:00 AM THER/PROPH/DIAG INJ SC/IM Reviewed 06/04/2014 12:00 AM Depo-Medrol 80 mg NDC#[address]-22 Revi ewed 06/04/2014 12:00 AM Decadron, Per 1 Mg NDC# [address]-37 Re viewed 10/16/2014 12:00 AM THER/PROPH/DIAG INJ SC/IM Reviewed 10/16/2014 12:00 AM Decadron 8 mg NDC# [address]-07 Reviewe d 10/16/2014 12:00 AM Depo-Medrol 80 mg NDC#[address]-65 Revi ewed 10/23/2014 12:00 AM RADEX SPINE [...] Of Immunizations Name Date Admin Mfg Name Mf Code Trade Name Lot# Route [...] Knee pain, right Mar 13 2015 12:43PM Payers Insurance Name Company Name Plan Name Plan Number Policy Number Henry cy Group Number Start Date Bcbs [employer] [place] [id number] We 2014 [place] [facility] [id number] December 26, 200 9 [employer]cbs [place] [id number] [facility] [id number] 2 December [facility] [id number] Wednesday, 2010 [facility] Occupational Medicine [id number] Friday, January 27, 2012 History of Encounters Visit Date Visit Type Provider 03/07/2015 Office visit Daniel Acosta APR N 10/23/2014 Office visit Reggie Foy MD 10/16/2014 Office visit Reggie Foy MD 06/07/2014 Office visit Reggie Fyo MD 06/04/2014 Office visit Daniel Acosta APR N 05/22/2014 Voided Reggie Foy MD 03/06/2014 Office visit Daniel Acosta APR N 08/01/2013 Office visit Lia pfeiffer ENGRAVER AUTOMATIC 06/15/2012 Office visit Danilo Cantu MD 06/01/2012 Office visit Amna Marion ENGRAVER AUTOMATIC 01/27/2012 Office visit Amna Marion ENGRAVER AUTOMATIC 08/26/2011 Office visit Reggie Foy MD 05/08/2011 Office visit Amna Marion ENGRAVER AUTOMATIC 04/24/2011 Office visit Danilo Cantu MD 01/30/2011 Office visit Amna Marion ENGRAVER AUTOMATIC 09/30/2010 Office visit Reggie Foy MD 04/16/2010 Office visit Danilo Cantu MD 02/03/2010 Office visit Danilo Cantu MD 07/17/2009 Office visit Ivania MONDRAGON 01/28/2009 Nurse visit Reggie Foy MD 01/10/2009 Office visit Reggie Foy MD 12/26/2008 Office visit Alexys Schultz MD
[2019-09-12 09:59] LABS: BASOPHILS % (AUTO) 0 % (0-10); EOSINOPHILS # (AUTO) 0.2 10^3/uL (0.0-0.3); EOSINOPHILS % (AUTO) 2 % (0-10); HEMATOCRIT 40 % (35-52); HEMOGLOBIN 13.8 G/DL (11.5-16.0); LYMPHOCYTES # (AUTO) 1.9 X 10^3 (1.0-4.0); LYMPHOCYTES % (AUTO) 21 % (12-44); MEAN CORPUSCULAR HEMOGLOBIN 29 PG (25-34); MEAN CORPUSCULAR HGB CONC 34 G/DL (32-36); MEAN CORPUSCULAR VOLUME 84 FL (80-99); MEAN PLATELET VOLUME 10.1 FL (7.4-10.4); MONOCYTES # (AUTO) 0.6 X 10^3 (0.0-1.0); MONOCYTES % (AUTO) 7 % (0-12); NEUTROPHILS # (AUTO) 6.3 X 10^3 (1.8-7.8); NEUTROPHILS % (AUTO) 71 % (42-75); PLATELET COUNT 299 10^3/uL (130-400); RED CELL DISTRIBUTION WIDTH 14.9 % (10.0-14.5); WHITE BLOOD COUNT 8.9 10^3/uL (4.3-11.0)
--- OUTSIDE RECORDS SUMMARY | 2019-09-12 09:59 | XMS REPORT ---
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 Alcohol Never Tobacco Never smoker History of [...] Reviewed 05/08/2011 12:00 AM Decadron 1 mg [facility]#[id number] (Eva) Reviewed 05/08/2011 12:00 AM Depo-Medrol 80 mg [facility]#[id number]-Gzhrih te Reviewed 12/11/2015 12:00 AM Screening mammography, bilateral Reviewe d 12/05/2015 12:00 AM SPECIMEN HANDLING OFFICE-LAB Reviewed 12/05/2015 12:00 AM CYTOPATH C/V THIN LAYER Reviewed 07/17/2009 12:00 AM URINE CULTURE/COLONY COUNT Reviewed 07/17/2009 12:00 AM URINE TEST Reviewed 07/17/2009 12:00 AM URINALYSIS AUTO W/O SCOPE Reviewed 04/21/2017 2:24 PM INFLUENZA A/B AG EIA Reviewed 04/21/2017 12:00 AM INFLUENZA A/B AG EIA Reviewed 04/06/2012 12:00 AM MAMMOGRAM SCREENING Reviewed 05/04/2017 12:00 AM THER/PROPH/DIAG INJ SC/IM Reviewed 05/04/2017 12:00 AM Decadron 4mg Injection Reviewed 05/04/2017 12:00 AM Depo-Medrol 40mg Injection Reviewed 06/01/2012 12:00 AM INFLUENZA A/B AG EIA Reviewed 06/01/2012 12:00 AM Phenergan, Up to 50 Mg [facility]#9762-6509-53 Reviewed 06/01/2012 12:00 AM Toradol 60 Mg ND#2230-7542-96 Reviewed 06/01/2012 12:00 AM THER/PROPH/DIAG INJ SC/IM [...] Reviewed 03/06/2014 12:00 AM Depo-Medrol 80 mg NDC#[address]-16 Revi ewed 03/06/2014 12:00 AM Decadron, Per 1 Mg NDC# [address]-31 Re viewed 06/04/2014 12:00 AM THER/PROPH/DIAG INJ SC/IM Reviewed 06/04/2014 12:00 AM Depo-Medrol 80 mg NDC#[address]-63 Revi ewed 06/04/2014 12:00 AM Decadron, Per 1 Mg NDC# [address]-32 Re viewed 10/16/2014 12:00 AM THER/PROPH/DIAG INJ SC/IM Reviewed 10/16/2014 12:00 AM Decadron 8 mg [facility]# [address]-68 Reviewe d 10/16/2014 12:00 AM Depo-Medrol 80 mg [facility]#[address]-71 Revi ewed 10/23/2014 12:00 AM RADEX SPINE [...] Vis Given Vis Pub CVX Tdap 03/07/2015 [employer] SKB BOOSTRIX H9P57 Intramuscula r Left Deltoid [...] Group Number Start Date BCBS [place] [place] [id number] N/ A [place] Medical Assistance [facility] [id number] Friday, 2008 [employer] [place] [id number] 2008 [facility] [id number] 2 December [facility] [id number] Wednesday, 2010 [facility] Med Occupational Medicine [id number] Friday, January 27, 2012 [employer]BS [place] [id number] We April 18, 2014 [employer] [id number] N/A Usd 506 USD [id number] N/A [employer] [place] [id number] We February 27, 2015 [employer] [place] [id number] N/ A History of Encounters Visit Date Visit Type Provider 05/04/2017 Office visit Sondra Houser PRN 04/21/2017 Office visit Sondra Houser PRN 05/10/2016 Office visit Alli Iniguez NP 03/28/2016 Office visit Yoli Berlin PEST CONTROL PILOT 12/05/2015 Office visit Mica Sloan DO 04/08/2015 Office visit Daniel Vizcainoran APR N 03/07/2015 Office visit Daniel Vizcainoran APR N 10/23/2014 Office visit Reggie Foy MD 10/16/2014 Office visit Reggie Foy MD 06/07/2014 Office visit Reggie Foy MD 06/04/2014 Office visit Daniel Acosta APR N 05/22/2014 Voided Reggie Foy MD 03/06/2014 Office visit Daniel Acosta APR N 08/01/2013 Office visit Lia PowersSally Franks n PEST CONTROL PILOT 06/15/2012 Office visit Danilo Cantu MD 06/01/2012 Office visit Amna Marion PEST CONTROL PILOT 01/27/2012 Office visit Amna Marion PEST CONTROL PILOT 08/26/2011 Office visit Reggie Foy MD 05/08/2011 Office visit Amna Marion PEST CONTROL PILOT 04/24/2011 Office visit Danilo Cantu MD 01/30/2011 Office visit Amna Marion PEST CONTROL PILOT 09/30/2010 Office visit Reggie Foy MD 04/16/2010 Office visit Danilo Cantu MD 02/03/2010 Office visit Danilo Cantu MD 07/17/2009 Office visit Ivania MONDRAGON 01/28/2009 Nurse visit Reggie Foy MD 01/10/2009 Office visit Reggie Foy MD 12/26/2008 Office visit Alexys Schultz MD
--- OUTSIDE RECORDS SUMMARY | 2019-09-12 09:59 | XMS REPORT ---
Author Author Ana Foy [facility] Address [address] [place], [place] [address] Care Team Providers Care Dip Tanker Name Role Phone Reggie Foy PCP Unavailable Allergies and Adverse Reactions Name Reaction Notes PENICILLINS hives Plan of Treatment Planned Activity Comments Planned Date Planned Time Plan/Goal X-RAY EXAM L-S SPINE 05/22 VWS 10/23/2014 12:00 AM Medications Active Name Start Date Estimated Completion Date SIG Co mments Contrave oral tablet extended release 8-90 mg 10/23/2014 take 2 tablets by oral route 2 times per day in the morning and evening for 30 days Name Start Date [...] per day for 7 days Zithromax Z-Javier oral tablet 250 mg 10/16/2014 [...] HC BMI BSA BMI Percentile O2 Sat(%) 10/23/2014 9:09:00 AM 160 mmHg 78 mmHg [...] Comments denies smoking denies alcohol use Children Hand Stoner's Alcohol Tobacco Never smoker History of Procedures [...] Elevated blood pressure Oct 23 2014 9:11AM Payers Insurance Name Company Name Plan Name Plan Number Policy Number Henry cy Group Number Start Date Bcbs [employer] [place] [id number] We 2014 [place] Medical Assistance [facility] [id number] December 26, 200 9 [employer]bs [employer] [place] [id number] [facility] [id number] 2 December [facility] [id number] Wednesday, 2010 [facility] Med Occupational Medicine [id number] Friday, January 27, 2012 History of Encounters Visit Date Visit Type Provider 10/23/2014 Office visit Reggie Foy MD 10/16/2014 Office visit Reggie Foy MD 06/07/2014 Office visit Reggie Foy MD 06/04/2014 Office visit Daniel Acosta APR N 05/22/2014 Voided Reggie Foy MD 03/06/2014 Office visit Daniel Acosta APR N 08/01/2013 Office visit Lia pfeiffer COAL PIPELINE OPERATOR 06/15/2012 Office visit Danilo Cantu MD 06/01/2012 Office visit Amna Marion COAL PIPELINE OPERATOR 01/27/2012 Office visit Amna Marion COAL PIPELINE OPERATOR 08/26/2011 Office visit Reggie Foy MD 05/08/2011 Office visit Amna Marion COAL PIPELINE OPERATOR 04/24/2011 Office visit Danilo Cantu MD 01/30/2011 Office visit Amna Marion COAL PIPELINE OPERATOR 09/30/2010 Office visit Reggie Foy MD 04/16/2010 Office visit Danilo Cantu MD 02/03/2010 Office visit Danilo Cantu MD 07/17/2009 Office visit Ivania MONDRAGON 01/28/2009 Nurse visit Reggie Foy MD 01/10/2009 Office visit Reggie Foy MD 12/26/2008 Office visit Alexys Schultz MD
--- OUTSIDE RECORDS SUMMARY | 2019-09-12 09:59 | XMS REPORT ---
Author Author Ana Acosta 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 Alcohol Never Tobacco Never smoker History of [...] Reviewed 05/08/2011 12:00 AM Decadron 1 mg ND#[id number] (Eva) Reviewed 05/08/2011 12:00 AM Depo-Medrol 80 mg ND#[id number]-Pfnfvx te Reviewed 07/17/2009 12:00 AM URINE CULTURE/COLONY COUNT Reviewed 07/17/2009 12:00 AM URINE TEST Reviewed 07/17/2009 12:00 AM URINALYSIS AUTO W/O SCOPE Reviewed 04/06/2012 12:00 AM MAMMOGRAM SCREENING Returned 06/01/2012 12:00 AM INFLUENZA A/B AG EIA Returned 06/01/2012 12:00 AM Phenergan, Up to 50 Mg ND#5413-7125-82 Reviewed 06/01/2012 12:00 AM Toradol 60 Mg ND#6496-4894-41 Reviewed 06/01/2012 12:00 AM THER/PROPH/DIAG INJ SC/IM [...] Reviewed 03/06/2014 12:00 AM Depo-Medrol 80 mg NDC#[address]-89 Revi ewed 03/06/2014 12:00 AM Decadron, Per 1 Mg NDC# [address]-15 Re viewed 06/04/2014 12:00 AM THER/PROPH/DIAG INJ SC/IM Reviewed 06/04/2014 12:00 AM Depo-Medrol 80 mg NDC#[address]-53 Revi ewed 06/04/2014 12:00 AM Decadron, Per 1 Mg NDC# [address]-67 Re viewed 10/16/2014 12:00 AM THER/PROPH/DIAG INJ SC/IM Reviewed 10/16/2014 12:00 AM Decadron 8 mg NDC# [address]-35 Reviewe d 10/16/2014 12:00 AM Depo-Medrol 80 mg NDC#[address]-45 Revi ewed 10/23/2014 12:00 AM RADEX SPINE [...] of multiple sites Mar 07 2015 7:38PM Payers Insurance Name Company Name Plan Name Plan Number Policy Number Henry cy Group Number Start Date Bcbs [employer] [place] [id number] We 2014 [place] [facility] [id number] December 26, 200 9 Bcbs [employer] [place] [id number] 2008 [facility] [id number] 2 December [facility] [place] [facility] [id number] Wednesday, 2010 [facility] Occupational Medicine [id number] Friday, January 27, 2012 History of Encounters Visit Date Visit Type Provider 03/07/2015 Office visit Daniel Acosta APR N 10/23/2014 Office visit Reggie Foy MD 10/16/2014 Office visit Reggie Foy MD 06/07/2014 Office visit Reggie Foy MD 06/04/2014 Office visit Daniel Acosta APR N 05/22/2014 Voided Reggie Foy MD 03/06/2014 Office visit Daniel Acosta APR N 08/01/2013 Office visit Lia pfeiffer TECHNICAL DOCUMENT WRITER 06/15/2012 Office visit Danilo Cantu MD 06/01/2012 Office visit Amna Marion TECHNICAL DOCUMENT WRITER 01/27/2012 Office visit Amna Marion TECHNICAL DOCUMENT WRITER 08/26/2011 Office visit Reggie Foy MD 05/08/2011 Office visit Amna Marion TECHNICAL DOCUMENT WRITER 04/24/2011 Office visit Danilo Cantu MD 01/30/2011 Office visit Amna Marion TECHNICAL DOCUMENT WRITER 09/30/2010 Office visit Reggie Foy MD 04/16/2010 Office visit Danilo Cantu MD 02/03/2010 Office visit Danilo Cantu MD 07/17/2009 Office visit Ivania MONDRAGON 01/28/2009 Nurse visit Reggie Foy MD 01/10/2009 Office visit Reggie Foy MD 12/26/2008 Office visit Alexys Schultz MD
--- OUTSIDE RECORDS SUMMARY | 2019-09-12 09:59 | XMS REPORT ---
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 Alcohol Never Tobacco Never smoker History [...] Reviewed 05/08/2011 12:00 AM Decadron 1 mg ND#[id number] (Eva) Reviewed 05/08/2011 12:00 AM Depo-Medrol 80 mg ND#[id number]-Lawdpo te Reviewed 07/17/2009 12:00 AM URINE CULTURE/COLONY COUNT Reviewed 07/17/2009 12:00 AM URINE TEST Reviewed 07/17/2009 12:00 AM URINALYSIS AUTO W/O SCOPE Reviewed 04/06/2012 12:00 AM MAMMOGRAM SCREENING Returned 06/01/2012 12:00 AM INFLUENZA A/B AG EIA Returned 06/01/2012 12:00 AM Phenergan, Up to 50 Mg ND#3844-1141-65 Reviewed 06/01/2012 12:00 AM Toradol 60 Mg ND#2831-3160-03 Reviewed 06/01/2012 12:00 AM THER/PROPH/DIAG INJ SC/IM [...] Reviewed 03/06/2014 12:00 AM Depo-Medrol 80 mg NDC#[address]-33 Revi ewed 03/06/2014 12:00 AM Decadron, Per 1 Mg NDC# [address]-33 Re viewed 06/04/2014 12:00 AM THER/PROPH/DIAG INJ SC/IM Reviewed 06/04/2014 12:00 AM Depo-Medrol 80 mg NDC#[address]-02 Revi ewed 06/04/2014 12:00 AM Decadron, Per 1 Mg NDC# [address]-27 Re viewed 10/16/2014 12:00 AM THER/PROPH/DIAG INJ SC/IM Reviewed 10/16/2014 12:00 AM Decadron 8 mg NDC# [address]-81 Reviewe d 10/16/2014 12:00 AM Depo-Medrol 80 mg NDC#[address]-23 Revi ewed 10/23/2014 12:00 AM RADEX SPINE [...] Group Number Start Date Bcbs [employer] [place] [id number] We 2014 [place] [facility] [id number] December 26, 200 9 Bcbs [employer] [place] [id number] 2008 [facility] [id number] 2 December [facility] [id number] Wednesday, 2010 [facility] Occupational Medicine [id number] Friday, January 27, 2012 History of Encounters Visit Date Visit Type Provider 03/07/2015 Office visit Daniel Acosta APR N 10/23/2014 Office visit Reggie Foy MD 10/16/2014 Office visit Reggie Foy MD 06/07/2014 Office visit Reggie Foy MD 06/04/2014 Office visit Daniel Acosta APR N 05/22/2014 Voided Reggie Foy MD 03/06/2014 Office visit Daniel Acosta APR N 08/01/2013 Office visit Lia pfeiffer MUSIC BOX MECHANIC 06/15/2012 Office visit Danilo Cantu MD 06/01/2012 Office visit Amna Marion MUSIC BOX MECHANIC 01/27/2012 Office visit Amna Marion MUSIC BOX MECHANIC 08/26/2011 Office visit Reggie Foy MD 05/08/2011 Office visit Amna Marion MUSIC BOX MECHANIC 04/24/2011 Office visit Danilo Cantu MD 01/30/2011 Office visit Amna Marion MUSIC BOX MECHANIC 09/30/2010 Office visit Reggie Foy MD 04/16/2010 Office visit Danilo Cantu MD 02/03/2010 Office visit Danilo Cantu MD 07/17/2009 Office visit Ivania MONDRAGON 01/28/2009 Nurse visit Reggie Foy MD 01/10/2009 Office visit Reggie Foy MD 12/26/2008 Office visit Alexys Schultz MD
--- OUTSIDE RECORDS SUMMARY | 2019-09-12 10:00 | XMS REPORT ---
Author Author Ana Pinto [facility] Address [address] [place], [place] [id number] Care Team Providers Care Fabric Lay Out Worker Name Role Phone Sondra Pinto PCP Sondra Pinto PreferredProvider Allergies and Adverse Reactions Name Reaction Notes PENICILLINS hives Plan of Treatment Planned Activity Comments Planned Date Planned Time Plan/Goal LIPID PANEL 06/24/2017 12:00 AM COMPREHENSIVE METABOLIC PANEL 06/24/2017 12:00 AM CBC W/ AUTO DIFF (RFLX MAN DIFF IF IND). 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 Alcohol Never Tobacco Never smoker History of [...] Reviewed 05/08/2011 12:00 AM Decadron 1 mg ND#[id number] (Eva) Reviewed 05/08/2011 12:00 AM Depo-Medrol 80 mg NDC#[id number]-Qybkqc te Reviewed 12/11/2015 12:00 AM Screening mammography, [...] Returned 06/24/2017 12:00 AM ROUTINE VENIPUNCTURE Reviewed 06/01/2012 12:00 AM INFLUENZA A/B AG EIA Reviewed 06/01/2012 12:00 AM Phenergan, Up to 50 Mg ND#9849-5581-17 Reviewed 06/01/2012 12:00 AM Toradol 60 Mg ND#2410-6537-77 Reviewed 06/01/2012 12:00 AM THER/PROPH/DIAG INJ SC/IM [...] Reviewed 03/06/2014 12:00 AM Depo-Medrol 80 mg NDC#[address]-89 Revi ewed 03/06/2014 12:00 AM Decadron, Per 1 Mg NDC# [address]-88 Re viewed 06/04/2014 12:00 AM THER/PROPH/DIAG INJ SC/IM Reviewed 06/04/2014 12:00 AM Depo-Medrol 80 mg NDC#[address]-74 Revi ewed 06/04/2014 12:00 AM Decadron, Per 1 Mg NDC# [address]-10 Re viewed 10/16/2014 12:00 AM THER/PROPH/DIAG INJ SC/IM Reviewed 10/16/2014 12:00 AM Decadron 8 mg NDC# [address]-17 Reviewe d 10/16/2014 12:00 AM Depo-Medrol 80 mg NDC#[address]-66 Revi ewed 10/23/2014 12:00 AM RADEX SPINE [...] Vis Given Vis Pub CVX Tdap 03/07/2015 SmartNews SKB BOOSTRIX [id number] Intramuscula r Left Deltoid [...] Group Number Start Date BCBS [place] [id number] N/ A [place] Medical Assistance [facility]ynn [facility] [id number] Friday, 2008 [employer] [place] [id number] [id number] 2 [facility] [id number] Wednesday, 2010 [facility] Med Occupational Medicine [id number] Friday, January 27, 2012 [employer] [place] [place] [id number] We April 18, 2014 Enomaly Work Comp Enomaly [id number] N/A Usd 506 USD 506 [id number] N/A [employer] [id number] We February 27, 2015 [employer] [place] [id number] N/ A History of Encounters Visit Date Visit Type Provider 06/24/2017 Laboratory Sondra Houser PRN 06/07/2017 Office visit Sondra Houser PRN 05/25/2017 Office visit Sondra Houser PRN 05/04/2017 Office visit Sondra Houser PRN 04/21/2017 Office visit Sondra Coronado Ana Mariajessicashekhar Houser PRN 05/10/2016 Office visit Alli Iniguez THERAPIST RADIATION 03/28/2016 Office visit Yoli Berlin FAMILY DAY CARER 12/05/2015 Office visit Mica Luther DO 04/08/2015 Office visit Daniel Vizcainoran APR N 03/07/2015 Office visit Daniel Vizcainoran APR N 10/23/2014 Office visit Reggie Foy MD 10/16/2014 Office visit Reggie Foy MD 06/07/2014 Office visit Reggie Foy MD 06/04/2014 Office visit Daniel Vizcainoran APR N 05/22/2014 Voided Reggie Foy MD 03/06/2014 Office visit Daniel Vizcainoran APR N 08/01/2013 Office visit Lia Franks n FAMILY DAY CARER 06/15/2012 Office visit Danilo Cantu MD 06/01/2012 Office visit Amna Marion FAMILY DAY CARER 01/27/2012 Office visit Amna Marion FAMILY DAY CARER 08/26/2011 Office visit Reggie Foy MD 05/08/2011 Office visit Amna Marion FAMILY DAY CARER 04/24/2011 Office visit Danilo Cantu MD 01/30/2011 Office visit Amna Marion FAMILY DAY CARER 09/30/2010 Office visit Reggie Foy MD 04/16/2010 Office visit Danilo Cantu MD 02/03/2010 Office visit Danilo Cantu MD 07/17/2009 Office visit Ivania MONDRAGON 01/28/2009 Nurse visit Reggie Foy MD 01/10/2009 Office visit Reggie Foy MD 12/26/2008 Office visit Alexys Schultz MD
--- OUTSIDE RECORDS SUMMARY | 2019-09-12 10:00 | XMS REPORT ---
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 Alcohol Never Tobacco Never smoker History [...] Reviewed 05/08/2011 12:00 AM Decadron 1 mg ND#[id number] (Eva) Reviewed 05/08/2011 12:00 AM Depo-Medrol 80 mg ND#[id number]-Jxrdjr te Reviewed 12/11/2015 12:00 AM Screening mammography, [...] AM Phenergan, Up to 50 Mg [facility]#7530-8180-54 Reviewed 06/01/2012 12:00 AM Toradol 60 Mg [facility]#2457-2396-60 Reviewed 06/01/2012 12:00 AM THER/PROPH/DIAG INJ SC/IM [...] Reviewed 03/06/2014 12:00 AM Depo-Medrol 80 mg NDC#[address]-77 Revi ewed 03/06/2014 12:00 AM Decadron, Per 1 Mg NDC# [address]-50 Re viewed 06/04/2014 12:00 AM THER/PROPH/DIAG INJ SC/IM Reviewed 06/04/2014 12:00 AM Depo-Medrol 80 mg NDC#[address]-40 Revi ewed 06/04/2014 12:00 AM Decadron, Per 1 Mg NDC# [address]-40 Re viewed 10/16/2014 12:00 AM THER/PROPH/DIAG INJ SC/IM Reviewed 10/16/2014 12:00 AM Decadron 8 mg NDC# [address]-40 Reviewe d 10/16/2014 12:00 AM Depo-Medrol 80 mg NDC#[address]-87 Revi ewed 10/23/2014 12:00 AM RADEX SPINE LUMBOSACRAL 2/3 VIEWS Review ed Results Summary Date and Description Results 07/17/2009 9:36 AM TEST UR NEGATIVE P REGNANCY TEST UR NEGATIVE 06/01/2012 12:00 PM INFLUENZA A & B NO INFLUENZA A OR B DETECTED 04/21/2017 2:24 PM Influenza A negative Influen za B negative History Of Immunizations Name Date Admin Mfg Name [facility] Code Trade Name Lot# Route Inj Vis [...] cy Group Number Start Date BCBS Bcbs [facility] [id number] N/ A [facility] Anyi Caldwell [id number] Friday, 2008 BCBS [employer] [place] [id number] 2008 Childrenpilar Johnson [facility] Childrenpilar [facility] [id number] 2 December [facility] [id number] Wednesday, 2010 [facility]ational [facility] [id number] Friday, January 27, 2012 BC[employer] [place] [id number] We April 18, 2014 Naonext Work Comp Naonext [id number] N/A Usd 506 USD 506 [id number] N/A [employer] [place] [id number] We February 27, 2015 [employer] [place] [id number] N/ A History of Encounters Visit Date Visit Type Provider 05/25/2017 Office visit Sondra Houser PRN 05/04/2017 Office visit Sondra Houser PRN 04/21/2017 Office visit Sondra Houser PRN 05/10/2016 Office visit Alli Iniguez NP 03/28/2016 Office visit Yoli Slade MANAGER ORGANIZATIONAL 12/05/2015 Office visit Mica Sloan DO 04/08/2015 Office visit Daniel Acosta APR N 03/07/2015 Office visit Daniel Acosta APR N 10/23/2014 Office visit Reggie Foy MD 10/16/2014 Office visit Reggie Foy MD 06/07/2014 Office visit Reggie Foy MD 06/04/2014 Office visit Daniel Acosta APR N 05/22/2014 Voided Reggie Foy MD 03/06/2014 Office visit Daniel Acosta APR N 08/01/2013 Office visit Lia pfeiffer MANAGER ORGANIZATIONAL 06/15/2012 Office visit Danilo Cantu MD 06/01/2012 Office visit Amna Marion MANAGER ORGANIZATIONAL 01/27/2012 Office visit Amna Marion MANAGER ORGANIZATIONAL 08/26/2011 Office visit Reggie Foy MD 05/08/2011 Office visit Amna Marion MANAGER ORGANIZATIONAL 04/24/2011 Office visit Danilo Cantu MD 01/30/2011 Office visit Amna Marion MANAGER ORGANIZATIONAL 09/30/2010 Office visit Reggie Foy MD 04/16/2010 Office visit Danilo Cantu MD 02/03/2010 Office visit Danilo Cantu MD 07/17/2009 Office visit Ivania MONDRAGON 01/28/2009 Nurse visit Regige Foy MD 01/10/2009 Office visit Reggie Foy MD 12/26/2008 Office visit Alexys Schultz MD
--- OUTSIDE RECORDS SUMMARY | 2019-09-12 10:00 | XMS REPORT | Continuity of Care Document ---
Demographics Preferred Language Unknown Marital Status Unknown Christian Affiliation Unknown Race Unknown Ethnic Group Unknown Author Organization Unknown Address Unknown Phone Unavailable Allergies Active Description Code Type Severity Reaction Onset Reported/Identified Relationship to Patient Clinical Status Yes PCN (penicillin) 52498548 CLASS N/A N/A Yes Penicillins [id number] Drug Aller gy Unknown Hives 09/05/2019 Yes sulfamethoxazole [id number] Drug Allergy Unknown Hives 09/05/2019 Yes trimethoprim [id number] Drug Allergy Unknown Hives 09/05/2019 Medications There is no data. Problems Date Dx Coded Attending Type Code Diagnosis Diagnosed By 09/19/2018 P M542 Cervi calgia 09/19/2018 S M546 Pain in thoracic spine 06/30/2019 S K769 Liver disease, unspecified 06/30/2019 S R109 Unspe cified abdominal pain 06/30/2019 P R160 Hepat omegaly, not elsewhere classified 06/30/2019 S R799 Abnor mal finding of blood chemistry, unspecified 09/06/2019 LEIA SANCHEZ DO Ot Z01.8 18 ENCOUNTER FOR OTHER PREPROCEDURAL EXAMIN 09/08/2019 LEIA SANCHEZ DO Ot Z01.8 18 ENCOUNTER FOR OTHER PREPROCEDURAL EXAMIN Procedures There is no data. Results Test Result Range Hgb A1c with eAG Estimation - 02/26/16 0 8:20 Hemoglobin A1c 5.7 % 4.8-5.6 Estim. Avg Glu (eAG) 117 mg/dL Allergen Profile, Basic Food - 03/28/18 08:30 Class Description Comment E192-ZrN Peanut <0.10 kU/L Class 0 H623-DmI Soybean <0.10 kU/L Class 0 S662-FrO Wheat <0.10 kU/L Class 0 O896-GnK Peerless <0.10 kU/L Class 0 I600-PeO Milk <0.10 kU/L Class 0 H775-SmB Pork <0.10 kU/L Class 0 D450-DmQ Beef 0.25 kU/L Class 0/I K589-TmU Chocolate/[place] <0.10 kU/L Clas s 0 F238-SlV Egg, Whole <0.10 kU/L Class 0 HJ25-QzF Food Mix (Seafoods) Negative Allergens, Zone 11 - 03/28/18 08:30 Class Description Comment E849-JeM Penicillium chrysogen <0.10 kU/L Class 0 D713-NzM Cladosporium herbarum <0.10 kU/L Class 0 Z143-VyR Aspergillus fumigatus <0.10 kU/L Class 0 F550-KoW Mucor racemosus <0.10 kU/L Clas s 0 Q386-EaI Alternaria alternata 1.49 kU/L Class III Z817-WvQ Stemphylium herbarum <0.10 kU/L Class 0 O677-DaY Plantain, Armenian 0.11 kU/L Cla ss 0/I H733-RzE Ragweed, Short 23.10 kU/L Class V W923-HkH Pigweed, Common <0.10 kU/L Clas s 0 C413-DoQ [place] 1.43 kU/L Class III R340-NtL B[place] Grass <0.10 kU/L Class 0 Q043-GwH Immanuel Grass <0.10 kU/L Class 0 T935-UcA [place], [place] <0.10 kU/L Class 0 R329-EiZ Maple/[place] <0.10 kU/L Clas s 0 E463-EpE [place], White <0.10 kU/L Class 0 G195-KgT Elm, Somali <0.10 kU/L Class 0 X776-ZtS [place] <0.10 kU/L Class 0 H248-WvO Maple [place] <0.10 kU/L Class 0 L612-WbH D pteronyssinus 6.54 kU/L Class IV R720-OpA D farinae 3.24 kU/L Class III S298-QiE Cat Dander 0.16 kU/L Class 0/I A713-AcI Dog Dander 0.10 kU/L Class 0/I O539-XzZ Cockroach, Somali 0.18 kU/L C lass 0/I I858-MgM Thistle, Yemeni <0.10 kU/L Cla ss 0 L160-JfC Sheep [place] <0.10 kU/L Class 0 H217-UxT [place] <0.10 kU/L Class 0 N927-CuN Magnus, White 0.11 kU/L Class 0/I Coronavirus SARS-CoV-2 SO 2018 0 13:20 Coronavirus Ab [Units/volume] in Serum Negative Negative Encounters ACCT No. Visit Date/Time Discharge Status Pt. Type Provider Facility Loc./Unit Complaint [id number] 06/30/2019 16:38:02 Document Registration [id number] 06/07/2019 13:45:24 Document Registration [id number] 06/05/2019 11:16:14 Document Registration [id number] 06/03/2019 23:53:53 Document Registration [id number] 06/03/2019 23:39:25 Document Registration [id number] 01/30/2019 16:14:43 Document Registration [id number] 01/30/2019 10:13:20 Document Registration [id number] 01/04/2019 09:00:12 Document Registration [id number] 09/05/2018 09:02:33 Document Registration [id number] 08/01/2018 10:55:07 Document Registration [id number] 07/22/2018 16:38:04 Document Registration [id number] 03/28/2018 16:08:16 Document Registration [id number] 02/22/2018 17:29:16 Document Registration [id number] 02/22/2018 15:59:12 Document Registration [id number] 12/30/2017 11:23:11 Document Registration [id number] 07/06/2017 15:20:19 Document Registration [id number] 06/24/2017 16:13:34 Document Registration [id number] 06/07/2017 09:34:00 Document Registration [id number] 05/27/2017 11:38:33 Document Registration [id number] 12/23/2016 08:39:10 Document Registration [id number] 04/01/2018 17:05:00 Document Registration [id number] 01/06/2017 10:20:00 01/06/2017 23:59: 00 DIS Outpatient Edmund Fonseca [facility] [place] [id number] 07/10/2019 15:16:35 07/10/2019 23:59: 59 CLS Outpatient Priya Pinto [id number] 06/19/2019 10:33:54 06/19/2019 23:59: 59 CLS Outpatient Priya Pinto [id number] 06/07/2019 11:59:45 06/07/2019 23:59: 59 CLS Outpatient Priya Pintoy [id number] 06/05/2019 10:51:56 06/05/2019 23:59: 59 CLS Outpatient Swejessicangin, Priya Nicoley [id number] 04/18/2019 16:03:09 04/18/2019 23:59: 59 CLS Outpatient Swejessicangin, Priya Mccurdy [id number] 02/08/2019 11:35:34 02/08/2019 23:59: 59 CLS Outpatient Swejessicangin, Priya Mccurdy [id number] 01/30/2019 09:02:59 01/30/2019 23:59: 59 CLS Outpatient Swejessicangin, Priya Mccurdy [id number] 10/05/2018 12:21:24 10/05/2018 23:59: 59 CLS Outpatient HariSharon [id number] 08/24/2018 16:26:37 08/24/2018 23:59: 59 CLS Outpatient Amna Marion [id number] 08/01/2018 11:03:04 08/01/2018 23:59: 59 CLS Outpatient Amna Marion [id number] 07/27/2018 15:15:26 07/27/2018 23:59: 59 CLS Outpatient Millie, Priya Mccurdy [id number] 07/22/2018 16:18:57 07/22/2018 23:59: 59 CLS Outpatient Christal Gamez [id number] 05/05/2018 14:59:23 05/05/2018 23:59: 59 CLS Outpatient Christal Gamez [id number] 03/28/2018 08:49:56 03/28/2018 23:59: 59 CLS Outpatient Swejessicangin, Priya Nicoley [id number] 02/22/2018 15:52:40 02/22/2018 23:59: 59 CLS Outpatient Swejessicangin, Priya Nicoley [id number] 12/23/2017 14:50:43 12/23/2017 23:59: 59 CLS Outpatient Swejessicangin, Priya Calli [id number] 06/24/2017 08:51:26 06/24/2017 23:59: 59 CLS Outpatient Hiwotngin, Priya Calli [id number] 06/07/2017 09:46:37 06/07/2017 23:59: 59 CLS Outpatient Swearengin, Priya Calli [id number] 05/25/2017 14:33:01 05/25/2017 23:59: 59 CLS Outpatient Priya Pinto [id number] 05/04/2017 16:37:34 05/04/2017 23:59: 59 CLS Outpatient Priya Pinto [id number] 04/21/2017 14:50:11 04/21/2017 23:59: 59 CLS Outpatient Priya Pinto [id number] 05/10/2016 16:17:22 05/10/2016 23:59: 59 CLS Outpatient Alli Iniguez [id number] 03/28/2016 13:45:33 03/28/2016 23:59: 59 CLS Outpatient Yoli Slade [id number] 12/05/2015 17:36:56 12/05/2015 23:59: 59 CLS Outpatient Mica Sepulveda [id number] 04/08/2015 10:13:47 04/08/2015 23:59: 59 CLS Outpatient Daniel Acosta [id number] 03/07/2015 20:33:43 03/07/2015 23:59: 59 CLS Outpatient Daniel Acosta [id number] 11/26/2014 22:10:21 11/26/2014 23:59: 59 CLS Outpatient Reggie Foy [id number] 11/26/2014 22:06:29 11/26/2014 23:59: 59 CLS Outpatient Reggie Foy [id number] 05/22/2014 15:20:13 05/22/2014 23:59: 59 CLS Outpatient Reggie Foy [id number] 03/06/2014 14:47:11 03/06/2014 23:59: 59 CLS Outpatient Daniel Acosta [id number] 08/01/2013 09:38:01 08/01/2013 23:59: 59 CLS Outpatient Matti Lia M [id number] 04/01/2018 17:05:00 Document Registration [id number] 02/27/2016 13:06:00 Document Registration [id number] 09/08/2019 08:52:00 14:42:00 DIS Outpatient LEIA SANCHEZ DO [facility] PREOP UTERINE FIBROID, STRESS URINARY INCONTINENCE [id number] 09/12/2019 09:45:00 P EN Preadmit LEIA SANCHEZ DO [facility] SDC UTERINE FIBROID, STRESS URIN JOSSE INCONTINENCE
[2019-09-12] MEDS ORDERED: VASOPRESSIN INJECTION 20 UNIT/ML VIAL ONE (10:36)
[2019-09-12] MEDS ORDERED: NS (IVPB) 100 ML ONE (10:36)
[2019-09-12] MEDS ORDERED: BUP/EPI 0.5% 1:200,000 (SENSORCAINE) 30 ML VIAL ONE (10:37)
[2019-09-12] MEDS ORDERED: fentaNYL INJECTION 100 MCG/2 ML AMP ONE ×2 (10:47→16:32)
--- NOTE | 2019-09-12 10:47 | History & Physical-Surgical ---
HPO-Surgical History of Present Illness Chief Complaint: abnormal uterine bleeding, stress incontinence Diagnosis/Surgical Indication: UTERINE FIBROIDS, PROLAPSE, ANEMIA, stress incontinence Procedure: RaTH, bilateral salpingectomy, possible BSO anterior posterior colporrhaphy Pubovaginal sling Date of Surgery: September 12, 2019 Allergies and Home Medications Allergies Coded Allergies: Penicillins (Verified Allergy, Unknown, Hives, 09/05/19) sulfamethoxazole (Verified Allergy, Unknown, Hives, 09/05/19) trimethoprim (Verified Allergy, Unknown, Hives, 09/05/19) Home Medications Cetirizine HCl 10 Mg Tablet, 10 MG PO DAILY, (Reported) Montelukast Sodium 10 Mg Tablet, 10 MG PO HS, (Reported) Patient Home Medication List Home Medication List Reviewed: Yes Past Exnhtee-Xwjxvs-Tumvbu Hx Patient Social History Marrital Status: Number of Children: 3 Number of living children: 3 Employed/Student: employed Alcohol Use: Denies Use Recreational Drug Use: No Smoking Status: Never a Smoker Recent Foreign Travel: No Contact w/other who traveled: No Recent Hopitalizations: No Seasonal Allergies Seasonal Allergies: Yes Surgeries Yes (BREAST LUMPECTOMY; tubal ligation) Respiratory Yes Currently Using CPAP: Yes Cardiovascular No Neurological No Reproductive System Hx : 3 Hx Para: 3 Genitourinary No Gastrointestinal No Musculoskeletal No Endocrine History of Endocrine Disorders: No HEENT History of HEENT Disorders: No Cancer No Psychosocial History of Psychiatric Problem: No Integumentary History of Skin or Integumenta: No Blood Transfusions History of Blood Disorders: No Family Medical History Family Hx: Asthma 19 MOTHER Diabetes mellitus 19 FATHER G8 BROTHER FH: uterine cancer 19 MOTHER Hypertension 19 FATHER G8 BROTHER Myocardial infarction 19 FATHER Exam Vital Signs Vital Signs 09/12/19 09:40 Temp 36.6 Pulse 88 Resp 20 B/P (MAP) 140/95 (110) Pulse Ox 97 O2 Delivery Room Air Capillary Refill : Labs Laboratory Tests Test 09/12/19 09:30 09/12/19 09:45 Range/Units Urine Color YELLOW Urine Clarity CLEAR Urine pH 7.0 5-9 Urine Specific [place] 1.015 L 1.016-1.022 Urine Protein NEGATIVE NEGATIVE Urine Glucose (UA) NEGATIVE NEGATIVE Urine Ketones 1+ H NEGATIVE Urine Nitrite NEGATIVE NEGATIVE Urine Bilirubin NEGATIVE NEGATIVE Urine Urobilinogen 0.2 < = 1.0 MG/DL Urine Leukocyte Esterase NEGATIVE NEGATIVE Urine RBC (Auto) NEGATIVE NEGATIVE Urine RBC NONE /HPF Urine WBC 0-2 /HPF Urine Squamous Epithelial Cells 2-5 /HPF Urine Crystals NONE /LPF Urine Bacteria TRACE /HPF Urine Casts NONE /LPF Urine Mucus SMALL H /LPF Urine Culture Indicated NO White Blood Count 8.9 4.3-11.0 10^3/uL Red Blood Count 4.81 4.35-5.85 10^6/uL Hemoglobin 13.8 11.5-16.0 G/DL Hematocrit 40 35-52 % Mean Corpuscular Volume 84 80-99 FL Mean Corpuscular Hemoglobin 29 25-34 PG Mean Corpuscular Hemoglobin Concent 34 32-36 G/DL Red Cell Distribution Width 14.9 H 10.0-14.5 % Platelet Count 299 130-400 10^3/uL Mean Platelet Volume 10.1 7.4-10.4 FL Neutrophils (%) (Auto) 71 42-75 % Lymphocytes (%) (Auto) 21 12-44 % Monocytes (%) (Auto) 7 0-12 % Eosinophils (%) (Auto) 2 0-10 % Basophils (%) (Auto) 0 0-10 % Neutrophils # (Auto) 6.3 1.8-7.8 X 10^3 Lymphocytes # (Auto) 1.9 1.0-4.0 X 10^3 Monocytes # (Auto) 0.6 0.0-1.0 X 10^3 Eosinophils # (Auto) 0.2 0.0-0.3 10^3/uL Basophils # (Auto) 0.0 0.0-0.1 10^3/uL General Appearance: Alert, Oriented X3, Cooperative HEENT: Atraumatic, PERRLA Respiratory: Clear to Auscultation, Normal Air Movement Cardiovascular: Regular Rate Neuro: Strength at 5/5 X4 Ext Assessment/Plan Assessment and Plan 1. Uterine fibroids 2. Abnormal uterine bleeding 3. Anemia 4. Prolapse 5. Stress incontinence Plan - RaTH, bilateral salpingectomy, possible BSO AP repair PV sling See previous h&P LEIA SANCHEZ DO September 12, 2019 10:47
[2019-09-12] MEDS ORDERED: MIDAZOLAM 2 MG/2 ML (VERSED) VIAL ONE (10:48)
[2019-09-12] MEDS: LACTATED RINGERS 1,000 ML IV PRN ×3 (11:14→15:50)
[2019-09-12] MEDS ORDERED: ROCURONIUM 10 MG/ML 5 ML SYRINGE IV ONE ×2 (12:53→15:09)
[2019-09-12] MEDS ORDERED: ONDANSETRON 4 MG/2 ML (SDV) Z0FRAN ONE (12:53)
[2019-09-12] MEDS ORDERED: LIDOCAINE PF 2% 5 ML (XYLOCAINE) VIAL ONE (12:53)
[2019-09-12] MEDS ORDERED: SEVOFLURANE (ULTANE) 15 ML INHAL SOLN ONE ×17 (12:53→16:47)
[2019-09-12] MEDS ORDERED: proPOfol 200 MG/20 ML (DIPRIVAN) VIAL IV ONE (12:53)
[2019-09-12] MEDS ORDERED: LACTATED RINGERS 1,000 ML IV ONE (12:53)
[2019-09-12] MEDS ORDERED: HYDROmorphone 2 MG/ML VIAL (DILAUDID) ONE ×2 (14:33→14:43)
[2019-09-12] MEDS ORDERED: ceFAZolin INJECTION 0 MG ONE (15:29)
[2019-09-12] MEDS ORDERED: PHENYLEPHRINE 100 MCG/ML 10 ML (ANESTHESIA) SYR ONE (15:35)
[2019-09-12] MEDS ORDERED: metroNIDAZOLE 500MG/100ML IVPB 100 ML ONE (15:51)
--- NOTE | 2019-09-12 16:04 | Operative Report ---
Operative Report Date of Procedure/Surgery September 12, 2019 Surgeon (s) LEIA SANCHEZ DO Tail Trimmer (s): N Post-Operative Diagnosis fibroid uterus left ovarian cyst tubal cysts tubal interruption enteropelvic adhesions bowel injury Procedure Performed RaTh bilateral salpingectomy Left ovarian cystectomy Description of Procedure Anesthesia Type: General Estimated blood loss (mL): 100 Specimen(s) collected/removed uterus (314 grams), bilateral tubal remnants, tubal cysts left ovarian cyst wall Description of the Procedure After informed consent was obtained, patient was taken into the operating room where general anesthetic was found to be adequate. She was prepped and draped in the usual sterile fashion in the dorsal lithotomy position. A Chan catheter was placed. A speculum was placed in the vagina. . The cervix was visualized and the anterior lip was grasped with a sharp toothed tenaculum. The uterus was sounded and depth was approximately 12 centimeters. I placed the Ely device (12 cm) and a 3.0 cm collar was advanced over the cervix. I inserted the Ely without difficulty, inflating the balloon and securing it around the fornix of the cervix. The collar was then secured with sutures at 12 o'clock. Attention was then turned to the patient's abdomen. A supraumbilical incision was made about 8 mm. A Veress needle was inserted and I confirmed intraabdominal placement with a drop in pressure and the saline drop test. The opening pressure was 7 mmHg. I then insufflated the abdomen to a maximum of 15 mmHg with warmed CO2 gas. I placed an additional 8 mm trocar in the left abdomen lateral to the umbilicus approximately 15 cm. The second robotic port was placed about 12 cm lateral to the right placement. This was an 8 mm trocar. These were placed under direct visualization of the laparoscope. 0.25% Marcaine was injected prior to placement of all trocars. When all placements were confirmed, the patient was placed in steep Trendelenburg allowing adequate visualization and the robot was brought in for docking. It was determined that this could be accomplished robotically. The docking was accomplished without difficulty. I then took over the command of the robot utilizing the vessel sealer and monopolar tiago. The patient had a known umbilical hernia palpated on exam. She had adhesions of the omentum to the tubes and the back of the uterus as well as the anterior abdominal wall. I took the adhesions to the abdominal wall down before I could adequately visualize the uterus. This was accomplished with the tiago. Now, I was able to visualize the round ligaments bilaterally and grasped them and cauterized with bipolar cautery and then cut with my tiago. At this point, I then did bilateral salpingectomy. There were also adhesions of the omentum to the right tube and the back of the uterus. These were taken down with the tiago. I incised the mesosalpinx with the tiago. Then, I grasped with cornu and transected bilaterally using the vessel sealer. I then moved my dissection to the posterior leaves of the broad ligament. I dissected the posterior leaves of the broad ligament off the uterine arteries skeletonizing them bilaterally. I then took a second clamp with the bipolar cautery and with the tiago, transected the vessels away from the lateral aspect to the cervical stroma. I dissected the anterior peritoneum off the lower uterine segment. I continually pushed the bladder back and I took excessively great care and I was eventually able to dissect the vesicouterine peritoneum off the lower uterine segment. I then dissected in a V fashion towards the midline between the uterosacral ligaments. This allowed me to skeletonize the uterine vessels bilaterally. The balloon on the ELY was insufflated. This allowed me to see the ELY circumferentially. I then performed a colpotomy anteriorly and then amputate with cervix away from the vaginal fornix. I then continued the colpotomy circumferentially. Once this was performed, the real estate administrative assistant removed the uterus, tubes and ovaries through the vagina. This was very difficult and could not be accomplished easily. The real estate administrative assistant attempted this multiple times and inserted an endocatch to remove the uterus. This was defective, and it was determined later it caused a laceration of the bowel. However, I was eventually able to scrub back in to the surgery from the robot and remove the uterus with some difficulty. This was 314 grams. I then resumed the robotic controls. at this point the left ovarian cyst was removed with the cautery and placed through the colpotomy to be sent for pathology. I then began closure of the vaginal cuff. The uterus was left in the vagina to maintain pneumoperitoneum. I closed the apices of the vaginal cuff with 2-0 Vicryl V lock sutures with a colposuspension through the uterosacral ligaments. This suspended the apices of the vaginal cuff. I extended this to the midline from both sides and overlapped the V lock sutures in the midline. Excellent closure is noted and hemostasis is achieved. At this point, however, I noted a clean laceration in the bowel. There were some round adhesions that had been taken down, but there was a clean laceration of the colon and I asked Dr. Emanuel to take a look. He then scrubbed in after the hysterectomy was completed. All the needles were removed from the patient's abdomen. There was a cyst noted on the right ovary. The ovary otherwise appeared normal. I perforated and fulg erated the cyst and drained clear fluid. I did not remove the ovary or the cyst wall. Now, the robotic instruments were removed and the robot was docked back to laparoscopy. The pelvis was irrigated. There was no active bleeding noted. Bilateral ureters were seen the entire time during the surgery and were peristalsing. There was no excessive bleeding noted. The trocars were removed under direct visualization. The laparoscopic sites were visualized and found to be hemostatic. The trocar sites were injected with 0.25% Marcaine. The skin incisions were closed with 4-0 Monocryl in a subcuticular fashion and then with Dermabond. Op sites were placed over the incision sites. The instruments were removed from the vagina and I noted there were no abrasions. Dr. Emanuel now scrubbed in for the remainder of the procedure. Sponge, lap, needle and instrument counts correct times two. Patient was awakened and taken to recovery in a stable condition Findings of the Procedure Very enlarged uterus with multiple fibroids (palpated at least 6, firm and nodular), boggy uterus, Allergies and Home Medications Allergies Coded Allergies: Penicillins (Verified Allergy, Unknown, Hives, 09/05/19) sulfamethoxazole (Verified Allergy, Unknown, Hives, 09/05/19) trimethoprim (Verified Allergy, Unknown, Hives, 09/05/19) Home Medications Acetaminophen 500 Mg Tablet, 1,000 MG PO Q8HR Prescribed by: LEIA SANCHEZ on 09/14/19 1252 Cetirizine HCl 10 Mg Tablet, 10 MG PO DAILY, (Reported) Docusate Sodium 100 Mg Capsule, 100 MG PO BID Prescribed by: LEIA SANCHEZ on 09/14/19 1252 Ibuprofen 600 Mg Tablet, 600 MG PO Q6H Prescribed by: LEIA SANCHEZ on 09/14/19 125 Montelukast Sodium 10 Mg Tablet, 10 MG PO HS, (Reported) Oxycodone HCl 5 Mg Tablet, 5 MG PO Q4HR PRN for To achieve TAG Prescribed by: LEIA SANCHEZ on 09/14/191251 Simethicone 80 Mg Tab.chew, 80 MG PO Q2HR PRN for gas Prescribed by: LEIA SANCHEZ on 09/14/191251 Trazodone HCl 50 Mg Tablet, 25 MG PO HS PRN for SLEEP Prescribed by: LEIA SANCHEZ on 09/14/191251 Patient Home Medication List Home Medication List Reviewed: Yes LEIA SANCHEZ DO September 12, 2019 16:04
[2019-09-12] MEDS ORDERED: morphine INJ 4 MG/ML 1 ML (VIAL/SYRINGE) IVP PRN (16:15)
[2019-09-12] MEDS ORDERED: NEOSTIGMINE 3 MG/3 ML VIAL ONE (16:28)
[2019-09-12] MEDS ORDERED: GLYCOPYRROLATE 0.2 MG/ML (ROBINUL) 2 ML VIAL ONE (16:28)
--- NOTE | 2019-09-12 17:11 | Progress Note-Post Operative ---
Post-Operative Progess Note Surgeon (s)/Labor Relations Analyst (s) Surgeon DANUTA MARTÍNEZ DO Labor Relations Analyst: Dr. Seals Pre-Operative Diagnosis rectal perforation Post-Operative Diagnosis same Procedure & Operative Findings Date of Procedure 09/12/19 Procedure Performed/Findings laparoscopic hand assisted low anterior resection Anesthesia Type general Estimated Blood Loss Estimated blood loss (mL): minimal Specimens/Packing Specimens Removed rectum DANUTA MARTÍNEZ DO September 12, 2019 17:11
[2019-09-12] MEDS ORDERED: HYDROmorphone 2 MG/ML VIAL (DILAUDID) IV ONE (17:30)
[2019-09-12] MEDS ORDERED: ONDANSETRON 4 MG/2 ML (SDV) Z0FRAN IVP PRN (17:30)
[2019-09-12] MEDS: LACTATED RINGERS 1,000 ML IV SCH ×2 (17:37→18:51)
[2019-09-12] MEDS: KETOROLAC 30 MG/ML VIAL IV SCH ×2 (17:55→22:07)
--- NOTE | 2019-09-12 18:20 | NUR ---
PT TO ROOM 411 FROM RECOVERY. REPORT RECEIVED FROM KAYE VILLEDA. PT DROWSY BUT ANSWERS QUESTIONS APPROPRIATELY. VS WNL. TOWNSEND DRAINING TO DEPENDENT DRAINAGE. PT MAIN COMPLAINT IS FEELING IF SOMETHING IS IN HER LEFT EYE. FLUSHED EYE MULTIPLE TIMES REQUESTED BY PT WITH NS. PT REPORTS RELIEF WHEN BEING FLUSHED. IV TO LEFT AC INFUSING LR WITHOUT DIFFICULTY. PT HAS CALL LIGHT WITHIN REACH. PT UPDATED ON PLAN OF CARE. Addendum: 09/12/19 at 2009 by PAUL SEALS RN LCTA. HRR. NO EDEMA NOTED.
--- NOTE | 2019-09-12 18:58 | NUR ---
Dr. Emanuel phoned to clarify scheduled antibiotics (he wants Ancef 2gm IV x 2 bags & Flagyl 500 mg IV x 2 bags only given post-op). Will update EMAR.
[2019-09-12] MEDS ORDERED: ceFAZolin INJECTION 1,000 MG ONE (20:10)
[2019-09-12] MEDS ORDERED: WATER (STERILE) FOR INJECTION 0 ML ONE (20:10)
[2019-09-12] MEDS: ceFAZolin 2 GM IV Premixed 50 ML IV SCH (20:50)
[2019-09-12] MEDS: traZODone 50 MG (DESYREL) TAB PO SCH (20:58)
[2019-09-12] MEDS: ACETAMINOPHEN 500 MG TAB (TYLENOL) PO SCH (21:03)
--- NOTE | 2019-09-12 21:45 | OPERATIVE REPORT ---
DATE OF SERVICE: 09/12/2019 PREOPERATIVE DIAGNOSIS: Bowel perforation. POSTOPERATIVE DIAGNOSIS: Bowel perforation. PROCEDURE PERFORMED: Laparoscopic hand-assisted low anterior resection with end-to-end anastomosis. SURGEON: Jose Manuel Emanuel DO. RECEIVING SPECIALIST: Dr. Seals, who assisted in retraction, dissection and closure and stapling. ESTIMATED BLOOD LOSS: Minimal. COMPLICATIONS: None. INDICATIONS FOR PROCEDURE: The patient is a 49-year-old female undergoing robotic hysterectomy. It was recognized that there is a bowel perforation in the rectum. DESCRIPTION OF PROCEDURE: I was called in to the operating to evaluate. Under robotic laparoscopy, the bowel perforation was able to be visualized. At this time, the robotic was undocked and the patient was placed in lithotomy position. A midline incision was made from the umbilicus inferiorly down through the subcutaneous tissues and the fascia was then opened. A hand port was placed through this incision. Using the existing trocars on the left lower quadrant and right lower quadrant. The rectum was then dissected bilaterally with both blunt and cautery dissection, dissecting just distal to the perforation. Once this was able to be performed, a contour stapler was then fired. A LigaSure was then used to begin dividing the mesentery proximally and then anastomotic stapler, 29 anvil was then inserted through the perforation and on the proximal portion, the bowel was then dissected around and a contour stapler reload was then fired. Using LigaSure, the mesentery was divided until the specimen was removed. The anvil was then brought out through the staple line and the splenic flexure was mobilized minimally to give adequate length for a tension-free anastomosis. Dr. Seals went down below, serially dilated the anus and rectum and we then inserted the stapler, which then was fired in the usual fashion and was removed, giving two good rings. The pelvis was then filled with irrigation and Dr. Seals placed a sigmoidoscope within the rectum and inflated. There were no bubbles or any evidence of anastomotic leak. He was able to visualize the anastomosis, which was intact. The abdomen was then irrigated with copious amounts of irrigation and suction. The fascia was then closed using 1-0 looped PDS in a running fashion. The abdominal wound was then irrigated with copious amounts of irrigation. The abdomen was then reinsufflated. No other pathology was visualized. The abdomen was then desufflated, the trocars were removed and the skin was then staple closed. The abdomen was then washed and dried and the sterile bandages were applied. The patient tolerated the procedure well without any complications. She was taken to the recovery room in a stable condition. Job ID: [id number] DocumentID: [id number] Dictated Date: 09/12/2019 19:11:01 Set Key Driver Date: 09/12/2019 21:44:39 Dictated By: DO ARVIN IRVING
[2019-09-12] MEDS ORDERED: ceFAZolin INJECTION 1,000 MG in WATER (STERILE) FOR INJECTION 10 ML IV SCH (22:00)
[2019-09-12] MEDS ORDERED: metroNIDAZOLE 500MG/100ML IVPB 100 ML IV SCH (22:00)
[2019-09-12] MEDS: metroNIDAZOLE 500MG/100ML IVPB 100 ML IV SCH (22:06)
[2019-09-12] MEDS ORDERED: PANTOPRAZOLE 40 MG (PROTONIX) VIAL ONE (22:51)
--- NOTE | 2019-09-12 22:56 | NUR ---
Dr. Emanuel notified of pt's complaints of Epigastric and "clavicle" pain. (Pt reports having a hiatal hernia). New order rec to start Protonix 40mg IV tonight and then Daily. Addendum: 09/13/19 at 0245 by KEYLA BATRES Pt assured that "clavicle" pain is a typical complaint in post operative patients due to surgical gas used OR (Dr. Emanuel agrees that the "clavicle" pain is attributed to this). Will continue to monitor.
[2019-09-12] MEDS: PANTOPRAZOLE 40 MG (PROTONIX) VIAL IV SCH (23:01)
--- NOTE | 2019-09-12 23:08 | NUR ---
Dr. Garcia notified of pt's continued complaints of "clavicle" pain and states she is afraid she is having a heart attack. Pt is requesting an EKG tracing or "heart monitor." New orders rec for Telemetry, decrease IVF to 125 mls/hr, and increase morphine sulfate from 2mg to 2-4mg IV. Will continue to monitor.
[2019-09-13] VITALS (8 sets, daily range): BP systolic 116–158; BP diastolic 56–88
[2019-09-13] MEDS: morphine INJ 4 MG/ML 1 ML (VIAL/SYRINGE) IVP PRN ×3 (00:57→07:33)
[2019-09-13] MEDS: LACTATED RINGERS 1,000 ML IV SCH ×3 (00:57→18:21)
[2019-09-13] MEDS: KETOROLAC 30 MG/ML VIAL IV SCH ×2 (03:47→10:24)
[2019-09-13] MEDS: ceFAZolin 2 GM IV Premixed 50 ML IV SCH (03:47)
[2019-09-13] MEDS: metroNIDAZOLE 500MG/100ML IVPB 100 ML IV SCH (05:43)
[2019-09-13] MEDS: ACETAMINOPHEN 500 MG TAB (TYLENOL) PO SCH ×3 (05:44→23:21)
--- NOTE | 2019-09-13 06:00 | NUR ---
Up to chair with assist x 2. Rating pain at 2:10. Call light within reach. Will continue to monitor.
[2019-09-13] MEDS ORDERED: ENOXAPARIN 40 MG/0.4 ML (LOVENOX) SYR SC SCH (09:00)
[2019-09-13] MEDS: PANTOPRAZOLE 40 MG (PROTONIX) VIAL IV SCH (09:18)
--- NOTE | 2019-09-13 09:21 | Progress Note ---
Subjective Date Seen by a Provider: September 13, 2019 Time Seen by a Provider: 09:10 Subjective/Events-last exam Complained of "chest pain" (points to clavicle) thought to be related to surgery (gas/insufflation) so was rx protonix/simethicone, but patient requested telemetry bc she was concerned about her heart. No real heart complaints however. Telemetry neg. Also was having subjective bladder spasms. UO was adequate so flow rate reduced. No flatus or belching Just returned from a walk. States she is "feeling better than last night". Day 1 s/p RaTH, bilateral salpingectomy, left ovarian cystectomy, bowel injury with reanastomosis. Has been up to chair. Will DC harden. Advance diet per surgery, but tolerating clears. She is unwilling to move much so encourage ambulation. Labs pending today. Encourage IS. SVDs and Lovenox for DVT prophylaxis. Will transfer to [facility] if necessary and surgery agrees. 09/12/19 09/13/19 09/13/19 09/13/19 23:40 00:17 01:00 04:00 Temp 37.1 36.9 Pulse 88 86 88 77 Resp 21 20 B/P (MAP) 135/64 (87) 133/63 (86) Pulse Ox 96 91 O2 Delivery NIV CPAP NIV CPAP O2 Flow Rate 2.00 09/13/19 09/13/19 07:03 08:11 Temp 36.9 Pulse 72 72 Resp 20 B/P (MAP) 121/56 (77) Pulse Ox 94 O2 Delivery Nasal Cannula O2 Flow Rate 2.00 09/13/19 00:00 Intake Total 260 ml Output Total 475 ml Balance -215 ml Laboratory Tests Test 09/12/19 09:30 09/12/19 09:45 Range/Units Urine Color YELLOW Urine Clarity CLEAR Urine pH 7.0 5-9 Urine Specific [place] 1.015 L 1.016-1.022 Urine Protein NEGATIVE NEGATIVE Urine Glucose (UA) NEGATIVE NEGATIVE Urine Ketones 1+ H NEGATIVE Urine Nitrite NEGATIVE NEGATIVE Urine Bilirubin NEGATIVE NEGATIVE Urine Urobilinogen 0.2 < = 1.0 MG/DL Urine Leukocyte Esterase NEGATIVE NEGATIVE Urine RBC (Auto) NEGATIVE NEGATIVE Urine RBC NONE /HPF Urine WBC 0-2 /HPF Urine Squamous Epithelial Cells 2-5 /HPF Urine Crystals NONE /LPF Urine Bacteria TRACE /HPF Urine Casts NONE /LPF Urine Mucus SMALL H /LPF Urine Culture Indicated NO White Blood Count 8.9 4.3-11.0 10^3/uL Red Blood Count 4.81 4.35-5.85 10^6/uL Hemoglobin 13.8 11.5-16.0 G/DL Hematocrit 40 35-52 % Mean Corpuscular Volume 84 80-99 FL Mean Corpuscular Hemoglobin 29 25-34 PG Mean Corpuscular Hemoglobin Concent 34 32-36 G/DL Red Cell Distribution Width 14.9 H 10.0-14.5 % Platelet Count 299 130-400 10^3/uL Mean Platelet Volume 10.1 7.4-10.4 FL Neutrophils (%) (Auto) 71 42-75 % Lymphocytes (%) (Auto) 21 12-44 % Monocytes (%) (Auto) 7 0-12 % Eosinophils (%) (Auto) 2 0-10 % Basophils (%) (Auto) 0 0-10 % Neutrophils # (Auto) 6.3 1.8-7.8 X 10^3 Lymphocytes # (Auto) 1.9 1.0-4.0 X 10^3 Monocytes # (Auto) 0.6 0.0-1.0 X 10^3 Eosinophils # (Auto) 0.2 0.0-0.3 10^3/uL Basophils # (Auto) 0.0 0.0-0.1 10^3/uL Lungs CTA Poor effort Heart RRR Abdomen - soft, mild distension, hypoactive BS x [address] A: 1. POD 1 s/p RaTH - bilateral salpingectomy with left ovarian cyst. bowel injury 2. S/p reanastomosis of bowel 3. hypoxia/poor respiratory effort (suspect sleep apnea) P: Routine post operative care encourage IS ambulate CLD may consider advance tomorrow MAT protocol DC [place] Objective Exam Vital Signs Date Time Temp Pulse Resp B/P (MAP) Pulse Ox O2 Delivery O2 Flow Rate FiO2 09/13/19 08:11 36.9 72 20 121/56 (77) 94 Nasal Cannula 2.00 09/13/19 07:03 72 09/13/19 04:00 36.9 77 20 133/63 (86) 91 NIV CPAP 2.00 09/13/19 01:00 88 09/13/19 00:17 37.1 86 21 135/64 (87) 96 NIV CPAP 09/12/19 23:40 88 09/12/19 20:00 96 NIV CPAP 2.00 09/12/19 19:17 36.0 79 16 149/87 (107) 96 Nasal Cannula 2.00 09/12/19 18:43 36.1 76 14 155/89 (111) 96 Nasal Cannula 2.00 09/12/19 18:20 Nasal Cannula 2 09/12/19 18:20 36.4 18 153/80 (104) 94 Nasal Cannula 2 09/12/19 18:10 18 151/82 (105) 95 Nasal Cannula 2 09/12/19 18:06 Nasal Cannula 2 09/12/19 18:00 Room Air 09/12/19 18:00 18 150/91 (110) 94 Room Air 09/12/19 17:53 OxyMask 5 09/12/19 17:50 18 119/81 (94) 96 OxyMask 5 09/12/19 17:46 OxyMask 6 09/12/19 17:40 18 149/83 (105) 94 OxyMask 6 09/12/19 17:35 OxyMask 6 09/12/19 17:30 18 146/79 (101) 95 OxyMask 6 09/12/19 17:21 OxyMask 6 09/12/19 17:21 36.5 12 156/84 (108) 99 OxyMask 6 09/12/19 09:40 36.6 88 20 140/95 (110) 97 Room Air I & O 09/13/19 07:00 Intake Total 1660 ml Output Total 1175 ml Balance 485 ml Capillary Refill : Less Than 3 Seconds General Appearance: WD/WN Results Lab Laboratory Tests 09/12/19 09:30: Urine Color YELLOW, Urine Clarity CLEAR, Urine pH 7.0, Urine Specific [place] 1 .015L, Urine Protein NEGATIVE, Urine Glucose (UA) NEGATIVE, Urine Ketones 1+H, Urine Nitrite NEGATIVE, Urine Bilirubin NEGATIVE, Urine Urobilinogen 0.2, Urine Leukocyte Esterase NEGATIVE, Urine RBC (Auto) NEGATIVE, Urine RBC NONE, Urine WBC 0-2, Urine Squamous Epithelial Cells 2-5, Urine Crystals NONE, Urine Bacteria TRACE, Urine Casts NONE, Urine Mucus SMALLH, Urine Culture Indicated NO 5/26/20 09:45: White Blood Count 8.9, Red Blood Count 4.81, Hemoglobin 13.8, Hematocrit 40, Mean Corpuscular Volume 84, Mean Corpuscular Hemoglobin 29, Mean Corpuscular Hemoglobin Concent 34, Red Cell Distribution Width 14.9H, Platelet Count 299, Mean Platelet Volume 10.1, Neutrophils (%) (Auto) 71, Lymphocytes (%) (Auto) 21, Monocytes (%) (Auto) 7, Eosinophils (%) (Auto) 2, Basophils (%) (Auto) 0, Neutrophils # (Auto) 6.3, Lymphocytes # (Auto) 1.9, Monocytes # (Auto) 0.6, Eosinophils # (Auto) 0.2, Basophils # (Auto) 0.0 Microbiology 09/12/19 MRSA Screen - Final, Complete MRSA not isolated Assessment/Plan Assessment/Plan Assess & Plan/Chief Complaint see above Clinical Quality Measures Admission Status Admission Dx 1. Uterine fibroids 2. Abnormal uterine bleeding 3. Anemia 4. Prolapse 5. Stress incontinence Plan - RaTH, bilateral salpingectomy, possible BSO AP repair PV sling See previous h&P DVT/VTE Risk/Contraindication: Risk Factor Score Per Nursin RFS Level Per Nursing on Admit: 4+=Very High LEIA SANCHEZ DO September 13, 2019 09:20
[2019-09-13 10:00] LABS: BASOPHILS % (AUTO) 0 % (0-10); EOSINOPHILS % (AUTO) 0 % (0-10); HEMATOCRIT 36 % (35-52); HEMOGLOBIN 11.5 G/DL (11.5-16.0); LYMPHOCYTES # (AUTO) 1.1 X 10^3 (1.0-4.0); LYMPHOCYTES % (AUTO) 11 % (12-44); MEAN CORPUSCULAR HEMOGLOBIN 28 PG (25-34); MEAN CORPUSCULAR HGB CONC 32 G/DL (32-36); MEAN CORPUSCULAR VOLUME 86 FL (80-99); MEAN PLATELET VOLUME 10.1 FL (7.4-10.4); MONOCYTES # (AUTO) 0.7 X 10^3 (0.0-1.0); MONOCYTES % (AUTO) 7 % (0-12); NEUTROPHILS # (AUTO) 8.2 X 10^3 (1.8-7.8); NEUTROPHILS % (AUTO) 82 % (42-75); PLATELET COUNT 259 10^3/uL (130-400)
[2019-09-13 10:19] LABS: ALANINE AMINOTRANSFERASE 13 U/L (0-55); ALBUMIN 3.3 GM/DL (3.2-4.5); ALKALINE PHOSPHATASE 63 U/L (40-136); BILIRUBIN,TOTAL 0.7 MG/DL (0.1-1.0); BUN/CREATININE RATIO 13; CALCIUM 7.6 MG/DL (8.5-10.1); CARBON DIOXIDE 24 MMOL/L (21-32); CHLORIDE 104 MMOL/L (98-107); CREATININE SERUM 0.63 MG/DL (0.60-1.30); GFR ESTIMATED > 60; GLUCOSE 134 MG/DL (70-105); POTASSIUM 3.9 MMOL/L (3.6-5.0); SODIUM 134 MMOL/L (135-145)
--- OUTSIDE RECORDS SUMMARY | 2019-09-13 11:20 | XMS REPORT | Continuity of Care Document ---
Demographics Preferred Language Unknown Marital Status Unknown Yazdanism Affiliation Unknown Race Unknown Ethnic Group Unknown Author Organization Unknown Address Unknown Phone Unavailable Allergies Active Description Code Type Severity Reaction Onset Reported/Identified Relationship to Patient Clinical Status Yes PCN (penicillin) [id number] CLASS N/A N/A Yes Penicillins [id number] Drug Aller gy Unknown Hives 09/05/2019 Yes sulfamethoxazole [id number] Drug Allergy Unknown Hives 09/05/2019 Yes trimethoprim [id number] Drug Allergy Unknown Hives 09/05/2019 Medications There [...] Food - 03/28/18 08:30 Class Description Comment U838-QuR Peanut <0.10 kU/L Class 0 Q693-YlU Soybean <0.10 kU/L Class 0 T718-VdC Wheat <0.10 kU/L Class 0 A253-IfC [place] <0.10 kU/L Class 0 I197-FzX Milk <0.10 kU/L Class 0 Q785-TpQ Pork <0.10 kU/L Class 0 N377-YkU Beef 0.25 kU/L Class 0/I Y392-DdY Chocolate/[place] <0.10 kU/L Clas s 0 D385-OhG Egg, Whole <0.10 kU/L Class 0 BP26-QjR Food Mix (Seafoods) Negative Allergens, Zone 11 - 03/28/18 08:30 Class Description Comment N420-DvP Penicillium chrysogen <0.10 kU/L Class 0 V217-EjN Cladosporium herbarum <0.10 kU/L Class 0 F801-ExQ Aspergillus fumigatus <0.10 kU/L Class 0 M572-YdU Mucor racemosus <0.10 kU/L Clas s 0 V176-VbI Alternaria alternata 1.49 kU/L Class III X988-ArO Stemphylium herbarum <0.10 kU/L Class 0 W155-JeI Plantain, Telugu 0.11 kU/L Cla ss 0/I I556-YpF Ragweed, Short 23.10 kU/L Class V E127-WhH Pigweed, Common <0.10 kU/L Clas s 0 L562-FmK [place] 1.43 kU/L Class III N853-FvI [place] Grass <0.10 kU/L Class 0 D688-ZgW [place] Grass <0.10 kU/L Class 0 L178-QyB [place], [place] <0.10 kU/L Class 0 M567-KfY Maple/[place] <0.10 kU/L Clas s 0 E461-BrU [place], White <0.10 kU/L Class 0 M918-NcB Elm, [place] <0.10 kU/L Class 0 W942-FwW [place] <0.10 kU/L Class 0 U125-HoB Maple [place] <0.10 kU/L Class 0 M713-RyU D pteronyssinus 6.54 kU/L Class IV K540-KuO D farinae 3.24 kU/L Class III Z504-VsQ Cat [place] 0.16 kU/L Class 0/I X963-RhV Dog Dander 0.10 kU/L Class 0/I N727-VhL Cockroach, [place] 0.18 kU/L C lass 0/I R316-EcB Thistle, Nepalese <0.10 kU/L Cla ss 0 H381-OnG Sheep [place] <0.10 kU/L Class 0 G873-UwU White [place] <0.10 kU/L Class 0 M844-YhO Magnus, White 0.11 kU/L Class 0/I Coronavirus SARS-CoV-2 SO 2019 - 0 13:20 Coronavirus Ab [Units/volume] in Serum Negative Negative Complete urinalysis with reflex to cultu re - 09/12/19 09:30 Urine color determination YELLOW NRG Urine clarity determination CLEAR NR G Urine pH measurement by test strip 7.0 5-9 Specific gravity of urine by test strip 1.015 1.016-1.022 Urine protein assay by test strip, semi-quantitative NEGATIVE NEGATIVE Urine glucose detection by automated test strip NE GATIVE NEGATIVE Erythrocytes detection in urine sediment by light micr oscopy NEGATIVE NEGATIVE Urine ketones detection by automated test strip 1+ NEGATIVE Urine nitrite detection by test strip NEGATIVE NEGATIVE Urine total bilirubin detection by test strip NEGA TIVE NEGATIVE Urine urobilinogen measurement by automated test strip (mass/volume) 0.2 mg/dL < = 1.0 Urine leukocyte esterase detection by dipstick NEG ATIVE NEGATIVE Automated urine sediment erythrocyte cou nt by microscopy (number/high power field) NONE NRG Automated urine sediment leukocyte count by microscopy (number/high power field) [HPF] NRG Bacteria detection in urine sediment by light microsco py TRACE NRG Squamous epithelial cells detection in u rine sediment by light microscopy 2-5 NRG Crystals detection in urine sediment by light microsco py NONE NRG Casts detection in urine sediment by light microscopy NONE NRG Mucus detection in urine sediment by light microscopy SMALL NRG Complete urinalysis with reflex to culture NO NRG Methicillin resistant Staphylococcus aur eus (MRSA) screening culture - 09/12/19 09:30 Methicillin resistant Staphylococcus aureus (MRSA) scr eening culture NEG NRG Complete blood count (CBC) with automate d white blood cell (WBC) differential - 09/12/19 09:45 Blood leukocytes automated count (number/volume) 8.9 10*3/uL 4.3-11.0 Blood erythrocytes automated count (number/volume) 4.81 10*6/uL 4.35-5.85 Venous blood hemoglobin measurement (mass/volume) 13.8 g/dL 11.5-16.0 Blood hematocrit (volume fraction) 40 % 35-52 Automated erythrocyte mean corpuscular volume 84 [ foz_us] 80-99 Automated erythrocyte mean corpuscular h emoglobin (mass per erythrocyte) 29 pg 25-34 Automated erythrocyte mean corpuscular h emoglobin concentration measurement (mass/volume) 34 g/dL 32-36 Automated erythrocyte distribution width ratio 14. 9 % 10.0- 14.5 Automated blood platelet count (count/volume) 299 10*3/uL 130-400 Automated blood platelet mean volume measurement 10.1 [foz_us] 7.4-10.4 Automated blood neutrophils/100 leukocytes 71 % 42-75 Automated blood lymphocytes/100 leukocytes 21 % 12-44 Blood monocytes/100 leukocytes 7 % 0-12 Automated blood eosinophils/100 leukocytes 2 % 0-10 Automated blood basophils/100 leukocytes 0 % 0-10 Blood neutrophils automated count (number/volume) 6.3 10*3 1.8-7.8 Blood lymphocytes automated count (number/volume) 1.9 10*3 1.0-4.0 Blood monocytes automated count (number/volume) 0. 6 10*3 0.0-1.0 Automated eosinophil count 0.2 10*3/uL 0 .0-0.3 Automated blood basophil count (count/volume) 0.0 10*3/uL 0.0-0.1 Blood type T Indirect antibody screen [facility] - 09/12/19 09:45 WRISTBAND NUMBER [id number] NRG ABO+Rh group AP NRG Blood group antibody screen NEGATIVE NR G Encounters ACCT No. Visit Date/Time Discharge Status Pt. Type Provider Facility Loc./Unit Complaint [id number] 06/30/2019 16:38:02 Document Registration [id number] 06/07/2019 13:45:24 Document Registration [id number] 06/05/2019 11:16:14 Document Registration [id number] 06/03/2019 23:53:53 Document Registration [id number] 06/03/2019 23:39:25 Document Registration [id number] 01/30/2019 16:14:43 Document Registration [id number] 01/30/2019 10:13:20 Document Registration [id number] 01/04/2019 09:00:12 Document Registration [id number] 09/05/2018 09:02:33 Document Registration [id number] 08/01/2018 10:55:07 Document Registration [id number] 07/22/2018 16:38:04 Document Registration [id number] 03/28/2018 16:08:16 Document Registration [id number] 02/22/2018 17:29:16 Document Registration [id number] 02/22/2018 15:59:12 Document Registration [id number] 12/30/2017 11:23:11 Document Registration [id number] 07/06/2017 15:20:19 Document Registration [id number] 06/24/2017 16:13:34 Document Registration [id number] 06/07/2017 09:34:00 Document Registration [id number] 05/27/2017 11:38:33 Document Registration [id number] 12/23/2016 08:39:10 Document Registration [id number] 04/01/2018 17:05:00 Document Registration [id number] 01/06/2017 10:20:00 01/06/2017 23:59: 00 DIS Outpatient [facility] [id number] 07/10/2019 15:16:35 07/10/2019 23:59: 59 CLS Outpatient Swearengin, Priya Calli [id number] 06/19/2019 10:33:54 06/19/2019 23:59: 59 CLS Outpatient Swearengin, M Calli [id number] 06/07/2019 11:59:45 06/07/2019 23:59: 59 CLS Outpatient Swearengin, M Calli [id number] 06/05/2019 10:51:56 06/05/2019 23:59: 59 CLS Outpatient Swearengin, M Calli [id number] 04/18/2019 16:03:09 04/18/2019 23:59: 59 CLS Outpatient Swearengin, M Calli [id number] 02/08/2019 11:35:34 02/08/2019 23:59: 59 CLS Outpatient Swearengin, M Calli [id number] 01/30/2019 09:02:59 01/30/2019 23:59: 59 CLS Outpatient Swearengin, M Calli [id number] 10/05/2018 12:21:24 10/05/2018 23:59: 59 CLS Outpatient Sharon Noriega [id number] 08/24/2018 16:26:37 08/24/2018 23:59: 59 CLS Outpatient Amna Marion [id number] 08/01/2018 11:03:04 08/01/2018 23:59: 59 CLS Outpatient Amna Marion [id number] 07/27/2018 15:15:26 07/27/2018 23:59: 59 CLS Outpatient Swearengin, M Calli [id number] 07/22/2018 16:18:57 07/22/2018 23:59: 59 CLS Outpatient Christal Gamez [id number] 05/05/2018 14:59:23 05/05/2018 23:59: 59 CLS Outpatient Christal Gamez [id number] 03/28/2018 08:49:56 03/28/2018 23:59: 59 CLS Outpatient Swejessicangin, Priya Calli [id number] 02/22/2018 15:52:40 02/22/2018 23:59: 59 CLS Outpatient Swearengin, Priya Calli [id number] 12/23/2017 14:50:43 12/23/2017 23:59: 59 CLS Outpatient Swejessicangin, Priya Calli [id number] 06/24/2017 08:51:26 06/24/2017 23:59: 59 CLS Outpatient Swejessicangin, Priya Calli [id number] 06/07/2017 09:46:37 06/07/2017 23:59: 59 CLS Outpatient Swearengin, Priya Calli [id number] 05/25/2017 14:33:01 05/25/2017 23:59: 59 CLS Outpatient Swejessicangin, Priya Calli [id number] 05/04/2017 16:37:34 05/04/2017 23:59: 59 CLS Outpatient Swejacksonin, Priya Calli [id number] 04/21/2017 14:50:11 04/21/2017 23:59: 59 CLS Outpatient Swejessicangtorie, Priya Calli [id number] 05/10/2016 16:17:22 05/10/2016 23:59: 59 CLS Outpatient Hira Alli [id number] 03/28/2016 13:45:33 03/28/2016 23:59: 59 CLS Outpatient Yoli Slade [id number] 12/05/2015 17:36:56 12/05/2015 23:59: 59 CLS Outpatient Mica Sepulveda [id number] 04/08/2015 10:13:47 04/08/2015 23:59: 59 CLS Outpatient Daniel Acosta [id number] 03/07/2015 20:33:43 03/07/2015 23:59: 59 CLS Outpatient Daniel Acosta [id number] 11/26/2014 22:10:21 11/26/2014 23:59: 59 CLS Outpatient Reggie Foy [id number] 11/26/2014 22:06:29 11/26/2014 23:59: 59 CLS Outpatient Reggie Foy [id number] 05/22/2014 15:20:13 05/22/2014 23:59: 59 CLS Outpatient Reggie Foy [id number] 03/06/2014 14:47:11 03/06/2014 23:59: 59 CLS Outpatient Daniel Acosta [id number] 08/01/2013 09:38:01 08/01/2013 23:59: 59 CLS Outpatient Lia Chino [id number] 04/01/2018 17:05:00 Document Registration [id number] 02/27/2016 13:06:00 Document Registration [id number] 09/08/2019 08:52:00 020 14:42:00 DIS Outpatient LEIA SANCHEZ DO [facility] PREOP UTERINE FIBROID, STRESS URINARY INCONTINENCE [id number] 09/13/2019 09:15:[address] Inpatient LEIA SANCHEZ DO Via [facility] 4TH BOWEL PERFORATION
[2019-09-13] MEDS: SIMETHICONE 80 MG (MYLICON) CHEW PO PRN ×2 (13:54→23:20)
[2019-09-13] MEDS: RT-ALBUTEROL SULF 2.5 MG/3 ML PRE-MIX VIAL INH SCH ×2 (14:47→18:09)
--- NOTE | 2019-09-13 15:10 | Anesthesia-General Post-Op ---
General Patient Condition Mental Status/LOC: Same as Preop Cardiovascular: Satisfactory Nausea/Vomiting: Absent Respiratory: Satisfactory Pain: Controlled Complications: Absent Post Op Complications Complications None Follow Up Care/Instructions Patient Instructions None needed. Anesthesia/Patient Condition Patient Condition Patient is doing well, no complaints, stable vital signs, no apparent adverse anesthesia problems. She is ambulating well. YONY NARANJO DO September 13, 2019 15:10
[2019-09-13] MEDS ORDERED: RT-ALBUTEROL SULF 2.5 MG/3 ML PRE-MIX VIAL INH PRN (17:00)
--- NOTE | 2019-09-13 17:13 | Progress Note - Surgery ---
Subjective Date Seen by a Provider: September 13, 2019 Time Seen by a Provider: 09:00 Subjective/Events-last exam Pain controlled. Having some pain upper chest into right clavicle and neck area. Tolerating liquids. No flatus or bm. Has been up walking. Using incentive spirometer. Denies n/v fever sweats chills shortness of breath or chest pain at this time. Objective Exam Vital Signs Date Time Temp Pulse Resp B/P (MAP) Pulse Ox O2 Delivery O2 Flow Rate FiO2 09/13/19 15:53 37.4 80 18 126/66 (86) 93 Nasal Cannula 2.00 09/13/19 14:47 91 Nasal Cannula 2.00 09/13/19 13:44 93 Nasal Cannula 2.00 09/13/19 13:22 36.9 76 93 28 09/13/19 13:04 88 09/13/19 11:20 36.9 72 20 116/58 (77) 92 Nasal Cannula 2.00 09/13/19 10:50 Nasal Cannula 2.00 09/13/19 08:11 36.9 72 20 121/56 (77) 94 Nasal Cannula 2.00 09/13/19 08:00 96 Nasal Cannula 2.00 09/13/19 07:03 72 09/13/19 04:00 36.9 77 20 133/63 (86) 91 NIV CPAP 2.00 09/13/19 01:00 88 09/13/19 00:17 37.1 86 21 135/64 (87) 96 NIV CPAP 09/12/19 23:40 88 09/12/19 20:00 96 NIV CPAP 2.00 09/12/19 19:17 36.0 79 16 149/87 (107) 96 Nasal Cannula 2.00 09/12/19 18:43 36.1 76 14 155/89 (111) 96 Nasal Cannula 2.00 09/12/19 18:20 Nasal Cannula 2 09/12/19 18:20 36.4 18 153/80 (104) 94 Nasal Cannula 2 09/12/19 18:10 18 151/82 (105) 95 Nasal Cannula 2 09/12/19 18:06 Nasal Cannula 2 09/12/19 18:00 Room Air 09/12/19 18:00 18 150/91 (110) 94 Room Air 09/12/19 17:53 OxyMask 5 09/12/19 17:50 18 119/81 (94) 96 OxyMask 5 09/12/19 17:46 OxyMask 6 09/12/19 17:40 18 149/83 (105) 94 OxyMask 6 09/12/19 17:35 OxyMask 6 09/12/19 17:30 18 146/79 (101) 95 OxyMask 6 09/12/19 17:21 OxyMask 6 09/12/19 17:21 36.5 12 156/84 (108) 99 OxyMask 6 I & O 09/13/19 07:00 Intake Total 1660 ml Output Total 1175 ml Balance 485 ml Capillary Refill : Less Than 3 SecondsLess Than 3 Seconds General Appearance: No Apparent Distress, WD/WN HEENT: PERRL/EOMI Neck: Supple Respiratory: No Accessory Muscle Use, No Respiratory Distress Cardiovascular: Regular Rate, Rhythm Gastrointestinal: soft, other (incision slight serosang drainage no surrounding erythema or signs of infection) Extremity: Non Tender Neurologic/Psychiatric: Alert, Oriented x3 Skin: Normal Color, Warm/Dry Lymphatic: No Adenopathy Results Lab Laboratory Tests 09/13/19 09:45: White Blood Count 10.0, Red Blood Count 4.17L, Hemoglobin 11.5, Hematocrit 36, Mean Corpuscular Volume 86, Mean Corpuscular Hemoglobin 28, Mean Corpuscular Hemoglobin Concent 32, Red Cell Distribution Width 15.0H, Platelet Count 259, Mean Platelet Volume 10.1, Neutrophils (%) (Auto) 82H, Lymphocytes (%) (Auto) 11L, Monocytes (%) (Auto) 7, Eosinophils (%) (Auto) 0, Basophils (%) (Auto) 0, Neutrophils # (Auto) 8.2H, Lymphocytes # (Auto) 1.1, Monocytes # (Auto) 0.7, Eosinophils # (Auto) 0.0, Basophils # (Auto) 0.0, Sodium Level 134L, Potassium Level 3.9, Chloride Level 104, Carbon Dioxide Level 24, Anion Gap 6, Blood Urea Nitrogen 8, Creatinine 0.63, Estimat Glomerular Filtration Rate > 60, BUN/Creatinine Ratio 13, Glucose Level 134H, Calcium Level 7.6L, Corrected Calcium 8.2L, Total Bilirubin 0.7, Aspartate Amino Transf (AST/SGOT) 16, Alanine Aminotransferase (ALT/SGPT) 13, Alkaline Phosphatase 63, Total Protein 6.0L, Albumin 3.3 Microbiology 09/12/19 MRSA Screen - Final, Complete MRSA not isolated Assessment/Plan Assessment/Plan Assessment/Plan bowel perforation s/p robotic hysterectomy lap hand assisted low anterior resection with end to end anastomosis ambulate clears, can advance when bowel function returns incentive spirometry Clinical Quality Measures DVT/VTE Risk/Contraindication: Risk Factor Score Per Nursin RFS Level Per Nursing on Admit: 4+=Very High DANUTA MARTÍNEZ DO September 13, 2019 17:13
[2019-09-13] MEDS: traZODone 50 MG (DESYREL) TAB PO SCH (21:09)
[2019-09-13] MEDS: ENOXAPARIN 40 MG/0.4 ML (LOVENOX) SYR SC SCH (21:10)
[2019-09-13] MEDS: IBUPROFEN 600 MG (MOTRIN) TAB PO SCH (23:15)
[2019-09-14] MEDS: LACTATED RINGERS 1,000 ML IV SCH ×2 (02:47→09:15)
[2019-09-14 04:00] VITALS: BP 136/73
[2019-09-14] MEDS: IBUPROFEN 600 MG (MOTRIN) TAB PO SCH ×2 (04:37→09:13)
[2019-09-14] MEDS: ACETAMINOPHEN 500 MG TAB (TYLENOL) PO SCH ×2 (06:18→14:31)
[2019-09-14] MEDS: RT-ALBUTEROL SULF 2.5 MG/3 ML PRE-MIX VIAL INH SCH ×3 (07:51→15:08)
[2019-09-14 08:00] VITALS: BP 138/72
[2019-09-14] MEDS: ENOXAPARIN 40 MG/0.4 ML (LOVENOX) SYR SC SCH (08:52)
[2019-09-14] MEDS: PANTOPRAZOLE 40 MG (PROTONIX) VIAL IV SCH (08:52)
--- NOTE | 2019-09-14 10:54 | Progress Note - Surgery ---
Subjective Date Seen by a Provider: September 14, 2019 Time Seen by a Provider: 09:01 Subjective/Events-last exam Pain controlled. Using IS. Passing flatus. Denies n/v fever sweats chills shortness of breath or chest pain. Objective Exam Vital Signs Date Time Temp Pulse Resp B/P (MAP) Pulse Ox O2 Delivery O2 Flow Rate FiO2 09/14/19 08:00 36.5 81 18 138/72 (94) 91 Nasal Cannula 2.00 09/14/19 07:51 94 Nasal Cannula 2.00 09/14/19 07:01 77 09/14/19 04:00 36.8 72 18 136/73 (94) 92 NIV CPAP 2.00 09/14/19 01:00 80 09/13/19 23:40 38.4 110 20 158/88 (111) 96 Nasal Cannula 2.00 09/13/19 22:14 96 Nasal Cannula 2.00 09/13/19 19:33 37.2 94 18 136/71 (92) 93 Nasal Cannula 2.00 09/13/19 19:00 90 09/13/19 18:08 95 Nasal Cannula 2.00 09/13/19 15:53 37.4 80 18 126/66 (86) 93 Nasal Cannula 2.00 09/13/19 14:47 91 Nasal Cannula 2.00 09/13/19 13:44 93 Nasal Cannula 2.00 09/13/19 13:22 36.9 76 93 28 09/13/19 13:04 88 09/13/19 11:20 36.9 72 20 116/58 (77) 92 Nasal Cannula 2.00 I & O 09/14/19 07:00 Intake Total 4020 ml Output Total 1400 ml Balance 2620 ml Capillary Refill : Less Than 3 SecondsLess Than 3 Seconds General Appearance: No Apparent Distress, WD/WN HEENT: PERRL/EOMI Neck: Supple Respiratory: No Accessory Muscle Use, No Respiratory Distress Cardiovascular: Regular Rate, Rhythm Gastrointestinal: soft, other (incision c/d/i no surrounding erythema or signs of infection) Extremity: Non Tender Neurologic/Psychiatric: Alert, Oriented x3 Skin: Normal Color, Warm/Dry Lymphatic: No Adenopathy Results Lab Microbiology 09/12/19 MRSA Screen - Final, Complete MRSA not isolated Assessment/Plan Assessment/Plan Assessment/Plan bowel perforation s/p robotic hysterectomy lap hand assisted low anterior resection with end to end anastomosis ambulate advance when bowel function returns incentive spirometry if tolerates diet and pain controlled orally could dc home possibly later today. Clinical Quality Measures DVT/VTE Risk/Contraindication: Risk Factor Score Per Nursin RFS Level Per Nursing on Admit: 4+=Very High DANUTA MARTÍNEZ DO September 14, 2019 10:54
[2019-09-14 12:08] VITALS: BP 143/74
[2019-09-14] MEDS ORDERED: SIME80TA16 PO (12:52)
[2019-09-14] MEDS ORDERED: IBUP-844 PO (12:52)
[2019-09-14] MEDS ORDERED: DOCU-143 PO (12:52)
[2019-09-14] MEDS ORDERED: ACET-93 PO (12:52)
[2019-09-14] MEDS ORDERED: TRZ50T PO (12:52)
[2019-09-14] MEDS ORDERED: OXYC5TAB96 PO (12:52)
--- NOTE | 2019-09-14 12:55 | Discharge Inst-Women's Service ---
Discharge Inst-Women's Serv Depart Medication/Instructions New, Converted or Re-Newed RX: Other (transmitted and on charg) Instructions nothing in the vagina until follow up. no lifting over 10 lbs no driving for 1 week Final Diagnosis uterine fibroids enteropelvic adhesions left ovarian cyst bowel injury Problems Reviewed?: Yes Consults/Follow Up Additional Follow Up: Yes (2 weeks for incision check with Roxana Garcia and Jenae/staple removal (try to make same day if possible), 10-12 weeks for pelvic exm with Dr. Garcia) Activity Activity: Activity as Tolerated (see above) Driving Instructions: No Driving for 1 Week NO SMOKING: NO SMOKING Nothing Inside Vagina: No Douching, No [place], No Tampons Diet Discharge Diet: No Restrictions Symptoms to Report to : Swelling Increased, Bleeding Excessive, Pain Increased, Fever Over 101 Degrees F, Vaginal Bleeding Increase, Cramps in Feet or Legs, Vaginal Discharge Foul For Any Problems or Questions: Contact Your Physician Skin/Wound Care Infection Signs and Symptoms: Increased Redness, Foul Odor of Wound, Increased Drainage, Skin Itchy or Has a Rash, Increased Swelling, Temperature Above 101 F Operative Area Clean and Dry: Keep Incision Clean/Dry, You May Remove Bandage Stitches/[place]/Dermabond: Dermabond Bathing Instructions: LEIA Mendez DO September 14, 2019 12:55
--- NOTE | 2019-09-14 12:58 | Progress Note ---
Subjective Date Seen by a Provider: September 14, 2019 Time Seen by a Provider: 12:45 Subjective/Events-last exam + Flatus Diet advanced. Will consider DC home later today if ok with surgery Review of Systems Cardiovascular: No: Chest Pain Gastrointestinal: No: Nausea, Vomiting, Diarrhea, Constipation Objective Exam Vital Signs Date Time Temp Pulse Resp B/P (MAP) Pulse Ox O2 Delivery O2 Flow Rate FiO2 09/14/19 12:08 36.7 94 20 143/74 (97) 93 Room Air 09/14/19 11:14 90 Room Air 09/14/19 08:00 36.5 81 18 138/72 (94) 91 Nasal Cannula 2.00 09/14/19 07:51 94 Nasal Cannula 2.00 09/14/19 07:01 77 09/14/19 04:00 36.8 72 18 136/73 (94) 92 NIV CPAP 2.00 09/14/19 01:00 80 09/13/19 23:40 38.4 110 20 158/88 (111) 96 Nasal Cannula 2.00 09/13/19 22:14 96 Nasal Cannula 2.00 09/13/19 19:33 37.2 94 18 136/71 (92) 93 Nasal Cannula 2.00 09/13/19 19:00 90 09/13/19 18:08 95 Nasal Cannula 2.00 09/13/19 15:53 37.4 80 18 126/66 (86) 93 Nasal Cannula 2.00 09/13/19 14:47 91 Nasal Cannula 2.00 09/13/19 13:44 93 Nasal Cannula 2.00 09/13/19 13:22 36.9 76 93 28 09/13/19 13:04 88 I & O 09/14/19 07:00 Intake Total 4020 ml Output Total 1400 ml Balance 2620 ml Capillary Refill : Less Than 3 SecondsLess Than 3 Seconds General Appearance: No Apparent Distress Respiratory: Chest Non Tender, Lungs Clear, Normal Breath Sounds Cardiovascular: Regular Rate, Rhythm Gastrointestinal: normal bowel sounds, distended; No guarding, No rebound; other (Inc c/d/i) Results Lab Microbiology 09/12/19 MRSA Screen - Final, Complete MRSA not isolated Assessment/Plan Assessment/Plan Assess & Plan/Chief Complaint POD 2 s/p RaTH, bilateral salpingectomy, left ovarian cystectomy, bowel injury 2. end to end reanastomosis done by surgery Consider dc home today if continues to do well. Clinical Quality Measures Admission Status Admission Dx 1. Uterine fibroids 2. Abnormal uterine bleeding 3. Anemia 4. Prolapse 5. Stress incontinence Plan - RaTH, bilateral salpingectomy, possible BSO AP repair PV sling See previous h&P DVT/VTE Risk/Contraindication: Risk Factor Score Per Nursin RFS Level Per Nursing on Admit: 4+=Very High LEIA SANCHEZ DO September 14, 2019 12:58
[2019-09-14 15:10] VITALS: BP 143/74
--- NOTE | 2019-09-14 15:10 | NUR ---
HERI HANSEN demonstrates understanding of discharge instructions and accurately returns instructions upon questioning. Copy of Post-Discharge Instructions and Medication Discharge Instructions given to PT. HERI HANSEN is able to manage continuing needs after discharge. Patients belongings returned to PT. Skin dry and intact; no breakdown noted. Patient discharged from 411-1 on at 1310. HERI HANSEN left floor via WC, accompanied by STAFF.
[2019-09-14] MEDS ORDERED: MONTELUKAST 10 MG (SINGULAIR) TAB PO SCH (21:00)
--- OUTSIDE RECORDS SUMMARY | 2019-09-25 17:06 | XMS REPORT | Continuity of Care Document ---
Demographics Preferred Language Unknown Marital Status Unknown [employer] Affiliation Unknown Race Unknown Ethnic Group Unknown Author Organization Unknown Address Unknown Phone Unavailable Allergies Active Description Code Type Severity Reaction Onset Reported/Identified Relationship to Patient Clinical Status Yes PCN (penicillin) 96232428 CLASS N/A N/A Yes Penicillins [id number] Drug Aller gy Unknown Hives 09/05/2019 Yes sulfamethoxazole [id number] Drug Allergy Unknown Hives 09/05/2019 Yes trimethoprim [id number] Drug Allergy Unknown Hives 09/05/2019 Medications There is no data. Problems Date Dx Coded Attending Type Code Diagnosis Diagnosed By 03/18/1441 LEIA SANCHEZ DO Ot Z01.8 18 ENCOUNTER FOR OTHER PREPROCEDURAL EXAMIN 03/18/1441 LEIA SANCHEZ DO Ot Z11.5 9 ENCOUNTER FOR SCREENING FOR OTHER VIRAL 09/19/2018 P M542 Cervi calgia 09/19/2018 S M546 Pain in thoracic spine 06/30/2019 S K769 Liver disease, unspecified 06/30/2019 S R109 Unspe cified abdominal pain 06/30/2019 P R160 Hepat omegaly, not elsewhere classified 06/30/2019 S R799 Abnor mal finding of blood chemistry, unspecified 09/06/2019 PIETER SANCHEZ DOA C Ot Z01.8 18 ENCOUNTER FOR OTHER PREPROCEDURAL EXAMIN 09/08/2019 LEIA SANCHEZ DO Ot Z01.8 18 ENCOUNTER FOR OTHER PREPROCEDURAL EXAMIN 09/14/2019 LEIA SANCHEZ DO C Ot D25.9 LEIOMYOMA OF UTERUS, UNSPECIFIED 09/14/2019 DANIEL MANRIQUEZ LEIA C Ot G47.3 0 SLEEP APNEA, UNSPECIFIED 09/14/2019 PIETER SANCHEZ DOA Jairo Ot K91.7 2 ACC PNCTR LAC OF A DGSTV SYS ORG DURIN 09/14/2019 LEIA SANCHEZ DO Ot N32.8 9 OTHER SPECIFIED DISORDERS OF BLADDER 09/14/2019 LEIA SANCHEZ DO C Ot N39.3 STRESS INCONTINENCE (FEMALE) (MALE) 09/14/2019 LEIA SANCHEZ DO Ot N73.6 FEMALE PELVIC PERITONEAL ADHESIONS (POST 09/14/2019 LEIA SANCHEZ DO Ot N83.2 02 UNSPECIFIED OVARIAN CYST, LEFT SIDE 09/14/2019 DANIEL MANRIQUEZ LEIA Gill Ot N83.8 OTH NONINFLAMMATORY DISORD OF OVARY, FAL 09/14/2019 LEIA SANCHEZ DO Ot N85.2 HYPERTROPHY OF UTERUS 09/14/2019 DANIEL MANRIQUEZ LEIA Gill Ot N85.8 OTHER SPECIFIED NONINFLAMMATORY DISORDER 09/14/2019 DANIEL MANRIQUEZ LEIA Gill Ot N93.9 ABNORMAL UTERINE AND VAGINAL BLEEDING, U 09/14/2019 LEIA SANCHEZ DO Ot S36.63XA LACERATION OF RECTUM, INITIAL ENCOUNTER Procedures Code Description Performed By Per gilmer On [id number] EX CISION OF RECTUM, OPEN APPROACH 09/12/2019 Results Test Result Range Hgb A1c with eAG Estimation - 02/26/16 0 8:20 Hemoglobin A1c 5.7 % 4.8-5.6 Estim. Avg Glu (eAG) 117 mg/dL Allergen Profile, Basic Food - 03/28/18 08:30 Class Description Comment M647-SxF Peanut <0.10 kU/L Class 0 O868-ZoF Soybean <0.10 kU/L Class 0 W488-GhQ Wheat <0.10 kU/L Class 0 F269-DeT [place] <0.10 kU/L Class 0 X503-FqM Milk <0.10 kU/L Class 0 J070-LsG Pork <0.10 kU/L Class 0 A330-PxD Beef 0.25 kU/L Class 0/I W619-MhO Chocolate/[place] <0.10 kU/L Clas s 0 G334-TeM Egg, Whole <0.10 kU/L Class 0 CZ43-QtG Food Mix (Seafoods) Negative Allergens, Zone 11 - 03/28/18 08:30 Class Description Comment H379-GjH Penicillium chrysogen <0.10 kU/L Class 0 V245-FbK Cladosporium herbarum <0.10 kU/L Class 0 V184-UsT Aspergillus fumigatus <0.10 kU/L Class 0 G742-AkW Mucor racemosus <0.10 kU/L Clas s 0 G987-BjN Alternaria alternata 1.49 kU/L Class III Z776-WkA Stemphylium herbarum <0.10 kU/L Class 0 E598-ZzF Plantain, Nauruan 0.11 kU/L Cla ss 0/I H583-BrF Ragweed, Short 23.10 kU/L Class V P914-CpN Pigweed, Common <0.10 kU/L Clas s 0 Z457-XvW [place] 1.43 kU/L Class III Z678-KmP [place] Grass <0.10 kU/L Class 0 L506-YpF Immanuel Grass <0.10 kU/L Class 0 S591-JnQ [place], [place] <0.10 kU/L Class 0 A839-LqN Maple/[place] <0.10 kU/L Clas s 0 H575-FrK [place], White <0.10 kU/L Class 0 V119-WrH Elm, Guinean <0.10 kU/L Class 0 V507-KhZ [place] <0.10 kU/L Class 0 G645-MqS Maple [place] <0.10 kU/L Class 0 E962-JbP D pteronyssinus 6.54 kU/L Class IV Q973-ZuB D farinae 3.24 kU/L Class III S273-DwM Cat Dander 0.16 kU/L Class 0/I J707-VmP Dog Dander 0.10 kU/L Class 0/I P600-XyA Cockroach, Guinean 0.18 kU/L C lass 0/I M851-AgA Thistle, Hungarian <0.10 kU/L Cla ss 0 K368-PtX Sheep [employer] <0.10 kU/L Class 0 A363-UkY White [place] <0.10 kU/L Class 0 U425-ShT Magnus, White 0.11 kU/L Class 0/I Coronavirus [...] 0.0-0.1 Blood type T Indirect antibody screen pa margarito - 09/12/19 09:45 WRISTBAND NUMBER [id number] NRG ABO+Rh group AP NRG Blood group antibody screen NEGATIVE NR G Comprehensive metabolic panel - 09/13/19 09:45 Serum or plasma sodium measurement (moles/volume) 134 mmol/L 135-145 Serum or plasma potassium measurement (moles/volume) 3.9 mmol/L 3.6-5.0 Serum or plasma chloride measurement (moles/volume) 104 mmol/L 98-107 Carbon dioxide 24 mmol/L 21-32 Serum or plasma anion gap determination (moles/volume) 6 mmol/L 5-14 Serum or plasma urea nitrogen measurement (mass/volume ) 8 mg/dL 7-18 Serum or plasma creatinine measurement (mass/volume) 0.63 mg/dL 0.60-1.30 Serum or plasma urea nitrogen/creatinine mass ratio 13 NRG Serum or plasma creatinine measurement w ith calculation of estimated glomerular filtration rate > NRG Serum or plasma glucose measurement (mass/volume) 134 mg/dL 70-105 Serum or plasma calcium measurement (mass/volume) 7.6 mg/dL 8.5-10.1 Serum or plasma total bilirubin measurement (mass/volu me) 0.7 mg/dL 0.1-1.0 Serum or plasma alkaline phosphatase ginette surement (enzymatic activity/volume) 63 U/L 40-136 Serum or plasma aspartate aminotransfera se measurement (enzymatic activity/volume) 16 U/L 5-34 Serum or plasma alanine aminotransferase measurement (enzymatic activity/volume) 13 U/L 0-55 Serum or plasma protein measurement (mass/volume) 6.0 g/dL 6.4-8.2 Serum or plasma albumin measurement (mass/volume) 3.3 g/dL 3.2-4.5 CALCIUM CORRECTED 8.2 mg/dL 8.5-10.1 Encounters ACCT No. Visit Date/Time Discharge Status Pt. Type Provider Facility Loc./Unit Complaint [id number] 06/30/2019 16:38:02 Document Registration [id number] 06/07/2019 13:45:24 Document Registration [id number] 06/05/2019 11:16:14 Document Registration [id number] 06/03/2019 23:53:53 Document Registration [id number] 06/03/2019 23:39:25 Document Registration [id number] 01/30/2019 16:14:43 Document Registration [id number] 01/30/2019 10:13:20 Document Registration [id number] 01/04/2019 09:00:12 Document Registration [id number] 09/05/2018 09:02:33 Document Registration [id number] 08/01/2018 10:55:07 Document Registration [id number] 07/22/2018 16:38:04 Document Registration [id number] 03/28/2018 16:08:16 Document Registration [id number] 02/22/2018 17:29:16 Document Registration [id number] 02/22/2018 15:59:12 Document Registration [id number] 12/30/2017 11:23:11 Document Registration [id number] 07/06/2017 15:20:19 Document Registration [id number] 06/24/2017 16:13:34 Document Registration [id number] 06/07/2017 09:34:00 Document Registration [id number] 05/27/2017 11:38:33 Document Registration [id number] 12/23/2016 08:39:10 Document Registration [id number] 04/01/2018 17:05:00 Document Registration [id number] 01/06/2017 10:20:00 01/06/2017 23:59: 00 DIS Outpatient Edmund Fonseca [facility] [place] [id number] 07/10/2019 15:16:35 07/10/2019 23:59: 59 CLS Outpatient Priya Pinto [id number] 06/19/2019 10:33:54 06/19/2019 23:59: 59 CLS Outpatient Priya Pinto [id number] 06/07/2019 11:59:45 06/07/2019 23:59: 59 CLS Outpatient Priya Pinto [id number] 06/05/2019 10:51:56 06/05/2019 23:59: 59 CLS Outpatient Swearengtorie, Priya Mccurdy [id number] 04/18/2019 16:03:09 04/18/2019 23:59: 59 CLS Outpatient Hiwotngtorie, Priya Mccurdy [id number] 02/08/2019 11:35:34 02/08/2019 23:59: 59 CLS Outpatient Hiwotngtorie, Priya Mccurdy [id number] 01/30/2019 09:02:59 01/30/2019 23:59: 59 CLS Outpatient Hiwotngtorie, Priya Mccurdy [id number] 10/05/2018 12:21:24 10/05/2018 23:59: 59 CLS Outpatient Sharon Noriega [id number] 08/24/2018 16:26:37 08/24/2018 23:59: 59 CLS Outpatient Amna Marion [id number] 08/01/2018 11:03:04 08/01/2018 23:59: 59 CLS Outpatient Amna Marion [id number] 07/27/2018 15:15:26 07/27/2018 23:59: 59 CLS Outpatient Millie, Priya Mccurdy [id number] 07/22/2018 16:18:57 07/22/2018 23:59: 59 CLS Outpatient Christal Gamez [id number] 05/05/2018 14:59:23 05/05/2018 23:59: 59 CLS Outpatient Christal Gamez [id number] 03/28/2018 08:49:56 03/28/2018 23:59: 59 CLS Outpatient Priya Pinto [id number] 02/22/2018 15:52:40 02/22/2018 23:59: 59 CLS Outpatient Swejessicangin, Priya Nicoley [id number] 12/23/2017 14:50:43 12/23/2017 23:59: 59 CLS Outpatient Swejessicangin, Priya Nicoley [id number] 06/24/2017 08:51:26 06/24/2017 23:59: 59 CLS Outpatient Hiwotngtorie, Priya Nicoley [id number] 06/07/2017 09:46:37 06/07/2017 23:59: 59 CLS Outpatient Swejessicangtorie, Priya Nicoley [id number] 05/25/2017 14:33:01 05/25/2017 23:59: 59 CLS Outpatient Swejessicangin, Priya Nicoley [id number] 05/04/2017 16:37:34 05/04/2017 23:59: 59 CLS Outpatient Priya Pinto [id number] 04/21/2017 14:50:11 04/21/2017 23:59: 59 CLS Outpatient Priya Pinto [id number] 05/10/2016 16:17:22 05/10/2016 23:59: 59 CLS Outpatient Alli Iniguez [id number] 03/28/2016 13:45:33 03/28/2016 23:59: 59 CLS Outpatient Yoli Slade [id number] 12/05/2015 17:36:56 12/05/2015 23:59: 59 CLS Outpatient Mica Sepulveda [id number] 04/08/2015 10:13:47 04/08/2015 23:59: 59 CLS Outpatient Daniel Acosta [id number] 03/07/2015 20:33:43 03/07/2015 23:59: 59 CLS Outpatient Daniel Acosta [id number] 11/26/2014 22:10:21 11/26/2014 23:59: 59 CLS Outpatient Reggie Foy [id number] 11/26/2014 22:06:29 11/26/2014 23:59: 59 CLS Outpatient SurinderReggie rae [id number] 05/22/2014 15:20:13 05/22/2014 23:59: 59 CLS Outpatient Reggie Foy [id number] 03/06/2014 14:47:11 03/06/2014 23:59: 59 CLS Outpatient Daniel Acosta [id number] 08/01/2013 09:38:01 08/01/2013 23:59: 59 CLS Outpatient Lia Chino [id number] 04/01/2018 17:05:00 Document Registration [id number] 02/27/2016 13:06:00 Document Registration [id number] 09/12/2019 09:15:00 15:10:00 DIS Inpatient LEIA SANCHEZ DO [facility] 4TH BOWEL PERFORATION [id number] 09/08/2019 08:52:00 020 14:42:00 DIS Outpatient LEIA SANCHEZ DO [facility] PREOP UTERINE FIBROID, STRESS URINARY INCONTINENCE
== END 2019-09-14 15:10 | disposition home or self-care (01) | DRG 909 ==
LOC: SDC 09:15 → 4TH 09:15 → EDSTATUS 09:45 → SDC 19:45 → 4TH 19:45 → SDC 09-13 09:15 → 4TH 09-13 09:15 → UNDOADMIN 09-13 09:15 → UNDODISIN 09-14 15:10
PROVIDERS: ADMIT Obstetrics & Gynecology; ATTEND Obstetrics & Gynecology
PROC: 0UT94ZZ Resection of Uterus, Percutaneous Endoscopic Approach (ICD-10-PCS; 2019-09-12)
PROC: 0UTC4ZZ Resection of Cervix, Percutaneous Endoscopic Approach (ICD-10-PCS; 2019-09-12)
PROC: 0UB14ZX Excision of Left Ovary, Percutaneous Endoscopic Approach, Diagnostic (ICD-10-PCS; 2019-09-12)
PROC: 0DBP0ZZ Excision of Rectum, Open Approach (ICD-10-PCS; principal; 2019-09-12 11:57)
PROC: 0UT74ZZ Resection of Bilateral Fallopian Tubes, Percutaneous Endoscopic Approach (ICD-10-PCS; 2019-09-12 11:57)
DX: K91.72 Accidental puncture and laceration of a digestive system organ or structure during other procedure (principal); D25.9 Leiomyoma of uterus, unspecified; N83.202 Unspecified ovarian cyst, left side; N83.8 Other noninflammatory disorders of ovary, fallopian tube and broad ligament; N73.6 Female pelvic peritoneal adhesions (postinfective); N93.9 Abnormal uterine and vaginal bleeding, unspecified; N85.2 Hypertrophy of uterus; N85.8 Other specified noninflammatory disorders of uterus; N32.89 Other specified disorders of bladder; G47.30 Sleep apnea, unspecified; N39.3 Stress incontinence (female) (male); Y65.8 Other specified misadventures during surgical and medical care
CPT/HCPCS: 36415; 80053; 81000; 84703; 85025; 86850; 86900; 86901; 87081; 88305; 88307; 94640; 94664; 94760